=== PATIENT | female | born 1965 | race Caucasian/White ===

== ENCOUNTER 2017-06-10 04:12 | Inpatient (IN) | payer BC ==
[~2017-06-10] VITALS: Ht 144.8 cm; Wt 65.6 kg
[2017-06-10 05:40] VITALS: BP 97/52; RESP 20
[2017-06-10] MEDS ORDERED: METF500T4 PO (06:41)
[2017-06-10 08:00] VITALS: BP 81/50; RESP 19
[2017-06-10 09:00] VITALS: BP 101/52; PULSE 102
[2017-06-10] MEDS ORDERED: ACETAMINOPHEN 650 MG SUPP PR PRN (09:30)
[2017-06-10] MEDS ORDERED: DOCUSATE SODIUM 100 MG CAP PO PRN (09:30)
[2017-06-10] MEDS ORDERED: NACL 0.9% 3 ML SYG IV SCH (09:30)
[2017-06-10] MEDS ORDERED: MAGNESIUM HYDROXIDE 30ML CUP PO PRN (09:30)
[2017-06-10] MEDS ORDERED: ONDANSETRON 4 MG INJ IV PRN (09:30)
[2017-06-10] MEDS ORDERED: BISACODYL 10 MG SUPP PR PRN (09:30)
[2017-06-10] MEDS: SOD CHLORIDE 0.9% 1,000 ML IV SCH ×2 (10:05→20:34)
--- NOTE | 2017-06-10 10:15 | HP ---
Date/Time of Note Date/Time of Note DATE: 06/10/17 TIME: 10:09 Assessment/Plan VTE Prophylaxis VTE Prophylaxis Intervention: SCD's Lines/Catheters [facility] Saline Lock Assessment/Plan Chief Complaint/Hosp Course Medical/surgical history 1. Reported abdominal pain secondary to pyelonephritis. Patient noted with positive leukocyte esterase test. Follow-up on urine culture. Start on antibiotic for now. Will provide with antipyretics as needed. 2. Mild hydroureteronephrosis. Patient was seen with abdominal pelvic CT scan showing hydroureteral ureteronephrosis with a 5 x 4 mm calculus in the left ureterovesicular junction. Patient also seen with some AK I. Baseline renal function unknown. Will provide with IV hydration. Will get urologist pending clinical course. 3. Acute kidney injury on likely chronic kidney disease. Start on IV hydration for now. Will plan for renal consultation 4. Hyponatremia. Provide with IV hydration. Follow-up on electrolytes. 5. Diabetes. Follow-up on A1c. Start insulin regimen for now. Will adjust as needed. 6. History of dyslipidemia. Follow-up on fasting lipid panel. 7. Ventral hernia. Patient with no reports of pain at this time. Patient instructed for outpatient follow-up. 8. Possible liver cirrhosis per abdominal imaging. Patient with no reported alcohol abuse. Follow-up on hepatic panel. Follow-up on LFT. 9. Diverticulosis without diverticulitis. Stable at present. Will monitor. Admission process 40 minutes Discussed plan of care with Dr. Lawton Problems: HPI/ROS Admit Date/Time Admit Date/Time Jun 10, 2017 at 05:49 Hx of Present Illness This is a 51-year-old female with history of diabetes, dyslipidemia, cholelithiasis status post cholecystectomy, umbilical hernia (for 25 years reportedly), who came to [facility] due to reports of flank pain. Patient was initially transferred from outside hospital due to insurance reasons. Patient did report that reason for coming to the hospital was that she had abdominal pain on bilateral flanks side posteriorly for 3 days duration. She also reported having some fevers and subjective chills. She also had some dysuria and suspect hematuria. Subsequently she went to [facility] initially for further evaluation. Upon examination she had a CT scan of her abdomen and pelvis that initially did show her to have mild left hydroureteronephrosis traceable to a 5 x 4 mm calculus at the left ureterovesicular junction. There is also seen mild perinephric inflammatory stranding of the left kidney additionally tiny nonobstructing left lower pole renal calculus. Patient was seen also incidentally with development of nodular contour of the liver concerning for possible cirrhosis with hepatomegaly and portal hypertension. She was seen also with a stable left adrenal gland adenoma as well as splenomegaly. Enlarging fat-containing left paracentral ventral hernia seen again measuring 7.7 x 6.5 centimeters. She was seen with diverticulosis without diverticulitis. Patient denies any anterior abdominal pain and reports primary pain is on bilateral flanks. She denies any history of recurrent UTI. Blood work done at [facility] did show to have white count of 9.3 and some anemia with 12.3 and hematocrit 35.7. She was noted to be hyponatremic with sodium 131. She was seen also with some renal insufficiency with BUN of 43 and creatinine of 1.3. She did have a glucose also at 231. She was also noted with a positive leukocyte esterase test. Currently the patient remains afebrile. She states that the pain subsequently has subsided on bilateral flank only pain 2 out of intensity nonradiating. We will evaluate her for the aformentiond issues ROS 12 point review of systems obtained and entirely negative except that mentioned in history of present illness PMH/Family/Social Past Medical History Medical/surgical history diabetes, dyslipidemia, cholelithiasis status post cholecystectomy, umbilical hernia (for 25 years reportedly), Social History Smoking Status: Never smoker Exam/Review of Systems Vital Signs Vitals Vital Signs Date Time Temp Pulse Resp B/P Pulse Ox O2 Delivery O2 Flow Rate FiO2 06/10/17 08:00 98.8 106 19 81/50 95 Exam Constitutional: alert, oriented Psych: nl mood/affect Head: normocephalic Respiratory: clear to auscultation Cardiovascular: nl pulses, regular rate and rhythm Gastrointestinal: other (Noted with umbilical hernia), soft Neurological: 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 intact, nl mental status, nl speech Skin: nl turgor Medications Medications Current Medications Sodium Chloride (NS) 1,000 ml @ 100 mls/hr Q10H IV Last administered on t 10:05; Admin Dose 100 MLS/HR; Start 06/10/17 at 09:17 Ondansetron HCl (Zofran Inj) 4 mg Q6H PRN IV NAUSEA AND/OR VOMITING; Start at 09:30 Acetaminophen (Tylenol Tab) 650 mg Q6H PRN PO PAIN LEVEL 1-3 OR FEVER; Start at 09:30 Acetaminophen (Tylenol Supp) 650 mg Q6H PRN [place] PAIN LEVEL 1-3 OR FEVER; Start 06/10/17 at 09:30 Docusate Sodium (Colace) 100 mg Q12H PRN PO CONSTIPATION; Start 06/10/17 at 09: 30 Magnesium Hydroxide (Milk Of Mag) 30 ml DAILY PRN PO CONSTIPATION; Start at 09:30 Bisacodyl (Dulcolax Supp) 10 mg DAILY PRN [place] CONSTIPATION; Start 06/10/17 at 09 :30 Pantoprazole (Protonix Iv) 40 mg DAILY@06 IV ; Start 06/11/17 at 06:00 Diagnostic Test (Pha) (Accu-Chek) 1 ea 02 XX ; Start 06/11/17 at 02:00 Diagnostic Test (Pha) (Accu-Chek) 1 ea 02 XX ; Start 06/11/17 at 02:00 Tramadol HCl 50 mg 50 mg Q6H PRN PO pain; Start 06/10/17 at 10:30 Ceftriaxone Sodium (Rocephin) 50 ml @ 100 mls/hr Q24H IVPB ; Start 06/10/17 at 11:00 ALVARO PETERS Jun 10, 2017 10:15
[2017-06-10] MEDS: CEFTRIAXONE 2 GM/50 ML (PMX) 50 ML IVPB SCH (11:22)
[2017-06-10] MEDS: INSULIN ASPART [NOVOLOG] 3 ML PEN SC SCH ×3 (11:54→20:34)
[2017-06-10 12:11] LABS: ABNORMAL IP MESSAGE 1; HEMATOCRIT 29.6 % (37.0-47.0); HEMOGLOBIN 9.6 g/dl (12.0-16.0); MEAN CORPUSCULAR HEMOGLOBIN 29.9 pg (29.0-33.0); MEAN CORPUSCULAR HGB CONC 32.4 g/dl (32.0-37.0); MEAN CORPUSCULAR VOLUME 92.2 fl (82.0-101.0); MEAN PLATELET VOLUME 12.6 fl (7.4-10.4); RED BLOOD COUNT 3.21 10^6/ul (4.20-5.40); RED CELL DISTRIBUTION WIDTH 16.1 % (11.5-14.5)
[2017-06-10 12:13] LABS: POSITIVE DIFF @See below
[2017-06-10 12:32] LABS: ALBUMIN 2.7 g/dl (3.3-4.9); ALBUMIN/GLOBULIN RATIO 0.75; BILIRUBIN,DIRECT 0.4 mg/dl (0.00-0.20); BILIRUBIN,INDIRECT 1.4 mg/dl (0-1.1); BILIRUBIN,TOTAL 1.8 mg/dl (0.2-1.3); CREATININE 0.97 mg/dl (0.44-1.00); POTASSIUM 4.2 mmol/L (3.5-5.1); TOTAL PROTEIN 6.3 g/dl (6.1-8.1)
[2017-06-10 13:32] LABS: EOSINOPHILS # 0.1 10^3/ul (0.0-0.5); LYMPHOCYTES # 0.5 10^3/ul (0.8-2.9); MONOCYTE # 0.3 10^3/ul (0.3-0.9); NEUTROPHIL # 4.8 10^3/ul (1.6-7.5)
[2017-06-10 13:33] LABS: PLATELET COUNT 43 10^3/UL (140-415)
[2017-06-10 14:00] VITALS: BP 110/62; RESP 20
[2017-06-10] MEDS: ACETAMINOPHEN 325 MG TAB PO PRN (14:19)
[2017-06-10] MEDS: traMADol 50 MG TAB PO PRN (15:13)
[2017-06-10 16:05] VITALS: PULSE 102
--- NOTE | 2017-06-10 16:57 | CONS ---
Date/Time of Note Date/Time of Note DATE: 06/10/17 TIME: 16:56 Consultation Date/Type/Reason Admit Date/Time Jun 10, 2017 at 05:49 Date of Consultation: Jun 10, 2017 Type of Consultation: ID Reason for Consultation Antibiotic management Psychological: nl mood/affect Social History Smoking Status: Never smoker Exam/Review of Systems Vital Signs Vitals Vital Signs Date Time Temp Pulse Resp B/P Pulse Ox O2 Delivery O2 Flow Rate FiO2 06/10/17 16:05 99.6 102 06/10/17 14:00 20 110/62 99 Results Result Diagram: 06/10/17 1150 06/10/17 1150 Results 24 hrs Laboratory Tests Test 06/10/17 11:50 White Blood Count 6.1 Red Blood Count 3.21 L Hemoglobin 9.6 L Hematocrit 29.6 L Mean Corpuscular Volume 92.2 Mean Corpuscular Hemoglobin 29.9 Mean Corpuscular Hemoglobin Concent 32.4 Red Cell Distribution Width 16.1 H Platelet Count 43 L Mean Platelet Volume 12.6 H Neutrophils % 78.0 H Lymphocytes % 9.0 L Monocytes % 5.0 Eosinophils % 2.0 Basophils % Nucleated Red Blood Cells % 0.0 Neutrophils # 4.8 Band Neutrophils # 4.8 H Lymphocytes # 0.5 L Monocytes # 0.3 Eosinophils # 0.1 Basophils # Nucleated Red Blood Cells # Sodium Level 142 Potassium Level 4.2 Chloride Level 109 Carbon Dioxide Level 17 L Anion Gap 20 H Blood Urea Nitrogen 33 H Creatinine 0.97 Glucose Level 185 Bedside Glucose 208 Hemoglobin A1c 7.2 H Calcium Level 8.0 L Total Bilirubin 1.8 H Direct Bilirubin 0.40 H Indirect Bilirubin 1.4 H Aspartate Amino Transf (AST/SGOT) 15 Alanine Aminotransferase (ALT/SGPT) 29 Alkaline Phosphatase 72 Total Protein 6.3 Albumin 2.7 L Globulin 3.60 H Albumin/Globulin Ratio 0.75 Medications Medications Current Medications Sodium Chloride (NS) 1,000 ml @ 100 mls/hr Q10H IV Last administered on t 10:05; Admin Dose 100 MLS/HR; Start 06/10/17 at 09:17 Ondansetron HCl (Zofran Inj) 4 mg Q6H PRN IV NAUSEA AND/OR VOMITING; Start at 09:30 Acetaminophen (Tylenol Tab) 650 mg Q6H PRN PO PAIN LEVEL 1-3 OR FEVER Last administered on 06/10/17 14:19; Admin Dose 650 MG; Start 06/10/17 at 09:30 Acetaminophen (Tylenol Supp) 650 mg Q6H PRN [place] PAIN LEVEL 1-3 OR FEVER; Start 06/10/17 at 09:30 Docusate Sodium (Colace) 100 mg Q12H PRN PO CONSTIPATION; Start 06/10/17 at 09: 30 Magnesium Hydroxide (Milk Of Mag) 30 ml DAILY PRN PO CONSTIPATION; Start at 09:30 Bisacodyl (Dulcolax Supp) 10 mg DAILY PRN [place] CONSTIPATION; Start 06/10/17 at 09 :30 Pantoprazole (Protonix Iv) 40 mg DAILY@06 IV ; Start 06/11/17 at 06:00 Diagnostic Test (Pha) (Accu-Chek) 1 ea 02 XX ; Start 06/11/17 at 02:00 Diagnostic Test (Pha) (Accu-Chek) 1 ea 02 XX ; Start 06/11/17 at 02:00 Tramadol HCl 50 mg 50 mg Q6H PRN PO pain Last administered on 06/10/17 15:13; Admin Dose 50 MG; Start 06/10/17 at 10:30 Ceftriaxone Sodium (Rocephin) 50 ml @ 100 mls/hr Q24H IVPB Last administered on 06/10/17 11:22; Admin Dose 100 MLS/HR; Start 06/10/17 at 11:00 JHONNY GUERRERO MD Jun 10, 2017 16:57
[2017-06-10 20:25] VITALS: BP 113/53; RESP 16
[2017-06-11] MEDS: ACCU-CHEK XX SCH ×2 (02:00)
[2017-06-11 02:48] VITALS: BP 130/57; RESP 16
[2017-06-11 05:00] VITALS: Ht 144.8 cm; Wt 65.6 kg
[2017-06-11] MEDS: PANTOPRAZOLE 40 MG INJ IV SCH (05:43)
[2017-06-11] MEDS: ACETAMINOPHEN 325 MG TAB PO PRN ×2 (05:44→14:10)
[2017-06-11] MEDS: SOD CHLORIDE 0.9% 1,000 ML IV SCH ×3 (06:30→17:30)
[2017-06-11 06:37] LABS: ALBUMIN 2.6 g/dl (3.3-4.9); ALBUMIN/GLOBULIN RATIO 0.76; BILIRUBIN,INDIRECT 0.9 mg/dl (0-1.1); BILIRUBIN,TOTAL 0.9 mg/dl (0.2-1.3); CALCIUM 8.2 mg/dl (8.4-10.2); CHOL/HDL RATIO 6.1 RATIO; CREATININE 0.72 mg/dl (0.44-1.00); MAGNESIUM 1.9 mg/dl (1.7-2.5); PHOSPHORUS 3.2 mg/dl (2.5-4.9); POTASSIUM 3.5 mmol/L (3.5-5.1)
[2017-06-11 06:44] LABS: T3 UPTAKE 36.3 % (23.5-40.5)
[2017-06-11 06:58] LABS: THYROID STIMULATING HORMONE 1.7 MIU/L (0.465-4.680)
[2017-06-11 07:25] VITALS: BP 96/57; RESP 18
[2017-06-11] MEDS: INSULIN ASPART [NOVOLOG] 3 ML PEN SC SCH ×4 (07:59→21:00)
[2017-06-11] MEDS: CEFTRIAXONE 2 GM/50 ML (PMX) 50 ML IVPB SCH (11:24)
--- NOTE | 2017-06-11 13:46 | CONS ---
Date/Time of Note Date/Time of Note DATE: 06/11/17 TIME: 13:46 Assessment/Plan Assessment/Plan Chief Complaint/Hosp Course Alert feels better still with significant bilateral flank pain also complaining of abdominal distention and bloating no fevers, still with ongoing fevers T-max 101 yesterday T-current 98.7 pulse 93 respirations 18 blood pressure 96/ 57 saturation 92% on room air Microbiology: Blood cultures remain negative urine culture preliminary negative Antimicrobials: Ceftriaxone. Physical examination: Well-developed middle-aged woman who is alert in no distress. Head atraumatic normocephalic sclera nonicteric. Bugle mucosa pink neck is supple chest rise symmetrical. Breath sounds clear. Heart: S1- S2. Abdomen distended, soft abdominal hernia present. Bowel tones present. Bilateral CVA tenderness. Extremities without cyanosis edema. Assessment: 1. Systemic inflammatory response syndrome 2. Acute pyelonephritis 3. Obstructive uropathy with a CT scan from another facility revealed hydroureteral ureteronephrosis with a 5.4 mm calculus in the left ureterovesicular junction 4. Diabetes Plan: Clinically improving, continue antibiotics, follow final cultures, pending urology evaluation. DW patient Problems: Consultation Date/Type/Reason Admit Date/Time Jun 10, 2017 at 05:49 Initial Consult Date 06/10/17 Type of Consultation: ID Exam/Review of Systems Vital Signs Vitals Vital Signs Date Time Temp Pulse Resp B/P Pulse Ox O2 Delivery O2 Flow Rate FiO2 06/11/17 07:25 98.7 93 18 96/57 93 Intake and Output 06/10/17 06/10/17 06/11/17 15:00 23:00 07:00 Intake Total 50 ml 1750 ml 1880 ml Balance 50 ml 1750 ml 1880 ml Results Result Diagram: 06/10/17 1150 06/11/17 0451 Results 24 hrs Laboratory Tests Test 06/10/17 17:01 06/10/17 20:33 06/11/17 04:51 06/11/17 07:58 Bedside Glucose 143 132 129 Sodium Level 138 Potassium Level 3.5 Chloride Level 105 Carbon Dioxide Level 19 L Anion Gap 18 H Blood Urea Nitrogen 20 # Creatinine 0.72 Glucose Level 116 # Calcium Level 8.2 L Phosphorus Level 3.2 Magnesium Level 1.9 Total Bilirubin 0.9 Direct Bilirubin 0.00 # Indirect Bilirubin 0.9 Aspartate Amino Transf (AST/SGOT) 18 Alanine Aminotransferase (ALT/SGPT) 26 Alkaline Phosphatase 80 Total Protein 6.0 L Albumin 2.6 L Globulin 3.40 H Albumin/Globulin Ratio 0.76 Triglycerides Level 181 H Cholesterol Level 61 L LDL Cholesterol, Calculated 15 HDL Cholesterol 10 L Cholesterol/HDL Ratio 6.1 Thyroid Stimulating Hormone (TSH) 1.700 Free Thyroxine Index 2.58 Thyroxine (T4) 7.1 Triiodothyronine (T3) Uptake 36.3 Test 06/11/17 11:29 Bedside Glucose 157 Medications Medications Current Medications Sodium Chloride (NS) 1,000 ml @ 100 mls/hr Q10H IV Last administered on 06:30; Admin Dose 100 MLS/HR; Start 06/10/17 at 09:17 Ondansetron HCl (Zofran Inj) 4 mg Q6H PRN IV NAUSEA AND/OR VOMITING; Start at 09:30 Acetaminophen (Tylenol Tab) 650 mg Q6H PRN PO PAIN LEVEL 1-3 OR FEVER Last administered on 06/11/17 05:44; Admin Dose 650 MG; Start 06/10/17 at 09:30 Acetaminophen (Tylenol Supp) 650 mg Q6H PRN [place] PAIN LEVEL 1-3 OR FEVER; Start 06/10/17 at 09:30 Docusate Sodium (Colace) 100 mg Q12H PRN PO CONSTIPATION; Start 06/10/17 at 09: 30 Magnesium Hydroxide (Milk Of Mag) 30 ml DAILY PRN PO CONSTIPATION; Start at 09:30 Bisacodyl (Dulcolax Supp) 10 mg DAILY PRN [place] CONSTIPATION; Start 06/10/17 at 09 :30 Pantoprazole (Protonix Iv) 40 mg DAILY@06 IV Last administered on 06/11/17 05: 43; Admin Dose 40 MG; Start 06/11/17 at 06:00 Diagnostic Test (Pha) (Accu-Chek) 1 ea 02 XX ; Start 06/11/17 at 02:00 Diagnostic Test (Pha) (Accu-Chek) 1 ea 02 XX ; Start 06/11/17 at 02:00 Tramadol HCl 50 mg 50 mg Q6H PRN PO pain Last administered on 06/10/17 15:13; Admin Dose 50 MG; Start 06/10/17 at 10:30 Ceftriaxone Sodium (Rocephin) 50 ml @ 100 mls/hr Q24H IVPB Last administered on 06/11/17t 11:24; Admin Dose 100 MLS/HR; Start 06/10/17 at 11:00 TOSIN CORTEZ NP Jun 11, 2017 13:46
[2017-06-11 14:08] VITALS: BP 116/60; RESP 18
--- NOTE | 2017-06-11 15:09 | PN ---
Date/Time of Note Date/Time of Note DATE: 06/11/17 TIME: 15:06 Assessment/Plan VTE Prophylaxis VTE Prophylaxis Intervention: SCD's Lines/Catheters [facility] Saline Lock Assessment/Plan Chief Complaint/Hosp Course Medical/surgical history 1. Reported abdominal pain secondary to pyelonephritis. Patient noted with positive leukocyte esterase test. Follow-up on urine culture. Start on antibiotic for now. Will provide with antipyretics as needed. Patient noted with calculus in the left ureterovesicular junction. Will start on Flomax for now and continue with IV hydration. Should infection worsen and white count elevated will plan to get urologist evaluation. (Discussed with Dr. Lew) 2. Mild hydroureteronephrosis. Patient was seen with abdominal pelvic CT scan showing hydroureteral ureteronephrosis with a 5 x 4 mm calculus in the left ureterovesicular junction. Patient also seen with some AK I. Baseline renal function unknown. Will provide with IV hydration. Will start on Flomax. 3. Acute kidney injury on likely chronic kidney disease. Start on IV hydration for now. Will plan for renal consultation 4. Hyponatremia. Provide with IV hydration. Follow-up on electrolytes. 5. Diabetes. Follow-up on A1c. Start insulin regimen for now. Will adjust as needed. 6. History of dyslipidemia. Follow-up on fasting lipid panel. 7. Ventral hernia. Patient with no reports of pain at this time. Patient instructed for outpatient follow-up. 8. Possible liver cirrhosis per abdominal imaging. Patient with no reported alcohol abuse. Follow-up on hepatic panel. Follow-up on LFT. 9. Diverticulosis without diverticulitis. Stable at present. Will monitor. Disposition and plan: Continue with antibiotics. Await for clinical improvement of pyelonephritis. Will get urologist should condition worsen. Will follow up. Discussed plan of care with Dr. Oconnor Problems: Subjective 24 Hr Interval Summary Free Text/Dictation No reports of abdominal pain at this time. Comfortable at present Exam/Review of Systems Vital Signs Vitals Vital Signs Date Time Temp Pulse Resp B/P Pulse Ox O2 Delivery O2 Flow Rate FiO2 06/11/17 14:08 101.8 103 18 116/60 84 Intake and Output 06/10/17 06/10/17 06/11/17 14:59 22:59 06:59 Intake Total 50 ml 1750 ml 1880 ml Balance 50 ml 1750 ml 1880 ml Exam Constitutional: alert, oriented Psych: nl mood/affect Neck: supple Respiratory: clear to auscultation Cardiovascular: regular rate and rhythm Gastrointestinal: other (Minimally tender bilateral flanks. 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 intact, nl mental status, nl speech Results Result Diagram: 06/10/17 1150 06/11/17 0451 Results 24 hrs Laboratory Tests Test 06/10/17 17:01 06/10/17 20:33 06/11/17 04:51 06/11/17 07:58 Bedside Glucose 143 132 129 Sodium Level 138 Potassium Level 3.5 Chloride Level 105 Carbon Dioxide Level 19 L Anion Gap 18 H Blood Urea Nitrogen 20 # Creatinine 0.72 Glucose Level 116 # Calcium Level 8.2 L Phosphorus Level 3.2 Magnesium Level 1.9 Total Bilirubin 0.9 Direct Bilirubin 0.00 # Indirect Bilirubin 0.9 Aspartate Amino Transf (AST/SGOT) 18 Alanine Aminotransferase (ALT/SGPT) 26 Alkaline Phosphatase 80 Total Protein 6.0 L Albumin 2.6 L Globulin 3.40 H Albumin/Globulin Ratio 0.76 Triglycerides Level 181 H Cholesterol Level 61 L LDL Cholesterol, Calculated 15 HDL Cholesterol 10 L Cholesterol/HDL Ratio 6.1 Thyroid Stimulating Hormone (TSH) 1.700 Free Thyroxine Index 2.58 Thyroxine (T4) 7.1 Triiodothyronine (T3) Uptake 36.3 Test 06/11/17 11:29 Bedside Glucose 157 Medications Medications Current Medications Sodium Chloride (NS) 1,000 ml @ 100 mls/hr Q10H IV Last administered on 06:30; Admin Dose 100 MLS/HR; Start 06/10/17 at 09:17 Ondansetron HCl (Zofran Inj) 4 mg Q6H PRN IV NAUSEA AND/OR VOMITING; Start at 09:30 Acetaminophen (Tylenol Tab) 650 mg Q6H PRN PO PAIN LEVEL 1-3 OR FEVER Last administered on 06/11/17 14:10; Admin Dose 650 MG; Start 06/10/17 at 09:30 Acetaminophen (Tylenol Supp) 650 mg Q6H PRN [place] PAIN LEVEL 1-3 OR FEVER; Start 06/10/17 at 09:30 Docusate Sodium (Colace) 100 mg Q12H PRN PO CONSTIPATION; Start 06/10/17 at 09: 30 Magnesium Hydroxide (Milk Of Mag) 30 ml DAILY PRN PO CONSTIPATION; Start at 09:30 Bisacodyl (Dulcolax Supp) 10 mg DAILY PRN [place] CONSTIPATION; Start 06/10/17 at 09 :30 Pantoprazole (Protonix Iv) 40 mg DAILY@06 IV Last administered on 06/11/17 05: 43; Admin Dose 40 MG; Start 06/11/17 at 06:00 Diagnostic Test (Pha) (Accu-Chek) 1 ea 02 XX ; Start 06/11/17 at 02:00 Diagnostic Test (Pha) (Accu-Chek) 1 ea 02 XX ; Start 06/11/17 at 02:00 Tramadol HCl 50 mg 50 mg Q6H PRN PO pain Last administered on 06/10/17 15:13; Admin Dose 50 MG; Start 06/10/17 at 10:30 Ceftriaxone Sodium (Rocephin) 50 ml @ 100 mls/hr Q24H IVPB Last administered on 06/11/17 11:24; Admin Dose 100 MLS/HR; Start 06/10/17 at 11:00 ALVARO PETERS Jun 11, 2017 15:09
[2017-06-11 20:30] VITALS: BP 119/71; RESP 20
[2017-06-11] MEDS: TAMSULOSIN (SR) 0.4 MG CAP PO SCH (21:00)
[2017-06-12] MEDS: SOD CHLORIDE 0.9% 1,000 ML IV SCH ×2 (01:17→11:17)
[2017-06-12 02:00] VITALS: BP 103/63; RESP 20
[2017-06-12] MEDS: ACCU-CHEK XX SCH ×2 (02:00)
[2017-06-12] MEDS: ACETAMINOPHEN 325 MG TAB PO PRN ×2 (02:15→20:37)
[2017-06-12 05:52] LABS: ABNORMAL IP MESSAGE 1; HEMATOCRIT 29.6 % (37.0-47.0); HEMOGLOBIN 9.7 g/dl (12.0-16.0); MEAN CORPUSCULAR HGB CONC 32.8 g/dl (32.0-37.0); MEAN CORPUSCULAR VOLUME 91.6 fl (82.0-101.0); MEAN PLATELET VOLUME 11.8 fl (7.4-10.4); RED BLOOD COUNT 3.23 10^6/ul (4.20-5.40); RED CELL DISTRIBUTION WIDTH 15.5 % (11.5-14.5); WHITE BLOOD COUNT 3.9 10^3/ul (4.8-10.8)
[2017-06-12 05:53] LABS: PLATELET COUNT 41 10^3/UL (140-415); POSITIVE DIFF @See below
[2017-06-12 06:02] LABS: BASOPHILS % 0.3 % (0.0-2.0); MONOCYTE # 0.4 10^3/ul (0.3-0.9)
[2017-06-12] MEDS: PANTOPRAZOLE 40 MG INJ IV SCH (06:05)
[2017-06-12 06:43] LABS: CALCIUM 8.4 mg/dl (8.4-10.2); CREATININE 0.65 mg/dl (0.44-1.00); POTASSIUM 3.3 mmol/L (3.5-5.1)
[2017-06-12 08:00] VITALS: BP 116/68; RESP 20
[2017-06-12] MEDS: INSULIN ASPART [NOVOLOG] 3 ML PEN SC SCH ×4 (08:00→20:39)
[2017-06-12] MEDS: TAMSULOSIN (SR) 0.4 MG CAP PO SCH ×2 (08:48→20:37)
[2017-06-12 09:46] LABS: WHITE BLOOD COUNT 6.1 10^3/ul (4.8-10.8)
[2017-06-12] MEDS: CEFTRIAXONE 2 GM/50 ML (PMX) 50 ML IVPB SCH (11:08)
--- NOTE | 2017-06-12 13:36 | CONS ---
Date/Time of Note Date/Time of Note DATE: 06/12/17 TIME: 13:26 Assessment/Plan Assessment/Plan Chief Complaint/Hosp Course Assessment/Plan Chief Complaint/Hosp Course Alert. Patient reports improvement in Bilateral Flank pain. Fever 99.4 this morning. Microbiology: Blood cultures remain negative urine culture preliminary negative Antimicrobials: Ceftriaxone. Physical examination: Well-developed middle-aged woman who is alert in no distress. Head atraumatic normocephalic sclera nonicteric. Bugle mucosa pink neck is supple chest rise symmetrical. Breath sounds clear. Heart: S1- S2. Abdomen distended, soft abdominal hernia present. Bowel tones present. Bilateral CVA tenderness. Extremities without cyanosis edema. Assessment: 1. Systemic inflammatory response syndrome 2. Acute pyelonephritis 3. Obstructive uropathy with a CT scan from another facility revealed hydroureteral ureteronephrosis with a 5.4 mm calculus in the left ureterovesicular junction 4. Diabetes 5. Fever 6. Bilateral Flank Pain Improved Plan: Clinically stable. Improving Bilateral Flank Pain. Continue antibiotics. Follow final cultures. Pain Management. Pending urology evaluation. DW patient. Problems: Consultation Date/Type/Reason Admit Date/Time Jun 10, 2017 at 05:49 Initial Consult Date 06/10/17 Type of Consultation: ID Exam/Review of Systems Vital Signs Vitals Vital Signs Date Time Temp Pulse Resp B/P Pulse Ox O2 Delivery O2 Flow Rate FiO2 06/12/17 08:00 99.4 99 20 116/68 94 Intake and Output 06/11/17 06/11/17 06/12/17 15:00 23:00 07:00 Intake Total 1050 ml 800 ml 1450 ml Balance 1050 ml 800 ml 1450 ml Results Result Diagram: 06/12/17 0535 06/12/17 0535 Results 24 hrs Laboratory Tests Test 06/11/17 17:16 06/11/17 22:06 06/12/17 02:13 06/12/17 05:35 Bedside Glucose 142 212 112 White Blood Count 3.9 #L Red Blood Count 3.23 L Hemoglobin 9.7 L Hematocrit 29.6 L Mean Corpuscular Volume 91.6 Mean Corpuscular Hemoglobin 30.0 Mean Corpuscular Hemoglobin Concent 32.8 Red Cell Distribution Width 15.5 H Platelet Count 41 L Mean Platelet Volume 11.8 H Neutrophils % Lymphocytes % 26.0 Monocytes % 11.0 Eosinophils % Basophils % 0.3 Nucleated Red Blood Cells % 0.0 Neutrophils # Lymphocytes # 1.0 Monocytes # 0.4 Eosinophils # Basophils # 0.0 Nucleated Red Blood Cells # 0.0 Sodium Level 144 Potassium Level 3.3 L Chloride Level 108 Carbon Dioxide Level 21 Anion Gap 18 H Blood Urea Nitrogen 9 # Creatinine 0.65 Glucose Level 138 Calcium Level 8.4 Test 06/12/17 08:04 06/12/17 11:40 Bedside Glucose 131 175 Medications Medications Current Medications Sodium Chloride (NS) 1,000 ml @ 100 mls/hr Q10H IV Last administered on 17:30; Admin Dose 100 MLS/HR; Start 06/10/17 at 09:17 Ondansetron HCl (Zofran Inj) 4 mg Q6H PRN IV NAUSEA AND/OR VOMITING; Start at 09:30 Acetaminophen (Tylenol Tab) 650 mg Q6H PRN PO PAIN LEVEL 1-3 OR FEVER Last administered on 06/12/17 02:15; Admin Dose 650 MG; Start 06/10/17 at 09:30 Acetaminophen (Tylenol Supp) 650 mg Q6H PRN [place] PAIN LEVEL 1-3 OR FEVER; Start 06/10/17 at 09:30 Docusate Sodium (Colace) 100 mg Q12H PRN PO CONSTIPATION; Start 06/10/17 at 09: 30 Magnesium Hydroxide (Milk Of Mag) 30 ml DAILY PRN PO CONSTIPATION; Start at 09:30 Bisacodyl (Dulcolax Supp) 10 mg DAILY PRN [place] CONSTIPATION; Start 06/10/17 at 09 :30 Pantoprazole (Protonix Iv) 40 mg DAILY@06 IV Last administered on 06/12/17 06: 05; Admin Dose 40 MG; Start 06/11/17 at 06:00 Diagnostic Test (Pha) (Accu-Chek) 1 ea 02 XX ; Start 06/11/17 at 02:00 Diagnostic Test (Pha) (Accu-Chek) 1 ea 02 XX ; Start 06/11/17 at 02:00 Tramadol HCl 50 mg 50 mg Q6H PRN PO pain Last administered on 06/10/17 15:13; Admin Dose 50 MG; Start 06/10/17 at 10:30 Ceftriaxone Sodium (Rocephin) 50 ml @ 100 mls/hr Q24H IVPB Last administered on 06/12/17 11:08; Admin Dose 100 MLS/HR; Start 06/10/17 at 11:00 Tamsulosin HCl (Flomax) 0.4 mg BID PO Last administered on 06/12/17 08:48; Admin Dose 0.4 MG; Start 06/11/17 at 21:00 RON MONTES NP Jun 12, 2017 13:36
--- NOTE | 2017-06-12 13:40 | PN ---
Date/Time of Note Date/Time of Note DATE: 06/12/17 TIME: 13:34 Assessment/Plan VTE Prophylaxis VTE Prophylaxis Intervention: SCD's Lines/Catheters IV Catheter Type (from Nrsg): Saline Lock Assessment/Plan Assessment/Plan 1. Pyelonephritis with obstructive uropathy, change antibiotics to zosyn 2. Left distal ureteral calculus with hydro, on IVF and flomax 3. Sepsis, IVF and antibiotics 4. Diabetes mellitus, on ISS 6. History of dyslipidemia. Follow-up on fasting lipid panel. 7. Ventral hernia. Patient with no reports of pain at this time. Patient instructed for outpatient follow-up. 8. Possible liver cirrhosis per abdominal imaging. Patient with no reported alcohol abuse. Follow-up on hepatic panel. Follow-up on LFT. 9. Diverticulosis without diverticulitis. Stable at present. Will monitor. Subjective 24 Hr Interval Summary Free Text/Dictation still has left lower back/flank pain but less Exam/Review of Systems Vital Signs Vitals Vital Signs Date Time Temp Pulse Resp B/P Pulse Ox O2 Delivery O2 Flow Rate FiO2 06/12/17 08:00 99.4 99 20 116/68 94 Intake and Output 06/11/17 06/11/17 06/12/17 15:00 23:00 07:00 Intake Total 1050 ml 800 ml 1450 ml Balance 1050 ml 800 ml 1450 ml Exam Constitutional: alert, oriented, well developed Psych: nl mood/affect, no complaints Head: atraumatic, normocephalic Eyes: EOMI, PERRL, nl conjunctiva, nl lids, nl sclera ENMT: nl external ears & nose, nl lips & teeth, nl nasal mucosa & septum Neck: non-tender, supple Respiratory: clear to auscultation, normal air movement, No congested cough, No crackles/rales, No diminished breath sounds, No intercostal retraction, No labored breathing, No other, No respirations, No tactile fremitus, No wheezing Cardiovascular: nl pulses, regular rate and rhythm, No S3, No S4, No bruits, No diastolic murmur, No edema, No gallop, No irregular rhythm, No jugular venous distention (JVD), No murmurs/extra sounds, No other, No rub, No systolic murmur Gastrointestinal: nl liver, spleen, non-tender, soft, No ascites, No bowel sounds, No distended, No firm, No hepatomegaly, No mass , No other, No rebound or guarding, No splenomegaly, No surgical scars, No tender Musculoskeletal: nl extremities to inspection Extremities: normal pulses, No calf tenderness, No clubbing, No cyanosis, No edema, No other, No palpable cord, No pitting pedal edema, No tenderness Neurological: WATCH CASE POLISHER II-XII intact, nl mental status, nl speech, nl strength Skin: nl turgor Lymph: nl lymph nodes Results Result Diagram: 06/12/1735 06/12/17 0535 Results 24 hrs Laboratory Tests Test 06/11/17 17:16 06/11/17 22:06 06/12/17 02:13 06/12/17 05:35 Bedside Glucose 142 212 112 White Blood Count 3.9 #L Red Blood Count 3.23 L Hemoglobin 9.7 L Hematocrit 29.6 L Mean Corpuscular Volume 91.6 Mean Corpuscular Hemoglobin 30.0 Mean Corpuscular Hemoglobin Concent 32.8 Red Cell Distribution Width 15.5 H Platelet Count 41 L Mean Platelet Volume 11.8 H Neutrophils % Lymphocytes % 26.0 Monocytes % 11.0 Eosinophils % Basophils % 0.3 Nucleated Red Blood Cells % 0.0 Neutrophils # Lymphocytes # 1.0 Monocytes # 0.4 Eosinophils # Basophils # 0.0 Nucleated Red Blood Cells # 0.0 Sodium Level 144 Potassium Level 3.3 L Chloride Level 108 Carbon Dioxide Level 21 Anion Gap 18 H Blood Urea Nitrogen 9 # Creatinine 0.65 Glucose Level 138 Calcium Level 8.4 Test 06/12/17 08:04 06/12/17 11:40 Bedside Glucose 131 175 Medications Medications Current Medications Sodium Chloride (NS) 1,000 ml @ 100 mls/hr Q10H IV Last administered on 17:30; Admin Dose 100 MLS/HR; Start 06/10/17 at 09:17 Ondansetron HCl (Zofran Inj) 4 mg Q6H PRN IV NAUSEA AND/OR VOMITING; Start at 09:30 Acetaminophen (Tylenol Tab) 650 mg Q6H PRN PO PAIN LEVEL 1-3 OR FEVER Last administered on 06/12/17 02:15; Admin Dose 650 MG; Start 06/10/17 at 09:30 Acetaminophen (Tylenol Supp) 650 mg Q6H PRN [place] PAIN LEVEL 1-3 OR FEVER; Start 06/10/17 at 09:30 Docusate Sodium (Colace) 100 mg Q12H PRN PO CONSTIPATION; Start 06/10/17 at 09: 30 Magnesium Hydroxide (Milk Of Mag) 30 ml DAILY PRN PO CONSTIPATION; Start at 09:30 Bisacodyl (Dulcolax Supp) 10 mg DAILY PRN [place] CONSTIPATION; Start 06/10/17 at 09 :30 Pantoprazole (Protonix Iv) 40 mg DAILY@06 IV Last administered on 06/12/17 06: 05; Admin Dose 40 MG; Start 06/11/17 at 06:00 Diagnostic Test (Pha) (Accu-Chek) 1 ea 02 XX ; Start 06/11/17 at 02:00 Diagnostic Test (Pha) (Accu-Chek) 1 ea 02 XX ; Start 06/11/17 at 02:00 Tramadol HCl 50 mg 50 mg Q6H PRN PO pain Last administered on 06/10/17 15:13; Admin Dose 50 MG; Start 06/10/17 at 10:30 Ceftriaxone Sodium (Rocephin) 50 ml @ 100 mls/hr Q24H IVPB Last administered on 06/12/17 11:08; Admin Dose 100 MLS/HR; Start 06/10/17 at 11:00 Tamsulosin HCl (Flomax) 0.4 mg BID PO Last administered on 06/12/17 08:48; Admin Dose 0.4 MG; Start 06/11/17 at 21:00 KAILA MASON MD Jun 12, 2017 13:40
[2017-06-12] MEDS ORDERED: POTASSIUM CHLORIDE (SR) 20 MEQ TAB PO STA (13:46)
[2017-06-12] MEDS: PIPER-TAZO 3.375 GM IV (PMX) 100 ML IVPB SCH ×2 (14:26→22:20)
[2017-06-12] MEDS: 1/2 NS + KCL 20 MEQ 1,000 ML IV SCH ×2 (14:26→22:00)
[2017-06-12 15:11] VITALS: BP 106/74; RESP 19
[2017-06-12 20:00] VITALS: BP 119/66; RESP 17
[2017-06-13] MEDS: ACCU-CHEK XX SCH (02:00)
[2017-06-13 02:09] VITALS: BP 112/60; RESP 18
[2017-06-13 05:39] LABS: ABNORMAL IP MESSAGE 1; BASOPHILS % 0.3 % (0.0-2.0); EOSINOPHILS # 0.1 10^3/ul (0.0-0.5); EOSINOPHILS % 2.7 % (0.0-7.0); HEMATOCRIT 26.3 % (37.0-47.0); HEMOGLOBIN 8.8 g/dl (12.0-16.0); LYMPHOCYTES # 1.2 10^3/ul (0.8-2.9); LYMPHOCYTES % 36.1 % (15.0-51.0); MEAN CORPUSCULAR HEMOGLOBIN 30.6 pg (29.0-33.0); MEAN CORPUSCULAR HGB CONC 33.5 g/dl (32.0-37.0); MEAN CORPUSCULAR VOLUME 91.3 fl (82.0-101.0); MEAN PLATELET VOLUME 11.5 fl (7.4-10.4); MONOCYTE # 0.4 10^3/ul (0.3-0.9); MONOCYTES % 11.5 % (0.0-11.0); NEUTROPHIL # 1.6 10^3/ul (1.6-7.5); NEUTROPHILS % 48.5 % (39.0-77.0); RED BLOOD COUNT 2.88 10^6/ul (4.20-5.40); RED CELL DISTRIBUTION WIDTH 15.5 % (11.5-14.5); WHITE BLOOD COUNT 3.3 10^3/ul (4.8-10.8)
[2017-06-13 05:40] LABS: PLATELET COUNT 47 10^3/UL (140-415); POSITIVE DIFF @See below
[2017-06-13] MEDS: 1/2 NS + KCL 20 MEQ 1,000 ML IV SCH ×2 (06:19→17:23)
[2017-06-13] MEDS: PIPER-TAZO 3.375 GM IV (PMX) 100 ML IVPB SCH ×3 (06:19→23:03)
[2017-06-13] MEDS: PANTOPRAZOLE 40 MG INJ IV SCH (06:21)
[2017-06-13 06:25] LABS: CREATININE 0.62 mg/dl (0.44-1.00); POTASSIUM 3.5 mmol/L (3.5-5.1)
[2017-06-13] MEDS: INSULIN ASPART [NOVOLOG] 3 ML PEN SC SCH ×4 (08:00→20:31)
[2017-06-13 08:49] VITALS: BP 117/68; RESP 18
[2017-06-13] MEDS: TAMSULOSIN (SR) 0.4 MG CAP PO SCH ×2 (09:12→20:31)
--- NOTE | 2017-06-13 14:32 | PN ---
Date/Time of Note Date/Time of Note DATE: 06/13/17 TIME: 14:30 Assessment/Plan VTE Prophylaxis VTE Prophylaxis Intervention: SCD's Lines/Catheters IV Catheter Type (from Nrsg): Peripheral IV Assessment/Plan Assessment/Plan 1. Pyelonephritis with obstructive uropathy, change antibiotics to zosyn 2. Left distal ureteral calculus with hydro, on IVF and flomax, repeat US 3. Sepsis, IVF and antibiotics 4. Diabetes mellitus, on ISS 6. History of dyslipidemia. Follow-up on fasting lipid panel. 7. Ventral hernia. Patient with no reports of pain at this time. Patient instructed for outpatient follow-up. 8. Possible liver cirrhosis per abdominal imaging. Patient with no reported alcohol abuse. Follow-up on hepatic panel. Follow-up on LFT. 9. Diverticulosis without diverticulitis. Stable at present. Will monitor. Subjective 24 Hr Interval Summary Free Text/Dictation no flank pain but some suprapubic pain Exam/Review of Systems Vital Signs Vitals Vital Signs Date Time Temp Pulse Resp B/P Pulse Ox O2 Delivery O2 Flow Rate FiO2 06/13/17 08:49 98.6 87 18 117/68 98 Intake and Output 06/12/17 06/12/17 06/13/17 15:00 23:00 07:00 Intake Total 850 ml 350 ml 480 ml Balance 850 ml 350 ml 480 ml Exam Constitutional: alert, oriented Psych: nl mood/affect, no complaints Head: atraumatic, normocephalic Eyes: EOMI, PERRL, nl conjunctiva, nl lids ENMT: nl external ears & nose, nl lips & teeth, nl nasal mucosa & septum Neck: non-tender, supple Respiratory: clear to auscultation, normal air movement, No congested cough, No crackles/rales, No diminished breath sounds, No intercostal retraction, No labored breathing, No other, No respirations, No tactile fremitus, No wheezing Cardiovascular: nl pulses, regular rate and rhythm, No S3, No S4, No bruits, No diastolic murmur, No edema, No gallop, No irregular rhythm, No jugular venous distention (JVD), No murmurs/extra sounds, No other, No rub, No systolic murmur Gastrointestinal: nl liver, spleen, non-tender, soft, No ascites, No bowel sounds, No distended, No firm, No hepatomegaly, No mass , No other, No rebound or guarding, No splenomegaly, No surgical scars, No tender Musculoskeletal: nl extremities to inspection Extremities: normal pulses Neurological: CONTACT LENS EDGE BUFFER II-XII intact, nl mental status, nl speech, nl strength Skin: nl turgor Lymph: nl lymph nodes Results Result Diagram: 06/13/17 0452 06/13/17 0452 Results 24 hrs Laboratory Tests Test 06/12/17 17:30 06/12/17 20:36 06/13/17 02:23 06/13/17 04:52 Bedside Glucose 130 184 103 White Blood Count 3.3 L Red Blood Count 2.88 L Hemoglobin 8.8 L Hematocrit 26.3 L Mean Corpuscular Volume 91.3 Mean Corpuscular Hemoglobin 30.6 Mean Corpuscular Hemoglobin Concent 33.5 Red Cell Distribution Width 15.5 H Platelet Count 47 L Mean Platelet Volume 11.5 H Neutrophils % 48.5 Lymphocytes % 36.1 Monocytes % 11.5 H Eosinophils % 2.7 Basophils % 0.3 Nucleated Red Blood Cells % 0.0 Neutrophils # 1.6 Lymphocytes # 1.2 Monocytes # 0.4 Eosinophils # 0.1 Basophils # 0.0 Nucleated Red Blood Cells # 0.0 Sodium Level 143 Potassium Level 3.5 Chloride Level 109 Carbon Dioxide Level 21 Anion Gap 17 H Blood Urea Nitrogen 8 Creatinine 0.62 Glucose Level 127 Calcium Level 8.0 L Test 06/13/17 07:55 06/13/17 11:30 Bedside Glucose 128 120 Medications Medications Current Medications Ondansetron HCl (Zofran Inj) 4 mg Q6H PRN IV NAUSEA AND/OR VOMITING; Start at 09:30 Acetaminophen (Tylenol Tab) 650 mg Q6H PRN PO PAIN LEVEL 1-3 OR FEVER Last administered on 06/12/17t 20:37; Admin Dose 650 MG; Start 06/10/17 at 09:30 Acetaminophen (Tylenol Supp) 650 mg Q6H PRN [place] PAIN LEVEL 1-3 OR FEVER; Start 06/10/17 at 09:30 Docusate Sodium (Colace) 100 mg Q12H PRN PO CONSTIPATION; Start 06/10/17 at 09: 30 Magnesium Hydroxide (Milk Of Mag) 30 ml DAILY PRN PO CONSTIPATION; Start at 09:30 Bisacodyl (Dulcolax Supp) 10 mg DAILY PRN [place] CONSTIPATION; Start 06/10/17 at 09 :30 Pantoprazole (Protonix Iv) 40 mg DAILY@06 IV Last administered on 06/13/17 06: 21; Admin Dose 40 MG; Start 06/11/17 at 06:00 Diagnostic Test (Pha) (Accu-Chek) 1 ea 02 XX ; Start 06/11/17 at 02:00 Tramadol HCl (Ultram) 50 mg Q6H PRN PO pain Last administered on 06/10/17 15: 13; Admin Dose 50 MG; Start 06/10/17 at 10:30 Tamsulosin HCl 0.4 mg 0.4 mg BID PO Last administered on 06/13/17 09:12; Admin Dose 0.4 MG; Start 06/11/17 at 21:00 Piperacillin Sod/ Tazobactam Sod 100 ml @ 200 mls/hr Q8 IVPB Last administered on 06/13/17 06:19; Admin Dose 200 MLS/HR; Start 06/12/17 at 14:00 Potassium Chloride/Sodium Chloride (1/2 NS + KCl 20 Meq) 1,000 ml @ 125 mls/hr Q8H IV Last administered on 06/13/17 06:19; Admin Dose 125 MLS/HR; Start 06/12 at 14:00 Simethicone (Mylicon) 80 mg Q6H PRN PO DISTENSION/GAS/BLOATING Last administered on 06/12/17 22:20; Admin Dose 80 MG; Start 06/12/17 at 20:30 KAILA MASON MD Jun 13, 2017 14:32
[2017-06-13 15:09] VITALS: BP 115/69; RESP 22
--- NOTE | 2017-06-13 15:59 | RADRPT ---
PROCEDURE: Renal US. CLINICAL INDICATION: Renal dysfunction. TECHNIQUE: Multiple sonographic images of the kidneys and urinary bladder were obtained. The imag es were reviewed on a PACS workstation. COMPARISON: No prior studies are available for comparison. FINDINGS: The right kidney measures 12.1 cm. The left kidney measures 13.4 cm. There is no renal mass. There is moderate bilateral hydronephrosis with no obstructing lesion visualized. There is no renal calculus. Renal parenchymal thickness is normal bilaterally. Echogenicity is normal bilaterally. The perirenal regions are normal with no fluid collection or mass. The urinary bladder is unremarkable. IMPRESSION: 1. Moderate bilateral hydronephrosis. 2. Otherwise normal renal ultrasound. RPTAT: QQ .Guillermo Fuentes MD, Date Time Electronically viewed and signed by .Guillermo Fuentes MD, on 06/13/2017 15:59 .R/
--- NOTE | 2017-06-13 20:07 | CONS ---
Date/Time of Note Date/Time of Note DATE: 06/13/17 TIME: 20:02 Assessment/Plan Assessment/Plan Chief Complaint/Hosp Course ID PROGRESS NOTE 24H SUMMARY CURRENT ABX: ZOSYN * No fevers, VSS, NAD, no new issues * Microbiology: Blood cultures remain negative urine culture preliminary negative Physical examination: Well-developed middle-aged woman who is alert in no distress. Head atraumatic normocephalic sclera nonicteric. Neck supple chest rise symmetrical. Breath sounds clear. Heart: S1-S2. Abdomen distended, soft abdominal hernia present. Extremities without cyanosis edema. ID ASSESSMENT 51 yo Obese F admit with: 1. Systemic inflammatory response syndrome with fevers, leukocytosis 2. Acute pyelonephritis 3. Obstructive uropathy with a CT scan from another facility revealed hydroureteral ureteronephrosis with a 5.4 mm calculus in the left ureterovesicular junction * [facility] renal US: There is moderate bilateral hydronephrosis with no obstructing lesion visualized. 4. Diabetes 5. Bilateral Flank Pain Improved ID RECOMMENDATIONS/Plan Plan: Continue Zosyn -> will f/u tomorrow . Problems: Consultation Date/Type/Reason Admit Date/Time Jun 10, 2017 at 05:49 Initial Consult Date 06/10/17 Type of Consultation: ID Exam/Review of Systems Vital Signs Vitals Vital Signs Date Time Temp Pulse Resp B/P Pulse Ox O2 Delivery O2 Flow Rate FiO2 06/13/17 15:09 98.3 79 22 115/69 94 Intake and Output 06/12/17 06/12/17 06/13/17 15:00 23:00 07:00 Intake Total 850 ml 350 ml 480 ml Balance 850 ml 350 ml 480 ml Results Result Diagram: 06/13/17 0452 06/13/17 0452 Results 24 hrs Laboratory Tests Test 06/12/17 20:36 06/13/17 02:23 06/13/17 04:52 06/13/17 07:55 Bedside Glucose 184 103 128 White Blood Count 3.3 L Red Blood Count 2.88 L Hemoglobin 8.8 L Hematocrit 26.3 L Mean Corpuscular Volume 91.3 Mean Corpuscular Hemoglobin 30.6 Mean Corpuscular Hemoglobin Concent 33.5 Red Cell Distribution Width 15.5 H Platelet Count 47 L Mean Platelet Volume 11.5 H Neutrophils % 48.5 Lymphocytes % 36.1 Monocytes % 11.5 H Eosinophils % 2.7 Basophils % 0.3 Nucleated Red Blood Cells % 0.0 Neutrophils # 1.6 Lymphocytes # 1.2 Monocytes # 0.4 Eosinophils # 0.1 Basophils # 0.0 Nucleated Red Blood Cells # 0.0 Sodium Level 143 Potassium Level 3.5 Chloride Level 109 Carbon Dioxide Level 21 Anion Gap 17 H Blood Urea Nitrogen 8 Creatinine 0.62 Glucose Level 127 Calcium Level 8.0 L Test 06/13/17 11:30 06/13/17 17:25 Bedside Glucose 120 147 Medications Medications Current Medications Ondansetron HCl (Zofran Inj) 4 mg Q6H PRN IV NAUSEA AND/OR VOMITING; Start at 09:30 Acetaminophen (Tylenol Tab) 650 mg Q6H PRN PO PAIN LEVEL 1-3 OR FEVER Last administered on 06/12/17 20:37; Admin Dose 650 MG; Start 06/10/17 at 09:30 Acetaminophen (Tylenol Supp) [address] PAIN LEVEL 1-3 OR FEVER; Start 06/10/17 at 09:30 Docusate Sodium (Colace) 100 mg Q12H PRN PO CONSTIPATION; Start 06/10/17 at 09: 30 Magnesium Hydroxide (Milk Of Mag) 30 ml DAILY PRN PO CONSTIPATION; Start at 09:30 Bisacodyl (Dulcolax Supp) [address] CONSTIPATION; Start 06/10/17 at 09 :30 Pantoprazole (Protonix Iv) 40 mg DAILY@06 IV Last administered on 06/13/17 06: 21; Admin Dose 40 MG; Start 06/11/17 at 06:00 Diagnostic Test (Pha) (Accu-Chek) 1 ea 02 XX ; Start 06/11/17 at 02:00 Tramadol HCl (Ultram) 50 mg Q6H PRN PO pain Last administered on 06/10/17 15: 13; Admin Dose 50 MG; Start 06/10/17 at 10:30 Tamsulosin HCl 0.4 mg 0.4 mg BID PO Last administered on 06/13/17 09:12; Admin Dose 0.4 MG; Start 06/11/17 at 21:00 Piperacillin Sod/ Tazobactam Sod 100 ml @ 200 mls/hr Q8 IVPB Last administered on 06/13/17 15:11; Admin Dose 200 MLS/HR; Start 06/12/17 at 14:00 Potassium Chloride/Sodium Chloride (1/2 NS + KCl 20 Meq) 1,000 ml @ 125 mls/hr Q8H IV Last administered on 06/13/17 17:23; Admin Dose 125 MLS/HR; Start 06/12 at 14:00 Simethicone (Mylicon) 80 mg Q6H PRN PO DISTENSION/GAS/BLOATING Last administered on 06/12/17 22:20; Admin Dose 80 MG; Start 06/12/17 at 20:30 CHAPARRO ELIZALDE FINGERPRINT TECHNICIAN Jun 13, 2017 20:07
[2017-06-13 20:27] VITALS: BP 121/73; RESP 16
[2017-06-14] MEDS: ACCU-CHEK XX SCH (02:00)
[2017-06-14 02:19] VITALS: BP 109/71; RESP 16
[2017-06-14] MEDS: 1/2 NS + KCL 20 MEQ 1,000 ML IV SCH ×3 (03:24→23:21)
[2017-06-14] MEDS: PANTOPRAZOLE 40 MG INJ IV SCH (05:13)
[2017-06-14] MEDS: PIPER-TAZO 3.375 GM IV (PMX) 100 ML IVPB SCH ×3 (05:13→21:23)
[2017-06-14 05:41] LABS: ABNORMAL IP MESSAGE 1; BASOPHILS % 0.5 % (0.0-2.0); EOSINOPHILS # 0.1 10^3/ul (0.0-0.5); EOSINOPHILS % 1.9 % (0.0-7.0); HEMATOCRIT 28.8 % (37.0-47.0); HEMOGLOBIN 9.3 g/dl (12.0-16.0); LYMPHOCYTES # 1.7 10^3/ul (0.8-2.9); LYMPHOCYTES % 41.1 % (15.0-51.0); MEAN CORPUSCULAR HEMOGLOBIN 30.1 pg (29.0-33.0); MEAN CORPUSCULAR HGB CONC 32.3 g/dl (32.0-37.0); MEAN CORPUSCULAR VOLUME 93.2 fl (82.0-101.0); MEAN PLATELET VOLUME 11.6 fl (7.4-10.4); MONOCYTE # 0.3 10^3/ul (0.3-0.9); MONOCYTES % 6.9 % (0.0-11.0); NEUTROPHILS % 48.2 % (39.0-77.0); RED BLOOD COUNT 3.09 10^6/ul (4.20-5.40); RED CELL DISTRIBUTION WIDTH 15.7 % (11.5-14.5); WHITE BLOOD COUNT 4.2 10^3/ul (4.8-10.8)
[2017-06-14 05:49] LABS: PLATELET COUNT 65 10^3/UL (140-415); POSITIVE DIFF @See below
[2017-06-14 06:16] LABS: CALCIUM 8.6 mg/dl (8.4-10.2); CREATININE 0.68 mg/dl (0.44-1.00); POTASSIUM 3.7 mmol/L (3.5-5.1)
[2017-06-14] MEDS: INSULIN ASPART [NOVOLOG] 3 ML PEN SC SCH ×4 (07:54→20:15)
[2017-06-14 08:02] VITALS: BP 116/71; RESP 19
[2017-06-14] MEDS: TAMSULOSIN (SR) 0.4 MG CAP PO SCH ×2 (08:24→20:14)
[2017-06-14] MEDS ORDERED: GLUCAGON 1 MG INJ IM PRN (10:00)
[2017-06-14] MEDS ORDERED: GLUCOSE GEL 15 GRAM TUBE PO PRN ×2 (10:00)
[2017-06-14] MEDS ORDERED: GLUCOSE GEL 15 GRAM TUBE BUCCAL PRN (10:00)
[2017-06-14] MEDS ORDERED: DEXTROSE 50% 50 ML SYRINGE IV PRN ×2 (10:00)
[2017-06-14 14:00] VITALS: BP 111/73; RESP 17
--- NOTE | 2017-06-14 15:47 | CONS ---
Date/Time of Note Date/Time of Note DATE: 06/14/17 TIME: 15:38 Assessment/Plan Assessment/Plan Chief Complaint/Hosp Course ID PROGRESS NOTE 24H SUMMARY CURRENT ABX: ZOSYN * No fevers, VSS, A/A/O -> she still has right flank pain + suprabubic pain worse with movement, improves with laying on left side. * CT @ [facility] revealed obstructive stone which was not seen here [facility] on renal US ==> ?QUERY passed stone? * I have requested results from Urine Cx form 06/09-06/10 from [facility] to be faxed. * Microbiology: Blood cultures remain negative urine culture preliminary negative Physical examination: Well-developed middle-aged woman who is alert in no distress. Head atraumatic normocephalic sclera nonicteric. Neck supple chest rise symmetrical. Breath sounds clear. Heart: S1-S2. Abdomen distended, soft abdominal hernia present. Extremities without cyanosis edema. ID ASSESSMENT 51 yo Obese F admit with: 1. Systemic inflammatory response syndrome with fevers, leukocytosis 2. Acute pyelonephritis 3. Obstructive uropathy with a CT scan from another facility revealed hydroureteral ureteronephrosis with a 5.4 mm calculus in the left ureterovesicular junction * [facility] renal US: There is moderate bilateral hydronephrosis with no obstructing lesion visualized. 4. Diabetes 5. Bilateral Flank Pain Improved ID RECOMMENDATIONS/Plan Plan: Continue Zosyn * -> she still has right flank pain + suprabubic pain worse with movement, improves with laying on left side. * CT @ [facility] revealed obstructive stone which was not seen here [facility] on renal US ==> ?QUERY passed stone? * I have requested results from Urine Cx form 06/09-06/10 from [facility] to be faxed. . Problems: Consultation Date/Type/Reason Admit Date/Time Jun 10, 2017 at 05:49 Initial Consult Date 06/10/17 Type of Consultation: ID Exam/Review of Systems Vital Signs Vitals Vital Signs Date Time Temp Pulse Resp B/P Pulse Ox O2 Delivery O2 Flow Rate FiO2 06/14/17 14:00 98.7 85 17 111/73 97 Intake and Output 06/13/17 06/13/17 06/14/17 15:00 23:00 07:00 Intake Total 100 ml 3650 ml 1997.5 ml Output Total 2320 ml Balance 100 ml 1330 ml 1997.5 ml Results Result Diagram: 06/14/17 0444 06/14/17 0443 Results 24 hrs Laboratory Tests Test 06/13/17 17:25 06/13/17 20:29 06/14/17 04:43 06/14/17 04:44 Bedside Glucose 147 166 Sodium Level 145 H Potassium Level 3.7 Chloride Level 108 Carbon Dioxide Level 23 Anion Gap 18 H Blood Urea Nitrogen 7 Creatinine 0.68 Glucose Level 108 Calcium Level 8.6 White Blood Count 4.2 #L Red Blood Count 3.09 L Hemoglobin 9.3 L Hematocrit 28.8 L Mean Corpuscular Volume 93.2 Mean Corpuscular Hemoglobin 30.1 Mean Corpuscular Hemoglobin Concent 32.3 Red Cell Distribution Width 15.7 H Platelet Count 65 #L Mean Platelet Volume 11.6 H Neutrophils % 48.2 Lymphocytes % 41.1 Monocytes % 6.9 Eosinophils % 1.9 Basophils % 0.5 Nucleated Red Blood Cells % 0.0 Neutrophils # 2.0 Lymphocytes # 1.7 Monocytes # 0.3 Eosinophils # 0.1 Basophils # 0.0 Nucleated Red Blood Cells # 0.0 Test 06/14/17 07:51 06/14/17 11:53 Bedside Glucose 99 148 Medications Medications Current Medications Ondansetron HCl (Zofran Inj) 4 mg Q6H PRN IV NAUSEA AND/OR VOMITING; Start at 09:30 Acetaminophen (Tylenol Tab) 650 mg Q6H PRN PO PAIN LEVEL 1-3 OR FEVER Last administered on 06/12/17t 20:37; Admin Dose 650 MG; Start 06/10/17 at 09:30 Acetaminophen (Tylenol Supp) 650 mg Q6H PRN [place] PAIN LEVEL 1-3 OR FEVER; Start 06/10/17 at 09:30 Docusate Sodium (Colace) 100 mg Q12H PRN PO CONSTIPATION; Start 06/10/17 at 09: 30 Magnesium Hydroxide (Milk Of Mag) 30 ml DAILY PRN PO CONSTIPATION; Start at 09:30 Bisacodyl (Dulcolax Supp) 10 mg DAILY PRN [place] CONSTIPATION; Start 06/10/17 at 09 :30 Pantoprazole (Protonix Iv) 40 mg DAILY@06 IV Last administered on 06/14/17 05: 13; Admin Dose 40 MG; Start 06/11/17 at 06:00 Diagnostic Test (Pha) (Accu-Chek) 1 ea 02 XX ; Start 06/11/17 at 02:00 Tramadol HCl (Ultram) 50 mg Q6H PRN PO pain Last administered on 06/10/17 15: 13; Admin Dose 50 MG; Start 06/10/17 at 10:30 Tamsulosin HCl 0.4 mg 0.4 mg BID PO Last administered on 06/14/17 08:24; Admin Dose 0.4 MG; Start 06/11/17 at 21:00 Piperacillin Sod/ Tazobactam Sod 100 ml @ 200 mls/hr Q8 IVPB Last administered on 06/14/17 13:46; Admin Dose 200 MLS/HR; Start 06/12/17 at 14:00 Potassium Chloride/Sodium Chloride (1/2 NS + KCl 20 Meq) 1,000 ml @ 125 mls/hr Q8H IV Last administered on 06/14/17 13:46; Admin Dose 125 MLS/HR; Start 06/12 at 14:00 Simethicone (Mylicon) 80 mg Q6H PRN PO DISTENSION/GAS/BLOATING Last administered on 06/12/17 22:20; Admin Dose 80 MG; Start 06/12/17 at 20:30 Miscellaneous Information 1 ea NOTE XX ; Start 06/14/17 at 10:00 Glucose (Glutose) 15 gm Q15M PRN PO DECREASED GLUCOSE; Start 06/14/17 at 10:00 Glucose (Glutose) 22.5 gm Q15M PRN PO DECREASED GLUCOSE; Start 06/14/17 at 10: 00 Dextrose (D50w Syringe) 25 ml Q15M PRN IV DECREASED GLUCOSE; Start 06/14/17 at 10:00 Dextrose (D50w Syringe) 50 ml Q15M PRN IV DECREASED GLUCOSE; Start 06/14/17 at 10:00 Glucagon (Glucagen) 1 mg Q15M PRN IM DECREASED GLUCOSE; Start 06/14/17 at 10:00 Glucose (Glutose) 15 gm Q15M PRN BUCCAL DECREASED GLUCOSE; Start 06/14/17 at 10 :00 CHAPARRO ELIZALDE NP Jun 14, 2017 15:47
--- NOTE | 2017-06-14 16:00 | PN ---
Date/Time of Note Date/Time of Note DATE: 06/14/17 TIME: 15:59 Assessment/Plan VTE Prophylaxis VTE Prophylaxis Intervention: contraindicated Lines/Catheters IV Catheter Type (from [facility], [place]): Peripheral IV Assessment/Plan Chief Complaint/Hosp Course 1. Sepsis secondary to bilateral pyelonephritis. Cultures negative. No evidence of septic shock. Continue antimicrobials as per infectious diseases. 2. Bilateral hydronephrosis. No evidence of obstructing lesions renal ultrasound. Continue IV hydration. Continue antibiotics. Patient's CT scan from outside facility showed a 5 x 4 mm calculus in the left ureterovesical junction. Will obtain urology consult since the patient continues to have symptoms. 3. Type 2 diabetes mellitus. Hemoglobin A1c 7.2. Continue sliding scale insulin. 4. Normocytic, normochromic anemia. Will obtain iron panel. Monitor H&H closely. 5. Thrombocytopenia. Etiology unclear. Will monitor for any bleeding. 6. Radiographic appearance suggesting cirrhosis of liver. Patient denied any history of alcohol abuse. The patient denies any history of hepatitis. Obtain a serum ammonia level. Will obtain alpha-fetoprotein. 7. Fluids, electrolytes, and nutrition. Carbohydrate controlled diet. 8. DVT prophylaxis. Contraindicated. 9. Gastrointestinal prophylaxis. Proton pump inhibitors. 10. Plan. Continue antimicrobials. Obtain urology consultation. Case discussed with Dr. Adam. Problems: Subjective 24 Hr Interval Summary Free Text/Dictation Complains of lower abdominal pain and dysuria. Denies any hematuria. Exam/Review of Systems Vital Signs Vitals Vital Signs Date Time Temp Pulse Resp B/P Pulse Ox O2 Delivery O2 Flow Rate FiO2 06/14/17 14:00 98.7 85 17 111/73 97 Intake and Output 06/13/17 06/13/17 06/14/17 15:00 23:00 07:00 Intake Total 100 ml 3650 ml 1997.5 ml Output Total 2320 ml Balance 100 ml 1330 ml 1997.5 ml Exam General: Adequately build 51 year-old female lying in bed in no apparent distress. HEENT: Normocephalic, atraumatic. Eyes: Anicteric sclerae, conjunctivae clear. ENT: Nasal septum midline, oral mucosa moist. Neck supple, no JVD noticed. Respiratory: Bilaterally clear breath sounds. No use of accessory muscles of respiration. No adventitious breath sounds. Cardiovascular: S1, S2 heard. No murmurs or gallops. Abdomen: Soft and distended. Bowel sounds positive in all 4 quadrants. Suprapubic tenderness. Caput medusae. Umbilical hernia (reducible). Midline surgical scar. Genitourinary: Deferred. Extremities: No cyanosis, no clubbing. Trace B/L LE edema. Peripheral pulses palpable. Neurologic: Cranial nerves II through XII grossly intact. The patient is awake, alert, and oriented. Skin: Normal skin turgor. No skin rashes. Results Result Diagram: 06/14/17 0444 06/14/17 0443 Results 24 hrs Laboratory Tests Test 06/13/17 17:25 06/13/17 20:29 06/14/17 04:43 06/14/17 04:44 Bedside Glucose 147 166 Sodium Level 145 H Potassium Level 3.7 Chloride Level 108 Carbon Dioxide Level 23 Anion Gap 18 H Blood Urea Nitrogen 7 Creatinine 0.68 Glucose Level 108 Calcium Level 8.6 White Blood Count 4.2 #L Red Blood Count 3.09 L Hemoglobin 9.3 L Hematocrit 28.8 L Mean Corpuscular Volume 93.2 Mean Corpuscular Hemoglobin 30.1 Mean Corpuscular Hemoglobin Concent 32.3 Red Cell Distribution Width 15.7 H Platelet Count 65 #L Mean Platelet Volume 11.6 H Neutrophils % 48.2 Lymphocytes % 41.1 Monocytes % 6.9 Eosinophils % 1.9 Basophils % 0.5 Nucleated Red Blood Cells % 0.0 Neutrophils # 2.0 Lymphocytes # 1.7 Monocytes # 0.3 Eosinophils # 0.1 Basophils # 0.0 Nucleated Red Blood Cells # 0.0 Test 06/14/17 07:51 06/14/17 11:53 Bedside Glucose 99 148 Medications Medications Current Medications Ondansetron HCl (Zofran Inj) 4 mg Q6H PRN IV NAUSEA AND/OR VOMITING; Start at 09:30 Acetaminophen (Tylenol Tab) 650 mg Q6H PRN PO PAIN LEVEL 1-3 OR FEVER Last administered on 06/12/17t 20:37; Admin Dose 650 MG; Start 06/10/17 at 09:30 Acetaminophen (Tylenol Supp) 650 mg Q6H PRN [place] PAIN LEVEL 1-3 OR FEVER; Start 06/10/17 at 09:30 Docusate Sodium (Colace) 100 mg Q12H PRN PO CONSTIPATION; Start 06/10/17 at 09: 30 Magnesium Hydroxide (Milk Of Mag) 30 ml DAILY PRN PO CONSTIPATION; Start at 09:30 Bisacodyl (Dulcolax Supp) 10 mg DAILY PRN [place] CONSTIPATION; Start 06/10/17 at 09 :30 Pantoprazole (Protonix Iv) 40 mg DAILY@06 IV Last administered on 06/14/17 05: 13; Admin Dose 40 MG; Start 06/11/17 at 06:00 Diagnostic Test (Pha) (Accu-Chek) 1 ea 02 XX ; Start 06/11/17 at 02:00 Tramadol HCl (Ultram) 50 mg Q6H PRN PO pain Last administered on 06/10/17 15: 13; Admin Dose 50 MG; Start 06/10/17 at 10:30 Tamsulosin HCl 0.4 mg 0.4 mg BID PO Last administered on 06/14/17 08:24; Admin Dose 0.4 MG; Start 06/11/17 at 21:00 Piperacillin Sod/ Tazobactam Sod 100 ml @ 200 mls/hr Q8 IVPB Last administered on 06/14/17 13:46; Admin Dose 200 MLS/HR; Start 06/12/17 at 14:00 Potassium Chloride/Sodium Chloride (1/2 NS + KCl 20 Meq) 1,000 ml @ 125 mls/hr Q8H IV Last administered on 06/14/17 13:46; Admin Dose 125 MLS/HR; Start 06/12 at 14:00 Simethicone (Mylicon) 80 mg Q6H PRN PO DISTENSION/GAS/BLOATING Last administered on 06/12/17 22:20; Admin Dose 80 MG; Start 06/12/17 at 20:30 Miscellaneous Information 1 ea NOTE XX ; Start 06/14/17 at 10:00 Glucose (Glutose) 15 gm Q15M PRN PO DECREASED GLUCOSE; Start 06/14/17 at 10:00 Glucose (Glutose) 22.5 gm Q15M PRN PO DECREASED GLUCOSE; Start 06/14/17 at 10: 00 Dextrose (D50w Syringe) 25 ml Q15M PRN IV DECREASED GLUCOSE; Start 06/14/17 at 10:00 Dextrose (D50w Syringe) 50 ml Q15M PRN IV DECREASED GLUCOSE; Start 06/14/17 at 10:00 Glucagon (Glucagen) 1 mg Q15M PRN IM DECREASED GLUCOSE; Start 06/14/17 at 10:00 Glucose (Glutose) 15 gm Q15M PRN BUCCAL DECREASED GLUCOSE; Start 06/14/17 at 10 :00 LANCE KRAUS NP Jun 14, 2017 16:00
--- NOTE | 2017-06-14 19:48 | CONS ---
Date/Time of Note Date/Time of Note DATE: 06/14/17 TIME: 19:26 Assessment/Plan Assessment/Plan Chief Complaint/Hosp Course History of distal left ureteral stone at the ureterovesical junction measuring 5 x 4 mm. We do not know whether she passed a stone or not. She still has pain and that could be because of the stone itself or because of infection or because of the genital prolapse. I will order a KUB and repeat the CT scan of the abdomen and pelvis without IV contrast to see if she still have the stone and whether she passed it or not. Problems: Consultation Date/Type/Reason Admit Date/Time Jun 10, 2017 at 05:49 Date of Consultation: Jun 14, 2017 Type of Consultation: Urology Reason for Consultation Left ureterovesical junction stone measuring 5 x 4 mm and the patient continues to have bilateral flank pain. Referring Provider: LANCE KRAUS NP Hx of Present Illness 51-year-old female presented initially to the emergency room at [facility] because of abdominal pain. she underwent a CT scan of the abdomen and pelvis and that showed a stone measuring 5 x 4 mm at the left ureterovesical junction. The patient was transferred to [facility] because of her insurance. The patient has been treated however she continues to have pain and symptoms therefore a urological consultation was requested. Patient herself denies any prior history of kidney stones. The CT scan done at [place] showed 1-mild left hydroureteronephrosis and that is traceable to a 5 x 4 mm calculus at the left ureterovesical junction 2-mild perinephric inflammatory stranding of the left kidney is present with additional tiny nonobstructing left lower pole renal calculi 3-interval development of nodular contour to the liver and heterogeneous hepatic attenuation concerning for cirrhosis with hepatomegaly and portal hypertension 4-enlarging splenomegaly from a prior 15.2 cm estimation to her current 18.5 cm measurement 5-stable left adrenal gland adenoma 6-enlarging fat-containing left para central ventral hernia now estimated at 7.7 x 6.5 cm, previously 6.1 cm 7-stable fat-containing inguinal hernia is slightly greater on the left 8-diffuse colonic diverticulosis without diverticulitis 9-Jerry myomata's uterus with decreased size of bilateral ovarian adnexal cysts The patient had a renal ultrasound here and the impression was: 1. Moderate bilateral hydronephrosis. 2. Otherwise normal renal ultrasound. RPTAT: QQ .Guillermo Fuentes MD, Date Time Electronically viewed and signed by .Guillermo Fuentes MD, on 06/13/2017 15:59 d the impression was: Constitutional: no complaints Eyes: no complaints ENT: no complaints Respiratory: no complaints Cardiovascular: no complaints Gastrointestinal: No nausea, No vomiting Genitourinary: flank pain (Both flanks), other (Patient is a 4 para 4 3 normal deliveries and 1 ) Musculoskeletal: no complaints Skin: no complaints Neurologic: no complaints Endocrine: other (Patient has diabetes type 2) Psychological: nl mood/affect, no complaints Past Medical History Medical History: diabetes, high cholesterol Past Surgical History Past Surgical Hx: cholecystectomy, other () Family History Significant Family History: no pertinent family hx Social History Alcohol Use: none Smoking Status: Never smoker Exam/Review of Systems Vital Signs Vitals Vital Signs Date Time Temp Pulse Resp B/P Pulse Ox O2 Delivery O2 Flow Rate FiO2 06/14/17 14:00 98.7 85 17 111/73 97 Intake and Output 06/13/17 06/13/17 06/14/17 15:00 23:00 07:00 Intake Total 100 ml 3650 ml 1997.5 ml Output Total 2320 ml Balance 100 ml 1330 ml 1997.5 ml Exam Constitutional: alert, oriented Psych: no complaints Head: normocephalic Eyes: nl conjunctiva ENMT: nl external ears & nose Neck: non-tender, supple Respiratory: normal air movement Cardiovascular: No edema Gastrointestinal: distended, other (Umbilical and paraumbilical hernia), surgical scars Genitourinary - Female: CVA tenderness (Both sides), other (Complete genital prolapse with the cervix and the uterus outside of the vagina. I reduced them and push them back in however most likely when she stands up it will prolapse again) Musculoskeletal: nl extremities to inspection Extremities: No calf tenderness, No edema Skin: nl turgor Results Result Diagram: 06/14/17 0444 06/14/17 0443 Results 24 hrs Laboratory Tests Test 06/13/17 20:29 06/14/17 04:43 06/14/17 04:44 06/14/17 07:51 Bedside Glucose 166 99 Sodium Level 145 H Potassium Level 3.7 Chloride Level 108 Carbon Dioxide Level 23 Anion Gap 18 H Blood Urea Nitrogen 7 Creatinine 0.68 Glucose Level 108 Calcium Level 8.6 White Blood Count 4.2 #L Red Blood Count 3.09 L Hemoglobin 9.3 L Hematocrit 28.8 L Mean Corpuscular Volume 93.2 Mean Corpuscular Hemoglobin 30.1 Mean Corpuscular Hemoglobin Concent 32.3 Red Cell Distribution Width 15.7 H Platelet Count 65 #L Mean Platelet Volume 11.6 H Neutrophils % 48.2 Lymphocytes % 41.1 Monocytes % 6.9 Eosinophils % 1.9 Basophils % 0.5 Nucleated Red Blood Cells % 0.0 Neutrophils # 2.0 Lymphocytes # 1.7 Monocytes # 0.3 Eosinophils # 0.1 Basophils # 0.0 Nucleated Red Blood Cells # 0.0 Test 06/14/17 11:53 06/14/17 17:14 Bedside Glucose 148 86 Medications Medications Current Medications Ondansetron HCl (Zofran Inj) 4 mg Q6H PRN IV NAUSEA AND/OR VOMITING; Start at 09:30 Acetaminophen (Tylenol Tab) 650 mg Q6H PRN PO PAIN LEVEL 1-3 OR FEVER Last administered on 06/12/17 20:37; Admin Dose 650 MG; Start 06/10/17 at 09:30 Acetaminophen (Tylenol Supp) 650 mg Q6H PRN [place] PAIN LEVEL 1-3 OR FEVER; Start 06/10/17 at 09:30 Docusate Sodium (Colace) 100 mg Q12H PRN PO CONSTIPATION; Start 06/10/17 at 09: 30 Magnesium Hydroxide (Milk Of Mag) 30 ml DAILY PRN PO CONSTIPATION; Start at 09:30 Bisacodyl (Dulcolax Supp) 10 mg DAILY PRN [place] CONSTIPATION; Start 06/10/17 at 09 :30 Diagnostic Test (Pha) (Accu-Chek) 1 ea 02 XX ; Start 06/11/17 at 02:00 Tramadol HCl (Ultram) 50 mg Q6H PRN PO pain Last administered on 06/10/17 15: 13; Admin Dose 50 MG; Start 06/10/17 at 10:30 Tamsulosin HCl 0.4 mg 0.4 mg BID PO Last administered on 06/14/17 08:24; Admin Dose 0.4 MG; Start 06/11/17 at 21:00 Piperacillin Sod/ Tazobactam Sod 100 ml @ 200 mls/hr Q8 IVPB Last administered on 06/14/17 13:46; Admin Dose 200 MLS/HR; Start 06/12/17 at 14:00 Potassium Chloride/Sodium Chloride (1/2 NS + KCl 20 Meq) 1,000 ml @ 125 mls/hr Q8H IV Last administered on 06/14/17 13:46; Admin Dose 125 MLS/HR; Start 06/12 at 14:00 Simethicone (Mylicon) 80 mg Q6H PRN PO DISTENSION/GAS/BLOATING Last administered on 06/12/17 22:20; Admin Dose 80 MG; Start 06/12/17 at 20:30 Miscellaneous Information 1 ea NOTE XX ; Start 06/14/17 at 10:00 Glucose (Glutose) 15 gm Q15M PRN PO DECREASED GLUCOSE; Start 06/14/17 at 10:00 Glucose (Glutose) 22.5 gm Q15M PRN PO DECREASED GLUCOSE; Start 06/14/17 at 10: 00 Dextrose (D50w Syringe) 25 ml Q15M PRN IV DECREASED GLUCOSE; Start 06/14/17 at 10:00 Dextrose (D50w Syringe) 50 ml Q15M PRN IV DECREASED GLUCOSE; Start 06/14/17 at 10:00 Glucagon (Glucagen) 1 mg Q15M PRN IM DECREASED GLUCOSE; Start 06/14/17 at 10:00 Glucose (Glutose) 15 gm Q15M PRN BUCCAL DECREASED GLUCOSE; Start 06/14/17 at 10 :00 Pantoprazole (Protonix Tab) 40 mg DAILY@06 PO ; Start 06/15/17 at 06:00 PIERO BAIG MD Jun 14, 2017 19:37
[2017-06-14 20:24] VITALS: BP 128/90; RESP 18
[2017-06-15] MEDS: ACCU-CHEK XX SCH (02:00)
[2017-06-15 02:46] VITALS: BP 114/67; RESP 18
--- NOTE | 2017-06-15 03:22 | RADRPT ---
PROCEDURE: CT of the abdomen and pelvis without contrast CLINICAL INDICATION: Distal left ureteral stone, genital prolapse. . Bilateral hydronephrosis se en on ultrasound. TECHNIQUE: Spiral CT images through the abdomen and pelvis without the use of contrast. The admin istered radiation dose is CTDI 14.92 and DLP 840.24. One or more of the following dose reduction te chniques were used: automated exposure control, adjustment of the mA and/or kV according to patient size, or use of iterative reconstruction technique. COMPARISON: Ultrasound from 06/13 FINDINGS: Lack of oral and intravenous contrast somewhat limits evaluation. Slight dependent atelectasis of the lung bases is seen. No pleural effusion is seen. Calcified left lower lobe granuloma. Mild ca rdiomegaly. The liver is micronodular in contour with slight prominence of the left lobe and caudate. The appea raegan suggests cirrhosis. The spleen is enlarged, measuring 17.7 cm in length, also consistent with cirrhosis.. There is marked thinning of the anterior abdominal wall with multiple small abdominal wall defects, several with minimal fat-containing hernias. There is a moderately large focal fat-co ntaining anterior abdominal wall hernia with some calcifications of fat within. Moderate debris is seen in the stomach.. The gallbladder is contracted or surgically absent. There is left greater th an right hydronephrosis and hydroureter which appears to be caused by fairly prominent bladder prola pse. The ureterovesical junctions are located inferiorly within the area of prolapse. No right holden al stones are seen and no stones are seen in the ureters or urinary bladder. There are a few tiny n onobstructing stones in the left intrarenal collecting system. The adrenals and pancreas are unremarkable in appearance. There are bilateral inguinal hernias containing fat and fluid. The uter us may be slightly prolapsed as well. No definite adnexal masses. No definite bladder masses. The re is colonic diverticulosis without evidence of diverticulitis. There is no evidence for bowel obs truction, free air, or abscess. The appendix is normal in appearance. There is skin thickening of the anterior abdominal wall and there is mild stranding and fluid along the anterior abdominal wall. Mild edema of the subcutaneous fat of the back is also seen. Degenerative change of the spine is seen.. IMPRESSION: Prominent bladder prolapse which appears to be causing bilateral hydronephrosis and hydroureter. Fe w tiny nonobstructing left renal stones, incidental. Probable mild uterine prolapse. Probable cirrhosis with splenomegaly also seen.. Thinning of the antrum abdominal wall with multiple small defects and fat-containing hernias and lar jeanmarie fat-containing hernia also seen with some calcifications within. Bilateral inguinal hernias containing fat and fluid. RPTAT: HLBE Luz Maria Ricci, Physician Date Time Electronically viewed and signed by Luz Maria Ricci, Physician on 06/15/2017 03:22 LE/
[2017-06-15] MEDS: PANTOPRAZOLE (EC) 40 MG TAB PO SCH (05:38)
[2017-06-15] MEDS: PIPER-TAZO 3.375 GM IV (PMX) 100 ML IVPB SCH ×3 (05:38→22:00)
[2017-06-15 05:50] LABS: ABNORMAL IP MESSAGE 1; BASOPHILS % 0.4 % (0.0-2.0); EOSINOPHILS # 0.1 10^3/ul (0.0-0.5); EOSINOPHILS % 2.1 % (0.0-7.0); HEMATOCRIT 27.2 % (37.0-47.0); HEMOGLOBIN 8.7 g/dl (12.0-16.0); LYMPHOCYTES # 1.7 10^3/ul (0.8-2.9); LYMPHOCYTES % 36.3 % (15.0-51.0); MEAN CORPUSCULAR VOLUME 93.8 fl (82.0-101.0); MEAN PLATELET VOLUME 12.1 fl (7.4-10.4); MONOCYTE # 0.3 10^3/ul (0.3-0.9); MONOCYTES % 5.8 % (0.0-11.0); NEUTROPHIL # 2.6 10^3/ul (1.6-7.5); NEUTROPHILS % 54.1 % (39.0-77.0); PLATELET COUNT 79 10^3/UL (140-415); RED CELL DISTRIBUTION WIDTH 15.5 % (11.5-14.5); WHITE BLOOD COUNT 4.8 10^3/ul (4.8-10.8)
[2017-06-15] MEDS: 1/2 NS + KCL 20 MEQ 1,000 ML IV SCH ×3 (06:00→20:44)
[2017-06-15 06:12] LABS: CALCIUM 8.7 mg/dl (8.4-10.2); CREATININE 0.63 mg/dl (0.44-1.00); POTASSIUM 3.8 mmol/L (3.5-5.1)
[2017-06-15 06:20] LABS: IRON 47 ug/dl (35-150); POSITIVE DIFF @See below
[2017-06-15 06:21] LABS: MAGNESIUM 1.4 mg/dl (1.7-2.5); PHOSPHORUS 4.6 mg/dl (2.5-4.9)
[2017-06-15 07:49] LABS: ALBUMIN 3.3 g/dl (3.3-4.9); BILIRUBIN,INDIRECT 0.2 mg/dl (0-1.1); BILIRUBIN,TOTAL 0.2 mg/dl (0.2-1.3); TOTAL PROTEIN 7.3 g/dl (6.1-8.1)
[2017-06-15 08:00] VITALS: BP 110/64; RESP 20
[2017-06-15] MEDS: INSULIN ASPART [NOVOLOG] 3 ML PEN SC SCH ×4 (08:00→20:52)
[2017-06-15] MEDS: TAMSULOSIN (SR) 0.4 MG CAP PO SCH ×2 (08:12→20:47)
[2017-06-15 09:38] LABS: TOTAL IRON BINDING CAPACITY 279 ug/dl (241-421)
--- NOTE | 2017-06-15 09:57 | RADRPT ---
PROCEDURE: XR Abdomen. CLINICAL INDICATION: Distal left ureteral stone TECHNIQUE: AP abdomen x-ray. COMPARISON: The CT abdomen/pelvis 06/14/2017 FINDINGS: The bowel gas pattern is normal. There is no evidence of obstruction. There are no abnormal calcific ations overlying the urinary tracts. There are mild degenerative changes of the visualized spine. IMPRESSION: Unremarkable abdomen radiograph. RPTAT: AA Physician Joshua Date Time Electronically viewed and signed by Richa Wood Physician on 06/15/2017 09:56 BALAJI/
[2017-06-15] MEDS ORDERED: MAGNESIUM SULFATE 3 GM in SOD CHLORIDE 0.9% 100 ML IVPB ONE (12:00)
--- NOTE | 2017-06-15 12:41 | PN ---
Date/Time of Note Date/Time of Note DATE: 06/15/17 TIME: 12:38 Assessment/Plan VTE Prophylaxis VTE Prophylaxis Intervention: contraindicated Lines/Catheters IV [facility] Type (from [facility] Peripheral IV Assessment/Plan Chief Complaint/Hosp Course 1. Sepsis secondary to bilateral pyelonephritis. Cultures negative. No evidence of septic shock. Continue antimicrobials as per infectious diseases. 2. Bilateral hydronephrosis. No evidence of obstructing lesions renal ultrasound. Continue IV hydration. Continue antibiotics. Patient's CT scan from outside facility showed a 5 x 4 mm calculus in the left ureterovesical junction. Will obtain urology consult since the patient continues to have symptoms. 3. Type 2 diabetes mellitus. Hemoglobin A1c 7.2. Continue sliding scale insulin. 4. Normocytic, normochromic anemia. Will obtain iron panel. Monitor H&H closely. 5. Thrombocytopenia. Etiology unclear. Will monitor for any bleeding. 6. Radiographic appearance suggesting cirrhosis of liver. Patient denied any history of alcohol abuse. The patient denies any history of hepatitis. Serum ammonia level elevated. Obtain gastroenterology consult. 7. Fluids, electrolytes, and nutrition. Carbohydrate controlled diet. 8. DVT prophylaxis. Contraindicated. 9. Gastrointestinal prophylaxis. Proton pump inhibitors. 10. Plan. Continue antimicrobials. Obtain gastroenterology consultation. Replete magnesium. Case discussed with Dr. Adam. The plan of care was explained to the patient along with the finding of possible cirrhosis with the help of a atmospheric drier tender. Problems: Subjective 24 Hr Interval Summary Free Text/Dictation Patient remains afebrile. Exam/Review of Systems Vital Signs Vitals Vital Signs Date Time Temp Pulse Resp B/P Pulse Ox O2 Delivery O2 Flow Rate FiO2 06/15/17 08:00 98.6 86 20 110/64 96 Intake and Output 06/14/17 06/14/17 06/15/17 15:00 23:00 07:00 Intake Total 912.5 ml 1135 ml 2275 ml Balance 912.5 ml 1135 ml 2275 ml Exam General: Adequately build 51 year-old female lying in bed in no apparent distress. HEENT: Normocephalic, atraumatic. Eyes: Anicteric sclerae, conjunctivae clear. ENT: Nasal septum midline, oral mucosa moist. Neck supple, no JVD noticed. Respiratory: Bilaterally clear breath sounds. No use of accessory muscles of respiration. No adventitious breath sounds. Cardiovascular: S1, S2 heard. No murmurs or gallops. Abdomen: Soft and distended. Bowel sounds positive in all 4 quadrants. Suprapubic tenderness. Caput medusae. Umbilical hernia (reducible). Midline surgical scar. Genitourinary: Deferred. Extremities: No cyanosis, no clubbing. Trace B/L LE edema. Peripheral pulses palpable. Neurologic: Cranial nerves II through XII grossly intact. The patient is awake, alert, and oriented. Skin: Normal skin turgor. No skin rashes. Results Result Diagram: 06/15/17 0510 06/15/17 0510 Results 24 hrs Laboratory Tests Test 06/14/17 17:14 06/14/17 20:12 06/15/17 01:46 06/15/17 05:10 Bedside Glucose 86 206 132 White Blood Count 4.8 Red Blood Count 2.90 L Hemoglobin 8.7 L Hematocrit 27.2 L Mean Corpuscular Volume 93.8 Mean Corpuscular Hemoglobin 30.0 Mean Corpuscular Hemoglobin Concent 32.0 Red Cell Distribution Width 15.5 H Platelet Count 79 #L Mean Platelet Volume 12.1 H Neutrophils % 54.1 Lymphocytes % 36.3 Monocytes % 5.8 Eosinophils % 2.1 Basophils % 0.4 Nucleated Red Blood Cells % 0.0 Neutrophils # 2.6 Lymphocytes # 1.7 Monocytes # 0.3 Eosinophils # 0.1 Basophils # 0.0 Nucleated Red Blood Cells # 0.0 Sodium Level 145 H Potassium Level 3.8 Chloride Level 108 Carbon Dioxide Level 23 Anion Gap 18 H Blood Urea Nitrogen 9 Creatinine 0.63 Glucose Level 130 Calcium Level 8.7 Phosphorus Level 4.6 Magnesium Level 1.4 L Iron Level 47 Total Iron Binding Capacity 279 Percent Iron Saturation 17 L Ferritin Pending Total Bilirubin 0.2 Direct Bilirubin 0.00 Indirect Bilirubin 0.2 Aspartate Amino Transf (AST/SGOT) 36 Alanine Aminotransferase (ALT/SGPT) 25 Alkaline Phosphatase 101 Ammonia 40 H Total Protein 7.3 Albumin 3.3 Test 06/15/17 08:02 06/15/17 12:01 Bedside Glucose 107 105 Medications Medications Current Medications Ondansetron HCl (Zofran Inj) 4 mg Q6H PRN IV NAUSEA AND/OR VOMITING; Start at 09:30 Acetaminophen (Tylenol Tab) 650 mg Q6H PRN PO PAIN LEVEL 1-3 OR FEVER Last administered on 06/12/17 20:37; Admin Dose 650 MG; Start 06/10/17 at 09:30 Acetaminophen (Tylenol Supp) 650 mg Q6H PRN [place] PAIN LEVEL 1-3 OR FEVER; Start 06/10/17 at 09:30 Docusate Sodium (Colace) 100 mg Q12H PRN PO CONSTIPATION; Start 06/10/17 at 09: 30 Magnesium Hydroxide (Milk Of Mag) 30 ml DAILY PRN PO CONSTIPATION; Start at 09:30 Bisacodyl (Dulcolax Supp) 10 mg DAILY PRN [place] CONSTIPATION; Start 06/10/17 at 09 :30 Diagnostic Test (Pha) (Accu-Chek) 1 ea 02 XX ; Start 06/11/17 at 02:00 Tramadol HCl (Ultram) 50 mg Q6H PRN PO pain Last administered on 06/10/17 15: 13; Admin Dose 50 MG; Start 06/10/17 at 10:30 Tamsulosin HCl 0.4 mg 0.4 mg BID PO Last administered on 06/15/17 08:12; Admin Dose 0.4 MG; Start 06/11/17 at 21:00 Piperacillin Sod/ Tazobactam Sod 100 ml @ 200 mls/hr Q8 IVPB Last administered on 06/15/17 05:38; Admin Dose 200 MLS/HR; Start 06/12/17 at 14:00 Potassium Chloride/Sodium Chloride (1/2 NS + KCl 20 Meq) 1,000 ml @ 125 mls/hr Q8H IV Last administered on 06/15/17 08:12; Admin Dose 125 MLS/HR; Start 06/12 at 14:00 Simethicone (Mylicon) 80 mg Q6H PRN PO DISTENSION/GAS/BLOATING Last administered on 06/12/17 22:20; Admin Dose 80 MG; Start 06/12/17 at 20:30 Miscellaneous Information 1 ea NOTE XX ; Start 06/14/17 at 10:00 Glucose (Glutose) 15 gm Q15M PRN PO DECREASED GLUCOSE; Start 06/14/17 at 10:00 Glucose (Glutose) 22.5 gm Q15M PRN PO DECREASED GLUCOSE; Start 06/14/17 at 10: 00 Dextrose (D50w Syringe) 25 ml Q15M PRN IV DECREASED GLUCOSE; Start 06/14/17 at 10:00 Dextrose (D50w Syringe) 50 ml Q15M PRN IV DECREASED GLUCOSE; Start 06/14/17 at 10:00 Glucagon (Glucagen) 1 mg Q15M PRN IM DECREASED GLUCOSE; Start 06/14/17 at 10:00 Glucose (Glutose) 15 gm Q15M PRN BUCCAL DECREASED GLUCOSE; Start 06/14/17 at 10 :00 Pantoprazole 40 mg 40 mg DAILY@06 PO Last administered on 06/15/17t 05:38; Admin Dose 40 MG; Start 06/15/17 at 06:00 Magnesium Sulfate/ Sodium Chloride (Magnesium Sulfate/NS) 106 ml @ 35.333 mls/ hr ONCE ONCE IVPB ; Start 06/15/17 at 12:00; Stop 06/15/17 at 14:59 LANCE KRAUS NP Jun 15, 2017 12:41
[2017-06-15 14:00] VITALS: BP 124/86; RESP 20
--- NOTE | 2017-06-15 14:43 | CONS ---
Date/Time of Note Date/Time of Note DATE: 06/15/17 TIME: 14:32 Assessment/Plan Assessment/Plan Additional Assessment/Plan Assessment * Flank pain bilateral Hydronephrosis Renal stone * sepsis acute pyelonephritis * Diabetes mellitus * Cirrhosis liver by CT scan Plan * Hepatitis serology * Ultrasound of abdomen * wok up for autoimmune problems * Further orders will depend on clinical course Consultation Date/Type/Reason Admit Date/Time Jun 10, 2017 at 05:49 Date of Consultation: Jun 15, 2017 Type of Consultation: Gastroenterology Reason for Consultation Cirrhosis by ct scan Referring Provider: LANCE KRAUS NP Hx of Present Illness 51 year old female past medical history of diabetes mellitus,s/p cholecystectomy ,hyperlipidemia presented at our emergency room complaining of bilateral flank pain ,with associated fever,and nausea but no vomiting .He denies hematemesis, history of travel to foreign country,hematochezia,nor changes of bowel habits.Emergency room course revealed WBC 6.1,Hemoglobin 9.6.platelet 43 total bilirubin 0.2,AST 36,ALT 25,alkaline phosphatase 101 Renal ultrasound Moderate bilateral hydronephrosis.. Otherwise normal renal ultrasound. CT scan of abdomen and Pelvis Prominent bladder prolapse which appears to be causing bilateral hydronephrosis and hydroureter. Few tiny nonobstructing left renal stones, incidental. Probable mild uterine prolapse.Probable cirrhosis with splenomegaly also seen.. Thinning of the antrum abdominal wall with multiple small defects and fat-containing hernias and larger fat-containing hernia also seen with some calcifications within.Bilateral inguinal hernias containing fat and fluid. Patient was started on antibiotics and urology saw the patient.Patient is asymptomatic but will work up patient Constitutional: no complaints Eyes: no complaints ENT: no complaints Respiratory: no complaints Cardiovascular: no complaints Gastrointestinal: No nausea, No vomiting Genitourinary: flank pain (Both flanks), other (Patient is a 4 para 4 3 normal deliveries and 1 ) Musculoskeletal: no complaints Skin: no complaints Neurologic: no complaints Endocrine: other (Patient has diabetes type 2) Lymphatic: no complaints Psychological: no complaints Immunologic: no complaints Past Medical History Medical History: diabetes, high cholesterol Past Surgical History Past Surgical Hx: cholecystectomy, other () Social History Alcohol Use: none Smoking Status: Never smoker Exam/Review of Systems Vital Signs Vitals Vital Signs Date Time Temp Pulse Resp B/P Pulse Ox O2 Delivery O2 Flow Rate FiO2 06/15/17 08:00 98.6 86 20 110/64 96 Intake and Output 06/14/17 06/14/17 06/15/17 15:00 23:00 07:00 Intake Total 912.5 ml 1135 ml 2275 ml Balance 912.5 ml 1135 ml 2275 ml Exam Constitutional: alert, oriented, well developed Psych: nl mood/affect, no complaints Head: atraumatic, normocephalic Eyes: EOMI, PERRL, nl conjunctiva, nl lids, nl sclera ENMT: nl external ears & nose, nl lips & teeth, nl nasal mucosa & septum Neck: non-tender, supple Respiratory: clear to auscultation, normal air movement Cardiovascular: nl pulses, regular rate and rhythm Gastrointestinal: nl liver, spleen, non-tender, soft Musculoskeletal: nl extremities to inspection, nl gait and stance Extremities: normal pulses Neurological: ENGAGEMENT ENGINEER II-XII intact, nl mental status, nl speech, nl strength Skin: nl turgor, No rash or lesions Lymph: nl lymph nodes Results Result Diagram: 06/15/17 0510 06/15/17 0510 Results 24 hrs Laboratory Tests Test 06/14/17 17:14 06/14/17 20:12 06/15/17 01:46 06/15/17 05:10 Bedside Glucose 86 206 132 White Blood Count 4.8 Red Blood Count 2.90 L Hemoglobin 8.7 L Hematocrit 27.2 L Mean Corpuscular Volume 93.8 Mean Corpuscular Hemoglobin 30.0 Mean Corpuscular Hemoglobin Concent 32.0 Red Cell Distribution Width 15.5 H Platelet Count 79 #L Mean Platelet Volume 12.1 H Neutrophils % 54.1 Lymphocytes % 36.3 Monocytes % 5.8 Eosinophils % 2.1 Basophils % 0.4 Nucleated Red Blood Cells % 0.0 Neutrophils # 2.6 Lymphocytes # 1.7 Monocytes # 0.3 Eosinophils # 0.1 Basophils # 0.0 Nucleated Red Blood Cells # 0.0 Sodium Level 145 H Potassium Level 3.8 Chloride Level 108 Carbon Dioxide Level 23 Anion Gap 18 H Blood Urea Nitrogen 9 Creatinine 0.63 Glucose Level 130 Calcium Level 8.7 Phosphorus Level 4.6 Magnesium Level 1.4 L Iron Level 47 Total Iron Binding Capacity 279 Percent Iron Saturation 17 L Ferritin Pending Total Bilirubin 0.2 Direct Bilirubin 0.00 Indirect Bilirubin 0.2 Aspartate Amino Transf (AST/SGOT) 36 Alanine Aminotransferase (ALT/SGPT) 25 Alkaline Phosphatase 101 Ammonia 40 H Total Protein 7.3 Albumin 3.3 Alpha Fetoprotein 3.43 Test 06/15/17 08:02 06/15/17 12:01 Bedside Glucose 107 105 Medications Medications Current Medications Ondansetron HCl (Zofran Inj) 4 mg Q6H PRN IV NAUSEA AND/OR VOMITING; Start at 09:30 Acetaminophen (Tylenol Tab) 650 mg Q6H PRN PO PAIN LEVEL 1-3 OR FEVER Last administered on 06/12/17 20:37; Admin Dose 650 MG; Start 06/10/17 at 09:30 Acetaminophen (Tylenol Supp) 650 mg Q6H PRN [place] PAIN LEVEL 1-3 OR FEVER; Start 06/10/17 at 09:30 Docusate Sodium (Colace) 100 mg Q12H PRN PO CONSTIPATION; Start 06/10/17 at 09: 30 Magnesium Hydroxide (Milk Of Mag) 30 ml DAILY PRN PO CONSTIPATION; Start at 09:30 Bisacodyl (Dulcolax Supp) 10 mg DAILY PRN [place] CONSTIPATION; Start 06/10/17 at 09 :30 Diagnostic Test (Pha) (Accu-Chek) 1 ea 02 XX ; Start 06/11/17 at 02:00 Tramadol HCl (Ultram) 50 mg Q6H PRN PO pain Last administered on 06/10/17 15: 13; Admin Dose 50 MG; Start 06/10/17 at 10:30 Tamsulosin HCl 0.4 mg 0.4 mg BID PO Last administered on 06/15/17 08:12; Admin Dose 0.4 MG; Start 06/11/17 at 21:00 Piperacillin Sod/ Tazobactam Sod 100 ml @ 200 mls/hr Q8 IVPB Last administered on 06/15/17 05:38; Admin Dose 200 MLS/HR; Start 06/12/17 at 14:00 Potassium Chloride/Sodium Chloride (1/2 NS + KCl 20 Meq) 1,000 ml @ 125 mls/hr Q8H IV Last administered on 06/15/17 08:12; Admin Dose 125 MLS/HR; Start 06/12 at 14:00 Simethicone (Mylicon) 80 mg Q6H PRN PO DISTENSION/GAS/BLOATING Last administered on 06/12/17 22:20; Admin Dose 80 MG; Start 06/12/17 at 20:30 Miscellaneous Information 1 ea NOTE XX ; Start 06/14/17 at 10:00 Glucose (Glutose) 15 gm Q15M PRN PO DECREASED GLUCOSE; Start 06/14/17 at 10:00 Glucose (Glutose) 22.5 gm Q15M PRN PO DECREASED GLUCOSE; Start 06/14/17 at 10: 00 Dextrose (D50w Syringe) 25 ml Q15M PRN IV DECREASED GLUCOSE; Start 06/14/17 at 10:00 Dextrose (D50w Syringe) 50 ml Q15M PRN IV DECREASED GLUCOSE; Start 06/14/17 at 10:00 Glucagon (Glucagen) 1 mg Q15M PRN IM DECREASED GLUCOSE; Start 06/14/17 at 10:00 Glucose (Glutose) 15 gm Q15M PRN BUCCAL DECREASED GLUCOSE; Start 06/14/17 at 10 :00 Pantoprazole 40 mg 40 mg DAILY@06 PO Last administered on 06/15/17 05:38; Admin Dose 40 MG; Start 06/15/17 at 06:00 Magnesium Sulfate/ Sodium Chloride (Magnesium Sulfate/NS) 106 ml @ 35.333 mls/ hr ONCE ONCE IVPB Last administered on 06/15/17 12:55; Admin Dose 35.333 MLS/ HR; Start 06/15/17 at 12:00; Stop 06/15/17 at 14:59 ELIANA DONIS MD Jun 15, 2017 14:43
[2017-06-15] MEDS: ACETAMINOPHEN 325 MG TAB PO PRN (18:02)
--- NOTE | 2017-06-15 19:35 | CONS ---
Date/Time of Note Date/Time of Note DATE: 06/15/17 TIME: 19:32 Assessment/Plan Assessment/Plan Chief Complaint/Hosp Course ID PROGRESS NOTE 24H SUMMARY CURRENT ABX: ZOSYN * Clinically the same -- still has pain * Seen by and GI ABD X-ray 06/15: Unremarkable abdomen radiograph. * No fevers, VSS, A/A/O -> she still has right flank pain + suprabubic pain worse with movement, improves with laying on left side. * CT @ [facility] revealed obstructive stone which was not seen here [facility] on renal US ==> ?QUERY passed stone? * I have requested results from Urine Cx form 06/09-06/10 from [facility] to be faxed. * Microbiology: Blood cultures remain negative urine culture preliminary negative Physical examination: Well-developed middle-aged woman who is alert in no distress. Head atraumatic normocephalic sclera nonicteric. Neck supple chest rise symmetrical. Breath sounds clear. Heart: S1-S2. Abdomen distended, soft abdominal hernia present. Extremities without cyanosis edema. ID ASSESSMENT 51 yo Obese F admit with: 1. Systemic inflammatory response syndrome with fevers, leukocytosis 2. Acute pyelonephritis 3. Obstructive uropathy with a CT scan from another facility revealed hydroureteral ureteronephrosis with a 5.4 mm calculus in the left ureterovesicular junction * [facility] renal US: There is moderate bilateral hydronephrosis with no obstructing lesion visualized. 4. Diabetes 5. Bilateral Flank Pain Improved ID RECOMMENDATIONS/Plan Plan: Continue Zosyn * -> she still has right flank pain + suprabubic pain worse with movement, improves with laying on left side. * CT @ [facility] revealed obstructive stone which was not seen here [facility] on renal US ==> ?QUERY passed stone? * I have requested results from Urine Cx form 06/09-06/10 from [facility] to be faxed. . Problems: Consultation Date/Type/Reason Admit Date/Time Jun 10, 2017 at 05:49 Initial Consult Date 06/10/17 Type of Consultation: ID Referring Provider: LANCE KRAUS PROFESSOR OF MUSICOLOGY Exam/Review of Systems Vital Signs Vitals Vital Signs Date Time Temp Pulse Resp B/P Pulse Ox O2 Delivery O2 Flow Rate FiO2 06/15/17 14:00 98.6 76 20 124/86 96 Intake and Output 06/14/17 06/14/17 06/15/17 15:00 23:00 07:00 Intake Total 912.5 ml 1135 ml 2275 ml Balance 912.5 ml 1135 ml 2275 ml Results Result Diagram: 06/15/17 0510 06/15/17 0510 Results 24 hrs Laboratory Tests Test 06/14/17 20:12 06/15/17 01:46 06/15/17 05:10 06/15/17 08:02 Bedside Glucose 206 132 107 White Blood Count 4.8 Red Blood Count 2.90 L Hemoglobin 8.7 L Hematocrit 27.2 L Mean Corpuscular Volume 93.8 Mean Corpuscular Hemoglobin 30.0 Mean Corpuscular Hemoglobin Concent 32.0 Red Cell Distribution Width 15.5 H Platelet Count 79 #L Mean Platelet Volume 12.1 H Neutrophils % 54.1 Lymphocytes % 36.3 Monocytes % 5.8 Eosinophils % 2.1 Basophils % 0.4 Nucleated Red Blood Cells % 0.0 Neutrophils # 2.6 Lymphocytes # 1.7 Monocytes # 0.3 Eosinophils # 0.1 Basophils # 0.0 Nucleated Red Blood Cells # 0.0 Sodium Level 145 H Potassium Level 3.8 Chloride Level 108 Carbon Dioxide Level 23 Anion Gap 18 H Blood Urea Nitrogen 9 Creatinine 0.63 Glucose Level 130 Calcium Level 8.7 Phosphorus Level 4.6 Magnesium Level 1.4 L Iron Level 47 Total Iron Binding Capacity 279 Percent Iron Saturation 17 L Ferritin Pending Total Bilirubin 0.2 Direct Bilirubin 0.00 Indirect Bilirubin 0.2 Aspartate Amino Transf (AST/SGOT) 36 Alanine Aminotransferase (ALT/SGPT) 25 Alkaline Phosphatase 101 Ammonia 40 H Total Protein 7.3 Albumin 3.3 Alpha Fetoprotein 3.43 Test 06/15/17 12:01 06/15/17 17:39 Bedside Glucose 105 93 Medications Medications Current Medications Ondansetron HCl (Zofran Inj) 4 mg Q6H PRN IV NAUSEA AND/OR VOMITING; Start at 09:30 Acetaminophen (Tylenol Tab) 650 mg Q6H PRN PO PAIN LEVEL 1-3 OR FEVER Last administered on 06/15/17t 18:02; Admin Dose 650 MG; Start 06/10/17 at 09:30 Acetaminophen (Tylenol Supp) 650 mg Q6H PRN [place] PAIN LEVEL 1-3 OR FEVER; Start 06/10/17 at 09:30 Docusate Sodium (Colace) 100 mg Q12H PRN PO CONSTIPATION; Start 06/10/17 at 09: 30 Magnesium Hydroxide (Milk Of Mag) 30 ml DAILY PRN PO CONSTIPATION; Start at 09:30 Bisacodyl (Dulcolax Supp) 10 mg DAILY PRN [place] CONSTIPATION; Start 06/10/17 at 09 :30 Diagnostic Test (Pha) (Accu-Chek) 1 ea 02 XX ; Start 06/11/17 at 02:00 Tramadol HCl (Ultram) 50 mg Q6H PRN PO pain Last administered on 06/10/17 15: 13; Admin Dose 50 MG; Start 06/10/17 at 10:30 Tamsulosin HCl 0.4 mg 0.4 mg BID PO Last administered on 06/15/17 08:12; Admin Dose 0.4 MG; Start 06/11/17 at 21:00 Piperacillin Sod/ Tazobactam Sod 100 ml @ 200 mls/hr Q8 IVPB Last administered on 06/15/17 18:02; Admin Dose 200 MLS/HR; Start 06/12/17 at 14:00 Potassium Chloride/Sodium Chloride (1/2 NS + KCl 20 Meq) 1,000 ml @ 125 mls/hr Q8H IV Last administered on 06/15/17 08:12; Admin Dose 125 MLS/HR; Start 06/12 at 14:00 Simethicone (Mylicon) 80 mg Q6H PRN PO DISTENSION/GAS/BLOATING Last administered on 06/12/17 22:20; Admin Dose 80 MG; Start 06/12/17 at 20:30 Miscellaneous Information 1 ea NOTE XX ; Start 06/14/17 at 10:00 Glucose (Glutose) 15 gm Q15M PRN PO DECREASED GLUCOSE; Start 06/14/17 at 10:00 Glucose (Glutose) 22.5 gm Q15M PRN PO DECREASED GLUCOSE; Start 06/14/17 at 10: 00 Dextrose (D50w Syringe) 25 ml Q15M PRN IV DECREASED GLUCOSE; Start 06/14/17 at 10:00 Dextrose (D50w Syringe) 50 ml Q15M PRN IV DECREASED GLUCOSE; Start 06/14/17 at 10:00 Glucagon (Glucagen) 1 mg Q15M PRN IM DECREASED GLUCOSE; Start 06/14/17 at 10:00 Glucose (Glutose) 15 gm Q15M PRN BUCCAL DECREASED GLUCOSE; Start 06/14/17 at 10 :00 Pantoprazole (Protonix Tab) 40 mg DAILY@06 PO Last administered on 06/15/17t 05 :38; Admin Dose 40 MG; Start 06/15/17 at 06:00 CHAPARRO ELIZALDE NP Jun 15, 2017 19:35
--- NOTE | 2017-06-15 19:41 | PN ---
Date/Time of Note Date/Time of Note DATE: 06/15/17 TIME: 19:31 Assessment/Plan VTE Prophylaxis VTE Prophylaxis Intervention: ambulation Lines/Catheters IV Catheter Type (from [facility]): Peripheral IV Assessment/Plan Chief Complaint/Hosp Course History of distal left ureteral stone at the ureterovesical junction measuring 5 x 4 mm. she must have passed the stone as it is not seen any longer on the CT scan that she had last night. She has the genital prolapse and she will need a hysterectomy I would recommend to request a LIFE SCIENTIST consultation Problems: Assessment/Plan Genital prolapse patient will benefit from a LIFE SCIENTIST consultation, the distal left ureteral stone at the ureterovesical junction must have passed as it not seen anymore on the present CT scan Subjective 24 Hr Interval Summary Constitutional: no complaints Eyes: no complaints ENT: no complaints Respiratory: no complaints Cardiovascular: no complaints Gastrointestinal: no complaints Genitourinary: other (Genital prolapse) Musculoskeletal: no complaints Skin: no complaints Neurologic: no complaints Endocrine: no complaints Lymphatic: no complaints Psychological: no complaints Immunologic: no complaints Exam/Review of Systems Vital Signs Vitals Vital Signs Date Time Temp Pulse Resp B/P Pulse Ox O2 Delivery O2 Flow Rate FiO2 06/15/17 14:00 98.6 76 20 124/86 96 Intake and Output 06/14/17 06/14/17 06/15/17 15:00 23:00 07:00 Intake Total 912.5 ml 1135 ml 2275 ml Balance 912.5 ml 1135 ml 2275 ml Exam Constitutional: alert, oriented Psych: no complaints Head: normocephalic Eyes: nl conjunctiva ENMT: nl external ears & nose Neck: non-tender, supple Respiratory: normal air movement Cardiovascular: No edema Gastrointestinal: non-tender, other (Genital prolapse), soft Genitourinary - Female: other (Genital prolapse) Musculoskeletal: nl extremities to inspection Extremities: No calf tenderness, No cyanosis Skin: nl turgor Results Result Diagram: 06/15/17 0510 06/15/17 0510 Results 24 hrs Laboratory Tests Test 06/14/17 20:12 06/15/17 01:46 06/15/17 05:10 06/15/17 08:02 Bedside Glucose 206 132 107 White Blood Count 4.8 Red Blood Count 2.90 L Hemoglobin 8.7 L Hematocrit 27.2 L Mean Corpuscular Volume 93.8 Mean Corpuscular Hemoglobin 30.0 Mean Corpuscular Hemoglobin Concent 32.0 Red Cell Distribution Width 15.5 H Platelet Count 79 #L Mean Platelet Volume 12.1 H Neutrophils % 54.1 Lymphocytes % 36.3 Monocytes % 5.8 Eosinophils % 2.1 Basophils % 0.4 Nucleated Red Blood Cells % 0.0 Neutrophils # 2.6 Lymphocytes # 1.7 Monocytes # 0.3 Eosinophils # 0.1 Basophils # 0.0 Nucleated Red Blood Cells # 0.0 Sodium Level 145 H Potassium Level 3.8 Chloride Level 108 Carbon Dioxide Level 23 Anion Gap 18 H Blood Urea Nitrogen 9 Creatinine 0.63 Glucose Level 130 Calcium Level 8.7 Phosphorus Level 4.6 Magnesium Level 1.4 L Iron Level 47 Total Iron Binding Capacity 279 Percent Iron Saturation 17 L Ferritin Pending Total Bilirubin 0.2 Direct Bilirubin 0.00 Indirect Bilirubin 0.2 Aspartate Amino Transf (AST/SGOT) 36 Alanine Aminotransferase (ALT/SGPT) 25 Alkaline Phosphatase 101 Ammonia 40 H Total Protein 7.3 Albumin 3.3 Alpha Fetoprotein 3.43 Test 06/15/17 12:01 06/15/17 17:39 Bedside Glucose 105 93 Medications Medications Current Medications Ondansetron HCl (Zofran Inj) 4 mg Q6H PRN IV NAUSEA AND/OR VOMITING; Start at 09:30 Acetaminophen (Tylenol Tab) 650 mg Q6H PRN PO PAIN LEVEL 1-3 OR FEVER Last administered on 06/15/17 18:02; Admin Dose 650 MG; Start 06/10/17 at 09:30 Acetaminophen (Tylenol Supp) 650 mg Q6H PRN [place] PAIN LEVEL 1-3 OR FEVER; Start 06/10/17 at 09:30 Docusate Sodium (Colace) 100 mg Q12H PRN PO CONSTIPATION; Start 06/10/17 at 09: 30 Magnesium Hydroxide (Milk Of Mag) 30 ml DAILY PRN PO CONSTIPATION; Start at 09:30 Bisacodyl (Dulcolax Supp) 10 mg DAILY PRN [place] CONSTIPATION; Start 06/10/17 at 09 :30 Diagnostic Test (Pha) (Accu-Chek) 1 ea 02 XX ; Start 06/11/17 at 02:00 Tramadol HCl (Ultram) 50 mg Q6H PRN PO pain Last administered on 06/10/17 15: 13; Admin Dose 50 MG; Start 06/10/17 at 10:30 Tamsulosin HCl 0.4 mg 0.4 mg BID PO Last administered on 06/15/17 08:12; Admin Dose 0.4 MG; Start 06/11/17 at 21:00 Piperacillin Sod/ Tazobactam Sod 100 ml @ 200 mls/hr Q8 IVPB Last administered on 06/15/17 18:02; Admin Dose 200 MLS/HR; Start 06/12/17 at 14:00 Potassium Chloride/Sodium Chloride (1/2 NS + KCl 20 Meq) 1,000 ml @ 125 mls/hr Q8H IV Last administered on 06/15/17 08:12; Admin Dose 125 MLS/HR; Start 06/12 at 14:00 Simethicone (Mylicon) 80 mg Q6H PRN PO DISTENSION/GAS/BLOATING Last administered on 06/12/17 22:20; Admin Dose 80 MG; Start 06/12/17 at 20:30 Miscellaneous Information 1 ea NOTE XX ; Start 06/14/17 at 10:00 Glucose (Glutose) 15 gm Q15M PRN PO DECREASED GLUCOSE; Start 06/14/17 at 10:00 Glucose (Glutose) 22.5 gm Q15M PRN PO DECREASED GLUCOSE; Start 06/14/17 at 10: 00 Dextrose (D50w Syringe) 25 ml Q15M PRN IV DECREASED GLUCOSE; Start 06/14/17 at 10:00 Dextrose (D50w Syringe) 50 ml Q15M PRN IV DECREASED GLUCOSE; Start 06/14/17 at 10:00 Glucagon (Glucagen) 1 mg Q15M PRN IM DECREASED GLUCOSE; Start 06/14/17 at 10:00 Glucose (Glutose) 15 gm Q15M PRN BUCCAL DECREASED GLUCOSE; Start 06/14/17 at 10 :00 Pantoprazole (Protonix Tab) 40 mg DAILY@06 PO Last administered on 06/15/17 05 :38; Admin Dose 40 MG; Start 06/15/17 at 06:[address] scan of the abdomen and pelvis: Prominent bladder prolapse which appears to be causing bilateral hydronephrosis and hydroureter. Few tiny nonobstructing left renal stones, incidental. Probable mild uterine prolapse. Probable cirrhosis with splenomegaly also seen.. Thinning of the antrum abdominal wall with multiple small defects and fat- containing hernias and larger fat-containing hernia also seen with some calcifications within. Bilateral inguinal hernias containing fat and fluid. PIERO BAIG MD Jun 15, 2017 19:41
[2017-06-15 21:16] VITALS: BP 119/79; RESP 18
[2017-06-16] MEDS: ACCU-CHEK XX SCH (02:00)
[2017-06-16 02:14] VITALS: BP 102/68; RESP 22
[2017-06-16] MEDS: PANTOPRAZOLE (EC) 40 MG TAB PO SCH (05:32)
[2017-06-16] MEDS: PIPER-TAZO 3.375 GM IV (PMX) 100 ML IVPB SCH ×3 (05:32→21:18)
[2017-06-16] MEDS: 1/2 NS + KCL 20 MEQ 1,000 ML IV SCH ×3 (06:20→21:18)
[2017-06-16 06:33] LABS: ABNORMAL IP MESSAGE 1; BASOPHILS % 0.5 % (0.0-2.0); EOSINOPHILS # 0.1 10^3/ul (0.0-0.5); EOSINOPHILS % 2.5 % (0.0-7.0); HEMATOCRIT 28.6 % (37.0-47.0); HEMOGLOBIN 9.2 g/dl (12.0-16.0); LYMPHOCYTES # 1.4 10^3/ul (0.8-2.9); LYMPHOCYTES % 35.8 % (15.0-51.0); MEAN CORPUSCULAR HEMOGLOBIN 30.5 pg (29.0-33.0); MEAN CORPUSCULAR HGB CONC 32.2 g/dl (32.0-37.0); MEAN CORPUSCULAR VOLUME 94.7 fl (82.0-101.0); MEAN PLATELET VOLUME 11.5 fl (7.4-10.4); MONOCYTE # 0.2 10^3/ul (0.3-0.9); MONOCYTES % 4.2 % (0.0-11.0); NEUTROPHIL # 2.3 10^3/ul (1.6-7.5); PLATELET COUNT 96 10^3/UL (140-415); RED BLOOD COUNT 3.02 10^6/ul (4.20-5.40); RED CELL DISTRIBUTION WIDTH 15.5 % (11.5-14.5)
[2017-06-16 06:54] LABS: CALCIUM 8.7 mg/dl (8.4-10.2); CREATININE 0.61 mg/dl (0.44-1.00); POTASSIUM 3.9 mmol/L (3.5-5.1)
[2017-06-16 07:02] LABS: POSITIVE DIFF @See below
[2017-06-16 07:03] LABS: ALBUMIN 2.9 g/dl (3.3-4.9); BILIRUBIN,INDIRECT 0.2 mg/dl (0-1.1); BILIRUBIN,TOTAL 0.2 mg/dl (0.2-1.3); MAGNESIUM 1.2 mg/dl (1.7-2.5); PHOSPHORUS 4.8 mg/dl (2.5-4.9); TOTAL PROTEIN 6.7 g/dl (6.1-8.1)
[2017-06-16 07:04] LABS: INR 1.32; PROTIME 16.5 Sec (12.2-14.2); PT RATIO 1.3
[2017-06-16 07:05] LABS: PARTIAL THROMBOPLASTIN TIME 35.5 Sec (25.0-35.0)
--- NOTE | 2017-06-16 07:54 | RADRPT ---
PROCEDURE: US Abdomen. CLINICAL INDICATION: Right upper quadrant Abdominal pain. TECHNIQUE: Multiple real-time images were acquired of the patient's abdomen and retroperitoneum ut ilizing a high resolution transducer. COMPARISON: CT abdomen and pelvis June 14, 2017, bilateral renal ultrasound June 13, 2017 FINDINGS: The liver demonstrates a nodular contour, and is enlarged measuring 18 cm in longest dimension. Fin dings are compatible with cirrhosis. The common bile duct is 9.4 mm. No retained common bile duct stones are seen. There is stable, bilateral, mild to moderate collecting system dilatation. The right kidney is 12.3 cm. The left kidney is 14.8 cm. The spleen is again noted enlarged measuring 19.5 cm. The pancreas is unremarkable. IMPRESSION: 1. Findings compatible with hepatomegaly, splenomegaly, and cirrhosis of the liver. 2. Stable mild to moderate, bilateral hydronephrosis. Overall, no interval change. RPTAT: PP .Nancy Power MD, MD Date Time Electronically viewed and signed by .Nancy Power MD, on 06/16/2017 07:54 .F/
[2017-06-16] MEDS: INSULIN ASPART [NOVOLOG] 3 ML PEN SC SCH ×4 (08:00→20:07)
[2017-06-16] MEDS: TAMSULOSIN (SR) 0.4 MG CAP PO SCH ×2 (08:44→20:08)
[2017-06-16 08:53] VITALS: BP 113/74; RESP 22
[2017-06-16] MEDS ORDERED: MAGNESIUM SULFATE 4 GM/100 ML 100 ML IVPB ONE (11:30)
--- NOTE | 2017-06-16 11:40 | PN ---
Date/Time of Note Date/Time of Note DATE: 06/16/17 TIME: 11:34 Assessment/Plan VTE Prophylaxis VTE Prophylaxis Intervention: contraindicated Lines/Catheters IV Catheter Type (from [facility] Peripheral IV Assessment/Plan Chief Complaint/Hosp Course 1. S/P epsis secondary to bilateral pyelonephritis. Cultures from [facility] negative. Urine culture from [facility] showing E. coli. No evidence of septic shock. Continue antimicrobials as per infectious diseases. 2. Bilateral hydronephrosis. No evidence of obstructing lesions renal ultrasound. Continue IV hydration. Continue antibiotics. Patient's CT scan from outside facility showed a 5 x 4 mm calculus in the left ureterovesical junction. Status post evaluation by urology. Repeat imaging shows no evidence of any nephrolithiasis. 3. Type 2 diabetes mellitus. Hemoglobin A1c 7.2. Continue sliding scale insulin. 4. Normocytic, normochromic anemia. Will obtain iron panel. Monitor H&H closely. 5. Thrombocytopenia. Etiology unclear. Will monitor for any bleeding. 6. Uterine prolapse. Patient verbalized that she has had this for the past 5 years. However, she has not had any [employer] evaluation. Will call the hospital laborist for recommendations and evaluation 7. Radiographic appearance suggesting cirrhosis of liver. Patient denied any history of alcohol abuse. The patient denies any history of hepatitis. Gastroenterology following. 8. Fluids, electrolytes, and nutrition. Carbohydrate controlled diet. 9. DVT prophylaxis. Contraindicated. 10. Gastrointestinal prophylaxis. Proton pump inhibitors. 11. Plan. Continue antimicrobials. Obtain [employer] consultation. Replete magnesium. Case discussed with Dr. Adam. Problems: Exam/Review of Systems Vital Signs Vitals Vital Signs Date Time Temp Pulse Resp B/P Pulse Ox O2 Delivery O2 Flow Rate FiO2 06/16/17 08:53 98.2 75 22 113/74 95 Intake and Output 06/15/17 06/15/17 06/16/17 15:00 23:00 07:00 Intake Total 250 ml 1200 ml 1900 ml Balance 250 ml 1200 ml 1900 ml Exam General: Adequately build 51 year-old female lying in bed in no apparent distress. HEENT: Normocephalic, atraumatic. Eyes: Anicteric sclerae, conjunctivae clear. ENT: Nasal septum midline, oral mucosa moist. Neck supple, no JVD noticed. Respiratory: Bilaterally clear breath sounds. No use of accessory muscles of respiration. No adventitious breath sounds. Cardiovascular: S1, S2 heard. No murmurs or gallops. Abdomen: Soft and distended. Bowel sounds positive in all 4 quadrants. Suprapubic tenderness. Caput medusae. Umbilical hernia (reducible). Midline surgical scar. Genitourinary: Deferred. Extremities: No cyanosis, no clubbing. Trace B/L LE edema. Peripheral pulses palpable. Neurologic: Cranial nerves II through XII grossly intact. The patient is awake, alert, and oriented. Skin: Normal skin turgor. No skin rashes. Results Result Diagram: 06/16/17 0531 06/16/17 0531 Results 24 hrs Laboratory Tests Test 06/15/17 12:01 06/15/17 17:39 06/15/17 20:51 06/16/17 05:31 Bedside Glucose 105 93 171 White Blood Count 4.0 L Red Blood Count 3.02 L Hemoglobin 9.2 L Hematocrit 28.6 L Mean Corpuscular Volume 94.7 Mean Corpuscular Hemoglobin 30.5 Mean Corpuscular Hemoglobin Concent 32.2 Red Cell Distribution Width 15.5 H Platelet Count 96 #L Mean Platelet Volume 11.5 H Neutrophils % 56.0 Lymphocytes % 35.8 Monocytes % 4.2 Eosinophils % 2.5 Basophils % 0.5 Nucleated Red Blood Cells % 0.0 Neutrophils # 2.3 Lymphocytes # 1.4 Monocytes # 0.2 L Eosinophils # 0.1 Basophils # 0.0 Nucleated Red Blood Cells # 0.0 Prothrombin Time 16.5 H Prothrombin Time Ratio 1.3 INR International Normalized Ratio 1.32 Activated Partial Thromboplast Time 35.5 H Sodium Level 146 H Potassium Level 3.9 Chloride Level 107 Carbon Dioxide Level 27 Anion Gap 16 Blood Urea Nitrogen 6 L Creatinine 0.61 Glucose Level 146 Calcium Level 8.7 Phosphorus Level 4.8 Magnesium Level 1.2 L Total Bilirubin 0.2 Direct Bilirubin 0.00 Indirect Bilirubin 0.2 Aspartate Amino Transf (AST/SGOT) 39 Alanine Aminotransferase (ALT/SGPT) 30 Alkaline Phosphatase 83 Ammonia 27 Total Protein 6.7 Albumin 2.9 L Test 06/16/17 08:14 Bedside Glucose 102 Medications Medications Current Medications Ondansetron HCl (Zofran Inj) 4 mg Q6H PRN IV NAUSEA AND/OR VOMITING; Start at 09:30 Acetaminophen (Tylenol Tab) 650 mg Q6H PRN PO PAIN LEVEL 1-3 OR FEVER Last administered on 06/15/17 18:02; Admin Dose 650 MG; Start 06/10/17 at 09:30 Acetaminophen (Tylenol Supp) 650 mg Q6H PRN [place] PAIN LEVEL 1-3 OR FEVER; Start 06/10/17 at 09:30 Docusate Sodium (Colace) 100 mg Q12H PRN PO CONSTIPATION; Start 06/10/17 at 09: 30 Magnesium Hydroxide (Milk Of Mag) 30 ml DAILY PRN PO CONSTIPATION; Start at 09:30 Bisacodyl (Dulcolax Supp) 10 mg DAILY PRN [place] CONSTIPATION; Start 06/10/17 at 09 :30 Diagnostic Test (Pha) (Accu-Chek) 1 ea 02 XX ; Start 06/11/17 at 02:00 Tramadol HCl (Ultram) 50 mg Q6H PRN PO pain Last administered on 06/10/17 15: 13; Admin Dose 50 MG; Start 06/10/17 at 10:30 Tamsulosin HCl 0.4 mg 0.4 mg BID PO Last administered on 06/16/17 08:44; Admin Dose 0.4 MG; Start 06/11/17 at 21:00 Piperacillin Sod/ Tazobactam Sod 100 ml @ 200 mls/hr Q8 IVPB Last administered on 06/16/17 05:32; Admin Dose 200 MLS/HR; Start 06/12/17 at 14:00 Potassium Chloride/Sodium Chloride (1/2 NS + KCl 20 Meq) 1,000 ml @ 125 mls/hr Q8H IV Last administered on 06/16/17 06:20; Admin Dose 125 MLS/HR; Start 06/12 at 14:00 Simethicone (Mylicon) 80 mg Q6H PRN PO DISTENSION/GAS/BLOATING Last administered on 06/12/17 22:20; Admin Dose 80 MG; Start 06/12/17 at 20:30 Miscellaneous Information 1 ea NOTE XX ; Start 06/14/17 at 10:00 Glucose (Glutose) 15 gm Q15M PRN PO DECREASED GLUCOSE; Start 06/14/17 at 10:00 Glucose (Glutose) 22.5 gm Q15M PRN PO DECREASED GLUCOSE; Start 06/14/17 at 10: 00 Dextrose (D50w Syringe) 25 ml Q15M PRN IV DECREASED GLUCOSE; Start 06/14/17 at 10:00 Dextrose (D50w Syringe) 50 ml Q15M PRN IV DECREASED GLUCOSE; Start 06/14/17 at 10:00 Glucagon (Glucagen) 1 mg Q15M PRN IM DECREASED GLUCOSE; Start 06/14/17 at 10:00 Glucose (Glutose) 15 gm Q15M PRN BUCCAL DECREASED GLUCOSE; Start 06/14/17 at 10 :00 Pantoprazole 40 mg 40 mg DAILY@06 PO Last administered on 06/16/17t 05:32; Admin Dose 40 MG; Start 06/15/17 at 06:00 Magnesium Sulfate (Magnesium Sulfate 4 Gm/100 ml) 100 ml @ 25 mls/hr ONCE ONCE IVPB ; Start 06/16/17 at 11:30; Stop 06/16/17 at 15:29 LANCE KRAUS NP Jun 16, 2017 11:40
--- NOTE | 2017-06-16 11:56 | CONS ---
Date/Time of Note Date/Time of Note DATE: 06/16/17 TIME: 11:50 Assessment/Plan Assessment/Plan Chief Complaint/Hosp Course Genital prolapse Problems: Additional Assessment/Plan 1. Uterine prolapse and cystocele Recommend pelvic ultrasound to be done today Patient should follow-up as an outpatient with a international banker 2. Urinary stress incontinence Recommend follow-up as an outpatient with urologist/uro-international banker Consultation Date/Type/Reason Admit Date/Time Jun 10, 2017 at 05:49 Type of Consultation: Gynecology consultation Reason for Consultation Uterine prolapse/cystocele Urinary stress incontinence Hx of Present Illness Patient is a 51-year-old 4 para 4 postmenopausal for the last 5 years Past obstetrical history significant for 3 and 1 Patient with history of uterine prolapse/cystocele for the last 4-5 years Patient is complaining of symptoms consistent with urinary stress incontinence She has no complaints of abnormal vaginal bleeding Constitutional: no complaints Eyes: no complaints ENT: no complaints Respiratory: no complaints Cardiovascular: no complaints Gastrointestinal: no complaints Genitourinary: other (Uterine prolapse and cystocele) Musculoskeletal: no complaints Skin: no complaints Neurologic: no complaints Endocrine: no complaints Lymphatic: no complaints Psychological: no complaints Immunologic: no complaints Past Medical History Medical History: diabetes, high cholesterol Past Surgical History Past Surgical Hx: cholecystectomy, other () Social History Alcohol Use: none Smoking Status: Never smoker Exam/Review of Systems Vital Signs Vitals Vital Signs Date Time Temp Pulse Resp B/P Pulse Ox O2 Delivery O2 Flow Rate FiO2 06/16/17 08:53 98.2 75 22 113/74 95 Intake and Output 06/15/17 06/15/17 06/16/17 15:00 23:00 07:00 Intake Total 250 ml 1200 ml 1900 ml Balance 250 ml 1200 ml 1900 ml Results Result Diagram: 06/16/17 0531 06/16/17 0531 Results 24 hrs Laboratory Tests Test 06/15/17 12:01 06/15/17 17:39 06/15/17 20:51 06/16/17 05:31 Bedside Glucose 105 93 171 White Blood Count 4.0 L Red Blood Count 3.02 L Hemoglobin 9.2 L Hematocrit 28.6 L Mean Corpuscular Volume 94.7 Mean Corpuscular Hemoglobin 30.5 Mean Corpuscular Hemoglobin Concent 32.2 Red Cell Distribution Width 15.5 H Platelet Count 96 #L Mean Platelet Volume 11.5 H Neutrophils % 56.0 Lymphocytes % 35.8 Monocytes % 4.2 Eosinophils % 2.5 Basophils % 0.5 Nucleated Red Blood Cells % 0.0 Neutrophils # 2.3 Lymphocytes # 1.4 Monocytes # 0.2 L Eosinophils # 0.1 Basophils # 0.0 Nucleated Red Blood Cells # 0.0 Prothrombin Time 16.5 H Prothrombin Time Ratio 1.3 INR International Normalized Ratio 1.32 Activated Partial Thromboplast Time 35.5 H Sodium Level 146 H Potassium Level 3.9 Chloride Level 107 Carbon Dioxide Level 27 Anion Gap 16 Blood Urea Nitrogen 6 L Creatinine 0.61 Glucose Level 146 Calcium Level 8.7 Phosphorus Level 4.8 Magnesium Level 1.2 L Total Bilirubin 0.2 Direct Bilirubin 0.00 Indirect Bilirubin 0.2 Aspartate Amino Transf (AST/SGOT) 39 Alanine Aminotransferase (ALT/SGPT) 30 Alkaline Phosphatase 83 Ammonia 27 Total Protein 6.7 Albumin 2.9 L Test 06/16/17 08:14 Bedside Glucose 102 Medications Medications Current Medications Ondansetron HCl (Zofran Inj) 4 mg Q6H PRN IV NAUSEA AND/OR VOMITING; Start at 09:30 Acetaminophen (Tylenol Tab) 650 mg Q6H PRN PO PAIN LEVEL 1-3 OR FEVER Last administered on 06/15/17 18:02; Admin Dose 650 MG; Start 06/10/17 at 09:30 Acetaminophen (Tylenol Supp) 650 mg Q6H PRN IN PAIN LEVEL 1-3 OR FEVER; Start 06/10/17 at 09:30 Docusate Sodium (Colace) 100 mg Q12H PRN PO CONSTIPATION; Start 06/10/17 at 09: 30 Magnesium Hydroxide (Milk Of Mag) 30 ml DAILY PRN PO CONSTIPATION; Start at 09:30 Bisacodyl (Dulcolax Supp) 10 mg DAILY PRN IN CONSTIPATION; Start 06/10/17 at 09 :30 Diagnostic Test (Pha) (Accu-Chek) 1 ea 02 XX ; Start 06/11/17 at 02:00 Tramadol HCl (Ultram) 50 mg Q6H PRN PO pain Last administered on 06/10/17 15: 13; Admin Dose 50 MG; Start 06/10/17 at 10:30 Tamsulosin HCl 0.4 mg 0.4 mg BID PO Last administered on 06/16/17 08:44; Admin Dose 0.4 MG; Start 06/11/17 at 21:00 Piperacillin Sod/ Tazobactam Sod 100 ml @ 200 mls/hr Q8 IVPB Last administered on 06/16/17 05:32; Admin Dose 200 MLS/HR; Start 06/12/17 at 14:00 Potassium Chloride/Sodium Chloride (1/2 NS + KCl 20 Meq) 1,000 ml @ 125 mls/hr Q8H IV Last administered on 06/16/17 06:20; Admin Dose 125 MLS/HR; Start 06/12 at 14:00 Simethicone (Mylicon) 80 mg Q6H PRN PO DISTENSION/GAS/BLOATING Last administered on 06/12/17 22:20; Admin Dose 80 MG; Start 06/12/17 at 20:30 Miscellaneous Information 1 ea NOTE XX ; Start 06/14/17 at 10:00 Glucose (Glutose) 15 gm Q15M PRN PO DECREASED GLUCOSE; Start 06/14/17 at 10:00 Glucose (Glutose) 22.5 gm Q15M PRN PO DECREASED GLUCOSE; Start 06/14/17 at 10: 00 Dextrose (D50w Syringe) 25 ml Q15M PRN IV DECREASED GLUCOSE; Start 06/14/17 at 10:00 Dextrose (D50w Syringe) 50 ml Q15M PRN IV DECREASED GLUCOSE; Start 06/14/17 at 10:00 Glucagon (Glucagen) 1 mg Q15M PRN IM DECREASED GLUCOSE; Start 06/14/17 at 10:00 Glucose (Glutose) 15 gm Q15M PRN BUCCAL DECREASED GLUCOSE; Start 06/14/17 at 10 :00 Pantoprazole 40 mg 40 mg DAILY@06 PO Last administered on 06/16/17 05:32; Admin Dose 40 MG; Start 06/15/17 at 06:00 Magnesium Sulfate (Magnesium Sulfate 4 Gm/100 ml) 100 ml @ 25 mls/hr ONCE ONCE IVPB ; Start 06/16/17 at 11:30; Stop 06/16/17 at 15:29 KRISHNA LANDRY MD Jun 16, 2017 11:56
--- NOTE | 2017-06-16 14:56 | RADRPT ---
PROCEDURE: US Pelvis. CLINICAL INDICATION: pelvic pain , uterine prolapse TECHNIQUE: Multiple sonographic images of the pelvis were obtained utilizing a transabdominal and endovaginal technique. The images were reviewed on a PACS workstation. COMPARISON: 06/14/17 FINDINGS: The uterus is partially visualized. The uterus measures 7.0 x 2.8 x 3.1 cm. There is normal echogen icity. There is no focal mass. The endometrial stripe and ovaries were not visualized. No free fluid is present within the pelvis. RPTAT: AA IMPRESSION: Limited study. The uterus is partially visualized. Endometrium and ovaries not seen. .Walter Villafana MD, MD Date Time Electronically viewed and signed by .Walter Villafana MD, on 06/16/2017 14:55 .S/
[2017-06-16 17:05] VITALS: BP 129/88; RESP 18
--- NOTE | 2017-06-16 17:23 | CONS ---
Date/Time of Note Date/Time of Note DATE: 06/16/17 TIME: 17:22 Assessment/Plan Assessment/Plan Chief Complaint/Hosp Course ID PROGRESS NOTE TOTAL ABX DAY # 7 => ZOSYN 24H SUMMARY * WAREHOUSE PRICING AND INVENTORY CLERK consult appreciated=> Uterine prolapse and cystocele with stress incontinence * 06/09/17 [facility] Urine Cx (+)E.Coli >100,000 * (+)E.Coli => RESISTANT to Quinolones/Ampicillin/Bactrim * (+)E.Coli =>SENSITIVE to Ancef/Aminoglycosides/Macrobid/Zosyn/Merrem * No fevers, VSS, A/A/O -> she still has right flank pain + suprabubic pain worse with movement, improves with laying on left side. Physical examination: Well-developed middle-aged woman who is alert in no distress. Head atraumatic normocephalic sclera nonicteric. Neck supple chest rise symmetrical. Breath sounds clear. Heart: S1-S2. Abdomen distended, soft abdominal hernia present. Extremities without cyanosis edema. ID ASSESSMENT 51 yo Obese F admit with: 1. Systemic inflammatory response syndrome with fevers, leukocytosis * 06/10/17 BCX: BLOOD CULTURE Final NO GROWTH AFTER 5 DAYS 2. Acute pyelonephritis => Bilateral Flank Pain Improved * 06/09/17 [facility] Urine Cx (+)E.Coli >100,000 * (+)E.Coli => RESISTANT to Quinolones/Ampicillin/Bactrim * (+)E.Coli =>SENSITIVE to Ancef/Augmentin/Aminoglycosides/Macrobid/Zosyn/ Merrem 3. Obstructive uropathy with a CT scan from another facility revealed hydroureteral ureteronephrosis with a 5.4 mm calculus in the left ureterovesicular junction * [facility] renal US: There is moderate bilateral hydronephrosis with no obstructing lesion visualized. * CT ABD/Pelvis: Prominent bladder prolapse which appears to be causing bilateral hydronephrosis and hydroureter. Few tiny nonobstructing left renal stones, incidental. Probable mild uterine prolapse. 4. Diabetes 5. Probable cirrhosis with splenomegaly also seen on CT 6. Bilateral inguinal and antral fat containing hernias on CT 7. Uterine prolapse and cystocele with stress incontinence -> per WAREHOUSE PRICING AND INVENTORY CLERK cyber security consultant TOTAL ABX DAY # 7 => ZOSYN ID RECOMMENDATIONS/Plan 1. Re Dye Hand recommendations completed: * Per stone likely has passed since not seen on repeat CT -> She needs hysterectomy and cystocele repair bladder prolapse causing urinary obstruction * Per WAREHOUSE PRICING AND INVENTORY CLERK-> Patient recommended to f/u OP with M[employer]ED [employer] OFFICER and/or urologist/uro- technology engineer as outpatient 2. Patient is stable from ID perspective to DC home with PO ABX & pain medications when cleared by primary. * Patient may DC home SUN on Augmentin 875mg po Q12H x 7 days to complete 14 days due to bilateral pyelonephritis w/obstructive uropathy. * Per [facility] the E.Coli is sensitive to Augmentin; unfortunately, [facility] did not fax over the final blood cultures; hence treat her for a total of 14 days. * Thank you . . Problems: Consultation Date/Type/Reason Admit Date/Time Jun 10, 2017 at 05:49 Initial Consult Date 06/10/17 Type of Consultation: ID Referring Provider: LANCE KRAUS FLEET ASSISTANT Exam/Review of Systems Vital Signs Vitals Vital Signs Date Time Temp Pulse Resp B/P Pulse Ox O2 Delivery O2 Flow Rate FiO2 06/16/17 17:05 98.3 80 18 129/88 97 Intake and Output 06/15/17 06/15/17 06/16/17 15:00 23:00 07:00 Intake Total 250 ml 1200 ml 1900 ml Balance 250 ml 1200 ml 1900 ml Results Result Diagram: 06/16/17 0531 06/16/17 0531 Results 24 hrs Laboratory Tests Test 06/15/17 17:39 06/15/17 20:51 06/16/17 05:31 06/16/17 08:14 Bedside Glucose 93 171 102 White Blood Count 4.0 L Red Blood Count 3.02 L Hemoglobin 9.2 L Hematocrit 28.6 L Mean Corpuscular Volume 94.7 Mean Corpuscular Hemoglobin 30.5 Mean Corpuscular Hemoglobin Concent 32.2 Red Cell Distribution Width 15.5 H Platelet Count 96 #L Mean Platelet Volume 11.5 H Neutrophils % 56.0 Lymphocytes % 35.8 Monocytes % 4.2 Eosinophils % 2.5 Basophils % 0.5 Nucleated Red Blood Cells % 0.0 Neutrophils # 2.3 Lymphocytes # 1.4 Monocytes # 0.2 L Eosinophils # 0.1 Basophils # 0.0 Nucleated Red Blood Cells # 0.0 Prothrombin Time 16.5 H Prothrombin Time Ratio 1.3 INR International Normalized Ratio 1.32 Activated Partial Thromboplast Time 35.5 H Sodium Level 146 H Potassium Level 3.9 Chloride Level 107 Carbon Dioxide Level 27 Anion Gap 16 Blood Urea Nitrogen 6 L Creatinine 0.61 Glucose Level 146 Calcium Level 8.7 Phosphorus Level 4.8 Magnesium Level 1.2 L Total Bilirubin 0.2 Direct Bilirubin 0.00 Indirect Bilirubin 0.2 Aspartate Amino Transf (AST/SGOT) 39 Alanine Aminotransferase (ALT/SGPT) 30 Alkaline Phosphatase 83 Ammonia 27 Total Protein 6.7 Albumin 2.9 L Test 06/16/17 11:50 Bedside Glucose 104 Medications Medications Current Medications Ondansetron HCl (Zofran Inj) 4 mg Q6H PRN IV NAUSEA AND/OR VOMITING; Start at 09:30 Acetaminophen (Tylenol Tab) 650 mg Q6H PRN PO PAIN LEVEL 1-3 OR FEVER Last administered on 06/15/17 18:02; Admin Dose 650 MG; Start 06/10/17 at 09:30 Acetaminophen (Tylenol Supp) 650 mg Q6H PRN [place] PAIN LEVEL 1-3 OR FEVER; Start 06/10/17 at 09:30 Docusate Sodium (Colace) 100 mg Q12H PRN PO CONSTIPATION; Start 06/10/17 at 09: 30 Magnesium Hydroxide (Milk Of Mag) 30 ml DAILY PRN PO CONSTIPATION; Start at 09:30 Bisacodyl (Dulcolax Supp) 10 mg DAILY PRN [place] CONSTIPATION; Start 06/10/17 at 09 :30 Diagnostic Test (Pha) (Accu-Chek) 1 ea 02 XX ; Start 06/11/17 at 02:00 Tramadol HCl (Ultram) 50 mg Q6H PRN PO pain Last administered on 06/10/17 15: 13; Admin Dose 50 MG; Start 06/10/17 at 10:30 Tamsulosin HCl 0.4 mg 0.4 mg BID PO Last administered on 06/16/17 08:44; Admin Dose 0.4 MG; Start 06/11/17 at 21:00 Piperacillin Sod/ Tazobactam Sod 100 ml @ 200 mls/hr Q8 IVPB Last administered on 06/16/17 15:24; Admin Dose 200 MLS/HR; Start 06/12/17 at 14:00 Potassium Chloride/Sodium Chloride (1/2 NS + KCl 20 Meq) 1,000 ml @ 125 mls/hr Q8H IV Last administered on 06/16/17 06:20; Admin Dose 125 MLS/HR; Start 06/12 at 14:00 Simethicone (Mylicon) 80 mg Q6H PRN PO DISTENSION/GAS/BLOATING Last administered on 06/12/17 22:20; Admin Dose 80 MG; Start 06/12/17 at 20:30 Miscellaneous Information 1 ea NOTE XX ; Start 06/14/17 at 10:00 Glucose (Glutose) 15 gm Q15M PRN PO DECREASED GLUCOSE; Start 06/14/17 at 10:00 Glucose (Glutose) 22.5 gm Q15M PRN PO DECREASED GLUCOSE; Start 06/14/17 at 10: 00 Dextrose (D50w Syringe) 25 ml Q15M PRN IV DECREASED GLUCOSE; Start 06/14/17 at 10:00 Dextrose (D50w Syringe) 50 ml Q15M PRN IV DECREASED GLUCOSE; Start 06/14/17 at 10:00 Glucagon (Glucagen) 1 mg Q15M PRN IM DECREASED GLUCOSE; Start 06/14/17 at 10:00 Glucose (Glutose) 15 gm Q15M PRN BUCCAL DECREASED GLUCOSE; Start 06/14/17 at 10 :00 Pantoprazole (Protonix Tab) 40 mg DAILY@06 PO Last administered on 06/16/17 05 :32; Admin Dose 40 MG; Start 06/15/17 at 06:00 CHAPARRO ELIZALDE NP Jun 16, 2017 17:23
[2017-06-16] MEDS: traMADol 50 MG TAB PO PRN (17:25)
[2017-06-16 20:00] VITALS: BP 121/76; RESP 20
[2017-06-16] MEDS ORDERED: IBUPROFEN 600 MG TAB PO ONE (21:30)
[2017-06-16 21:59] LABS: HEPATITIS B CORE ANTIBODY NEGATIVE (NEGATIVE)
[2017-06-17] MEDS: ACCU-CHEK XX SCH (01:50)
[2017-06-17 02:00] VITALS: BP 106/64; RESP 20
[2017-06-17] MEDS: PANTOPRAZOLE (EC) 40 MG TAB PO SCH (05:21)
[2017-06-17] MEDS: PIPER-TAZO 3.375 GM IV (PMX) 100 ML IVPB SCH ×2 (05:21→13:36)
[2017-06-17] MEDS: 1/2 NS + KCL 20 MEQ 1,000 ML IV SCH ×2 (05:22→13:40)
[2017-06-17 06:05] LABS: BASOPHILS % 0.2 % (0.0-2.0); EOSINOPHILS # 0.1 10^3/ul (0.0-0.5); HEMATOCRIT 28.3 % (37.0-47.0); LYMPHOCYTES # 1.6 10^3/ul (0.8-2.9); LYMPHOCYTES % 32.4 % (15.0-51.0); MEAN CORPUSCULAR HEMOGLOBIN 30.2 pg (29.0-33.0); MEAN CORPUSCULAR HGB CONC 31.8 g/dl (32.0-37.0); MONOCYTE # 0.3 10^3/ul (0.3-0.9); MONOCYTES % 5.2 % (0.0-11.0); NEUTROPHILS % 59.6 % (39.0-77.0); PLATELET COUNT 103 10^3/UL (140-415); RED BLOOD COUNT 2.98 10^6/ul (4.20-5.40); RED CELL DISTRIBUTION WIDTH 15.8 % (11.5-14.5)
[2017-06-17 06:24] LABS: ALBUMIN/GLOBULIN RATIO 0.68; BILIRUBIN,INDIRECT 0.2 mg/dl (0-1.1); BILIRUBIN,TOTAL 0.2 mg/dl (0.2-1.3); CALCIUM 8.5 mg/dl (8.4-10.2); CREATININE 0.54 mg/dl (0.44-1.00); TOTAL PROTEIN 7.4 g/dl (6.1-8.1)
[2017-06-17 07:14] LABS: MAGNESIUM 1.9 mg/dl (1.7-2.5)
[2017-06-17 08:00] VITALS: BP 101/60; RESP 18
[2017-06-17] MEDS: TAMSULOSIN (SR) 0.4 MG CAP PO SCH (08:39)
[2017-06-17] MEDS: INSULIN ASPART [NOVOLOG] 3 ML PEN SC SCH ×2 (08:41→12:00)
[2017-06-17] MEDS ORDERED: AMOX1TAB10 PO (11:01)
[2017-06-17] MEDS ORDERED: TRAM50TA2 PO (11:01)
--- NOTE | 2017-06-17 11:05 | PDOCDIS ---
Discharge Instructions DIAGNOSIS Discharge Diagnosis 1. S/P epsis secondary to bilateral pyelonephritis. 2. Bilateral hydronephrosis. 3. Type 2 diabetes mellitus. Hemoglobin A1c 7.2. 4. Normocytic, normochromic anemia. 5. Thrombocytopenia. 6. Uterine prolapse. 7. Radiographic appearance suggesting cirrhosis of liver. HOME CARE INSTRUCTIONS: Special Diet: diabetic carb controlled FOLLOW UP/APPOINTMENTS Follow-up Plan 1. Follow-up with your primary care provider within a week 2. Here elevated primary care provider for BOAT BUILDER AND REPAIRER referral 3. Follow up with Dr. Johanny Andrews in one week ALVARO PETERS Jun 17, 2017 11:05
--- NOTE | 2017-06-17 13:54 | CONS ---
Date/Time of Note Date/Time of Note DATE: 06/17/17 TIME: 13:51 Assessment/Plan Assessment/Plan Chief Complaint/Hosp Course Assessment/Plan Chief Complaint/Hosp Course ID PROGRESS NOTE TOTAL ABX DAY # 7 => ZOSYN 24H SUMMARY * GROUP SEGMENT CONSULTANT consult appreciated=> Uterine prolapse and cystocele with stress incontinence * 06/09/17 [facility] Urine Cx (+)E.Coli >100,000 * (+)E.Coli => RESISTANT to Quinolones/Ampicillin/Bactrim * (+)E.Coli =>SENSITIVE to Ancef/Aminoglycosides/Macrobid/Zosyn/Merrem * No fevers. Denies Flank Pain. No Acute Distress. Physical examination: Well-developed middle-aged woman who is alert in no distress. Head atraumatic normocephalic sclera nonicteric. Neck supple chest rise symmetrical. Breath sounds clear. Heart: S1-S2. Abdomen distended, soft abdominal hernia present. Extremities without cyanosis edema. ID ASSESSMENT 51 yo Obese F admit with: 1. Systemic inflammatory response syndrome with fevers, leukocytosis * 06/10/17 [facility]: BLOOD CULTURE Final NO GROWTH AFTER 5 DAYS 2. Acute pyelonephritis => Bilateral Flank Pain Improved * 06/09/17 [facility] Urine Cx (+)E.Coli >100,000 * (+)E.Coli => RESISTANT to Quinolones/Ampicillin/Bactrim * (+)E.Coli =>SENSITIVE to Ancef/Augmentin/Aminoglycosides/Macrobid/Zosyn/ Merrem 3. Obstructive uropathy with a CT scan from another facility revealed hydroureteral ureteronephrosis with a 5.4 mm calculus in the left ureterovesicular junction * [facility] renal US: There is moderate bilateral hydronephrosis with no obstructing lesion visualized. * CT ABD/Pelvis: Prominent bladder prolapse which appears to be causing bilateral hydronephrosis and hydroureter. Few tiny nonobstructing left renal stones, incidental. Probable mild uterine prolapse. 4. Diabetes 5. Probable cirrhosis with splenomegaly also seen on CT 6. Bilateral inguinal and antral fat containing hernias on CT 7. Uterine prolapse and cystocele with stress incontinence -> per GROUP SEGMENT CONSULTANT new vehicle sales consultant TOTAL ABX DAY # 7 => ZOSYN ID RECOMMENDATIONS/Plan 1. Machine Or Machinery Mechanic recommendations completed: * Per stone likely has passed since not seen on repeat CT -> She needs hysterectomy and cystocele repair bladder prolapse causing urinary obstruction * Per GROUP SEGMENT CONSULTANT-> Patient recommended to f/u OP with LIVESTOCK SALES REPRESENTATIVE and/or urologist/uro- nursing home manager as outpatient 2. Patient is stable from ID perspective to DC home with PO ABX & pain medications when cleared by primary. * Patient may DC home SUN on Augmentin 875mg po Q12H x 7 days to complete 14 days due to bilateral pyelonephritis w/obstructive uropathy. * Per [facility] the E.Coli is sensitive to Augmentin; unfortunately, [facility] did not fax over the final blood cultures; hence treat her for a total of 14 days. * Thank you Problems: Consultation Date/Type/Reason Admit Date/Time Jun 10, 2017 at 05:49 Initial Consult Date 06/10/17 Type of Consultation: ID Referring Provider: LANCE KRAUS BULK SUGAR HANDLER Exam/Review of Systems Vital Signs Vitals Vital Signs Date Time Temp Pulse Resp B/P Pulse Ox O2 Delivery O2 Flow Rate FiO2 06/17/17 08:00 97.6 74 18 101/60 95 Intake and Output 06/16/17 06/16/17 06/17/17 15:00 23:00 07:00 Intake Total 2350 ml 1150 ml Balance 2350 ml 1150 ml Results Result Diagram: 06/17/17 0437 06/17/17 0437 Results 24 hrs Laboratory Tests Test 06/16/17 17:18 06/16/17 20:06 06/17/17 04:37 06/17/17 07:59 Bedside Glucose 150 128 178 White Blood Count 5.0 # Red Blood Count 2.98 L Hemoglobin 9.0 L Hematocrit 28.3 L Mean Corpuscular Volume 95.0 Mean Corpuscular Hemoglobin 30.2 Mean Corpuscular Hemoglobin Concent 31.8 L Red Cell Distribution Width 15.8 H Platelet Count 103 L Mean Platelet Volume 11.0 H Neutrophils % 59.6 Lymphocytes % 32.4 Monocytes % 5.2 Eosinophils % 2.0 Basophils % 0.2 Nucleated Red Blood Cells % 0.0 Neutrophils # 3.0 Lymphocytes # 1.6 Monocytes # 0.3 Eosinophils # 0.1 Basophils # 0.0 Nucleated Red Blood Cells # 0.0 Sodium Level 143 Potassium Level 4.0 Chloride Level 104 Carbon Dioxide Level 26 Anion Gap 17 H Blood Urea Nitrogen 7 Creatinine 0.54 Glucose Level 205 Calcium Level 8.5 Phosphorus Level 4.0 Magnesium Level 1.9 Total Bilirubin 0.2 Direct Bilirubin 0.00 Indirect Bilirubin 0.2 Aspartate Amino Transf (AST/SGOT) 40 Alanine Aminotransferase (ALT/SGPT) 32 Alkaline Phosphatase 103 Ammonia 33 H Total Protein 7.4 Albumin 3.0 L Globulin 4.40 H Albumin/Globulin Ratio 0.68 Test 06/17/17 12:03 Bedside Glucose 113 Medications Medications Current Medications Ondansetron HCl (Zofran Inj) 4 mg Q6H PRN IV NAUSEA AND/OR VOMITING; Start at 09:30 Acetaminophen (Tylenol Tab) 650 mg Q6H PRN PO PAIN LEVEL 1-3 OR FEVER Last administered on 06/15/17 18:02; Admin Dose 650 MG; Start 06/10/17 at 09:30 Acetaminophen (Tylenol Supp) 650 mg Q6H PRN IL PAIN LEVEL 1-3 OR FEVER; Start 06/10/17 at 09:30 Docusate Sodium (Colace) 100 mg Q12H PRN PO CONSTIPATION; Start 06/10/17 at 09: 30 Magnesium Hydroxide (Milk Of Mag) 30 ml DAILY PRN PO CONSTIPATION; Start at 09:30 Bisacodyl (Dulcolax Supp) 10 mg DAILY PRN [place] CONSTIPATION; Start 06/10/17 at 09 :30 Diagnostic Test (Pha) (Accu-Chek) 1 ea 02 XX ; Start 06/11/17 at 02:00 Tramadol HCl (Ultram) 50 mg Q6H PRN PO pain Last administered on 06/16/17 17: 25; Admin Dose 50 MG; Start 06/10/17 at 10:30 Tamsulosin HCl 0.4 mg 0.4 mg BID PO Last administered on 06/17/17 08:39; Admin Dose 0.4 MG; Start 06/11/17 at 21:00 Piperacillin Sod/ Tazobactam Sod 100 ml @ 200 mls/hr Q8 IVPB Last administered on 06/17/17 13:36; Admin Dose 200 MLS/HR; Start 06/12/17 at 14:00 Potassium Chloride/Sodium Chloride (1/2 NS + KCl 20 Meq) 1,000 ml @ 125 mls/hr Q8H IV Last administered on 06/17/17 13:40; Admin Dose 125 MLS/HR; Start 06/12 at 14:00 Simethicone (Mylicon) 80 mg Q6H PRN PO DISTENSION/GAS/BLOATING Last administered on 06/12/17 22:20; Admin Dose 80 MG; Start 06/12/17 at 20:30 Miscellaneous Information 1 ea NOTE XX ; Start 06/14/17 at 10:00 Glucose (Glutose) 15 gm Q15M PRN PO DECREASED GLUCOSE; Start 06/14/17 at 10:00 Glucose (Glutose) 22.5 gm Q15M PRN PO DECREASED GLUCOSE; Start 06/14/17 at 10: 00 Dextrose (D50w Syringe) 25 ml Q15M PRN IV DECREASED GLUCOSE; Start 06/14/17 at 10:00 Dextrose (D50w Syringe) 50 ml Q15M PRN IV DECREASED GLUCOSE; Start 06/14/17 at 10:00 Glucagon (Glucagen) 1 mg Q15M PRN IM DECREASED GLUCOSE; Start 06/14/17 at 10:00 Glucose (Glutose) 15 gm Q15M PRN BUCCAL DECREASED GLUCOSE; Start 06/14/17 at 10 :00 Pantoprazole (Protonix Tab) 40 mg DAILY@06 PO Last administered on 06/17/17 05 :21; Admin Dose 40 MG; Start 06/15/17 at 06:00 RON MONTES NP Jun 17, 2017 13:54
[2017-06-17 14:00] VITALS: BP 104/61; RESP 19
--- NOTE | 2017-06-17 16:23 | DS ---
Date/Time of Note Date/Time of Note DATE: 06/17/17 TIME: 16:17 Discharge Summary Admission/Discharge Info Admit Date/Time Jun 10, 2017 at 05:49 Discharge Date/Time Discharge Diagnosis 1. S/P epsis secondary to bilateral pyelonephritis. 2. Bilateral hydronephrosis. 3. Type 2 diabetes mellitus. Hemoglobin A1c 7.2. 4. Normocytic, normochromic anemia. 5. Thrombocytopenia. 6. Uterine prolapse. 7. Radiographic appearance suggesting cirrhosis of liver. Patient Condition: Stable Consults 1. Dr. Chris Rodrigues 2. Dr. Verona Gregorio 3. Dr. Campbell Winter 4. Lupe Calero NP Hx of Present Illness This is a 51-year-old female with history of diabetes, dyslipidemia, cholelithiasis status post cholecystectomy, umbilical hernia (for 25 years reportedly), who came to [facility] due to reports of flank pain. Patient was initially transferred from outside hospital due to insurance reasons. Patient did report that reason for coming to the hospital was that she had abdominal pain on bilateral flanks side posteriorly for 3 days duration. She also reported having some fevers and subjective chills. She also had some dysuria and suspect hematuria. Subsequently she went to [facility] initially for further evaluation. Upon examination she had a CT scan of her abdomen and pelvis that initially did show her to have mild left hydroureteronephrosis traceable to a 5 x 4 mm calculus at the left ureterovesicular junction. There is also seen mild perinephric inflammatory stranding of the left kidney additionally tiny nonobstructing left lower pole renal calculus. Patient was seen also incidentally with development of nodular contour of the liver concerning for possible cirrhosis with hepatomegaly and portal hypertension. She was seen also with a stable left adrenal gland adenoma as well as splenomegaly. Enlarging fat-containing left paracentral ventral hernia seen again measuring 7.7 x 6.5 centimeters. She was seen with diverticulosis without diverticulitis. Patient denies any anterior abdominal pain and reports primary pain is on bilateral flanks. She denies any history of recurrent UTI. Blood work done at [facility] did show to have white count of 9.3 and some anemia with 12.3 and hematocrit 35.7. She was noted to be hyponatremic with sodium 131. She was seen also with some renal insufficiency with BUN of 43 and creatinine of 1.3. She did have a glucose also at 231. She was also noted with a positive leukocyte esterase test. Currently the patient remains afebrile. She states that the pain subsequently has subsided on bilateral flank only pain 2 out of intensity nonradiating. We will evaluate her for the aformentiond issues Hospital Course This is a 51-year-old female with history of diabetes, this edema, cholelithiasis status post cholecystectomy, umbilical hernia, who came to [facility] due to reports of flank pain. Initially patient was transferred outside hospital due to insurance issues. It was reported that prior to her coming to the hospital she was having pain on bilateral flanks for 3 days duration. She also had some subjective fevers and chills. She also reported some dysuria and suspect hematuria. She initially went to [facility] and did have examination there with CT scan that did show her to have mild left hydroureteronephrosis traceable and a 5 x 4 mm calculus at the left ureterovesicular junction. Patient was with clinical picture of pyelonephritis and patient IV antibiotics. She was seen with E. coli. She did have good response from antimicrobials. For her bilateral hydronephrosis she was placed on IV hydration. She was also seen by urology. After review by urologist and reviewing new CT scan is noted that ureterovesicular junction stone may have passed. Was advised patient for TASSEL MAKER consultation. Of note patient was with uterine prolapse. After review by TASSEL MAKER is recommended for patient for outpatient follow-up for this issue. Patient denies any further pain or any other specific complaints concerning this. Patient was otherwise optimized medically. She was resumed on insulin for her diabetes. Incidentally we did abdominal imaging she was also found with liver cirrhosis. No active issues were noted and she was advised for outpatient follow-up with diesel electrician for which we did casement management involved to help her with follow-up. During the course of stay she did improve. The plan of care was discussed with the patient and patient did verbalize her understanding. On the day of discharge patient was in stable condition Discussed plan of care with Dr. Ellison Kensington Meds Active Scripts Amoxicillin/Potassium Clav (Amox-Clav 875-125 mg Tablet) 875-125 mg Tab, 1 TAB PO BID, #14 TAB Prov:ALVARO PETERS 06/17/17 Reported Medications Metformin* (Glucophage*) 500 Mg Tab, 250 MG PO WITH BREAKFAST DINNE, #30 TAB 06/10/17 Follow-up Plan HOME CARE INSTRUCTIONS: Special Diet: diabetic carb controlled FOLLOW UP/APPOINTMENTS Follow-up Plan 1. Follow-up with your primary care provider within a week 2. Here elevated primary care provider for CIVIL PROCESS SERVER referral 3. Follow up with Dr. Johanny Andrews in one week Primary Care Provider Care Physician No Primary Time spent on discharge: > 30 minutes Pending Labs Laboratory Tests Test 06/16/17 17:18 06/16/17 20:06 06/17/17 04:37 06/17/17 07:59 Bedside Glucose 150mg/dL (70-220) 128mg/dL (70-220) 178mg/dL (70-220) White Blood Count 5.010^3/ul (4.8-10.8) Red Blood Count 2.9810^6/ul (4.20-5.40) Hemoglobin 9.0g/dl (12.0-16.0) Hematocrit 28.3% (37.0-47.0) Mean Corpuscular Volume 95.0fl (82.0-101.0) Mean Corpuscular Hemoglobin 30.2pg (29.0-33.0) Mean Corpuscular Hemoglobin Concent 31.8g/dl (32.0-37.0) Red Cell Distribution Width 15.8% (11.5-14.5) Platelet Count 36471^3/UL (140-415) Mean Platelet Volume 11.0fl (7.4-10.4) Neutrophils % 59.6% (39.0-77.0) Lymphocytes % 32.4% (15.0-51.0) Monocytes % 5.2% (0.0-11.0) Eosinophils % 2.0% (0.0-7.0) Basophils % 0.2% (0.0-2.0) Nucleated Red Blood Cells % 0.0/100WBC (0.0-0.0) Neutrophils # 3.010^3/ul (1.6-7.5) Lymphocytes # 1.610^3/ul (0.8-2.9) Monocytes # 0.310^3/ul (0.3-0.9) Eosinophils # 0.110^3/ul (0.0-0.5) Basophils # 0.010^3/ul (0.0-0.1) Nucleated Red Blood Cells # 0.010^3/ul (0.0-0.0) Sodium Level 143mmol/L (135-144) Potassium Level 4.0mmol/L (3.5-5.1) Chloride Level 104mmol/L (97-110) Carbon Dioxide Level 26mmol/L (21-31) Anion Gap 17 (8-16) Blood Urea Nitrogen 7mg/dl (7-20) Creatinine 0.54mg/dl (0.44-1.00) Glucose Level 205mg/dl (70-220) Calcium Level 8.5mg/dl (8.4-10.2) Phosphorus Level 4.0mg/dl (2.5-4.9) Magnesium Level 1.9mg/dl (1.7-2.5) Total Bilirubin 0.2mg/dl (0.2-1.3) Direct Bilirubin 0.00mg/dl (0.00-0.20) Indirect Bilirubin 0.2mg/dl (0-1.1) Aspartate Amino Transf (AST/SGOT) 40IU/L (15-46) Alanine Aminotransferase (ALT/SGPT) 32IU/L (13-69) Alkaline Phosphatase 103IU/L (42-121) Ammonia 33umol/l (9-30) Total Protein 7.4g/dl (6.1-8.1) Albumin 3.0g/dl (3.3-4.9) Globulin 4.40g/dl (1.3-3.2) Albumin/Globulin Ratio 0.68 Test 06/17/17 12:03 Bedside Glucose 113mg/dL (70-220) ALVARO PETERS Jun 17, 2017 16:23
--- NOTE | 2017-06-18 09:44 | CONS ---
DATE OF ADMISSION: 06/10/2017 DATE OF CONSULTATION: 06/10/2017 REASON FOR CONSULTATION: Antibiotic management. HISTORY OF PRESENT ILLNESS: The patient is a 51-year-old female who is admitted with abdominal pain, which appears to be secondary to pyelonephritis. Her past problems include: 1. Adult-onset diabetes mellitus. 2. Dyslipidemia. 3. Cholelithiasis status post cholecystectomy. 4. Umbilical hernia. Patient came to the emergency room at [facility] with flank pain on the left side. She has had abdominal pain and bilateral flank pain for three days' duration with fever and subjective chills. She also had some dysuria and possibly hematuria. She went to [facility]. She had a CT scan of her abdomen and pelvis that showed mild left hydroureteronephrosis, traceable to 5 x 4-mm calculus at the left ureterovesicular junction. There is also mild perinephric inflammatory stranding of the left kidney. Additionally, tiny non-obstructing left lower pole renal calculus. She was seen also to have incidentally developed a nodular contour of the liver, consistent with possible cirrhosis, with hepatomegaly and portal hypertension. She had a stable left adrenal gland adenoma, as well as splenomegaly. She has an enlarging fat- containing left paracentral ventral hernia, measuring 7.7 x 6.5 cm. She has diverticulosis without diverticulitis. She complains of bilateral flank pain. She denies a history of recurrent UTIs. At [facility], she had a white count of 9.3, was anemic, with H and H of 12.3 and 35.7. She was hyponatremic with a sodium of 131. Her BUN and creatinine were 43 and 1.3, and her glucose was 231. She also had a positive leukocyte esterase test. On admission, white count 6.1, H and H 9.6 and 29.6, platelet count of 43,000. BUN and creatinine 33 and 0.97. Patient was started on ceftriaxone. PAST MEDICAL HISTORY: Operations none. Past medical history is as outlined. FAMILY HISTORY: Not contributory. SOCIAL HISTORY: She does not smoke, drink, or abuse drugs. ALLERGIES: NONE TO PENICILLIN, SULFA, OR FOODS. MEDICATION: Per chart. REVIEW OF SYSTEMS: Is as per HPI. PHYSICAL EXAMINATION: GENERAL: The patient is a well-developed, well-nourished female, alert, responsive, in no acute distress. VITAL SIGNS: Stable. She is afebrile. SKIN: Without generalized rash. HEENT: Within normal limits. NECK: Supple. Lymph nodes nonpalpable. CHEST: Decreased breath sounds at the bases. HEART: Without murmur or gallop. ABDOMEN: Soft. Nontender. She has an umbilical hernia noted. No organ or splenomegaly or masses. EXTREMITIES: Without cyanosis, clubbing, or edema. RECTAL: Deferred. GENITOURINARY: Deferred. NEUROLOGICAL: No focal neurological abnormalities. As noted, she has bilateral flank pain, left greater than right, which has subsequently subsided to a large extent. IMPRESSION AND PLAN: Patient presents with evidence of pyelonephritis and positive leukocyte esterase. She is an outpatient. She has a stone in the left ureterovesicular junction. We will continue her on ceftriaxone for the time being. She should be seen by Urology. I will dictate my findings to the hospitalist. Dictated By: Campbell Winter MD JD/jayesh/elio /Document#: [id number]
[2017-06-18 16:24] LABS: ANA SCREEN POSITIVE (NEGATIVE)
== END 2017-06-17 17:50 | disposition home or self-care (01) | DRG 872 ==
LOC: PP2 05:49 → OBSVTOIN 05:49 → INTOOBSV 05:49
PROVIDERS: ADMIT Internal Medicine; ATTEND Internal Medicine
DX: A41.9 Sepsis, unspecified organism (principal); N17.9 Acute kidney failure, unspecified; D69.6 Thrombocytopenia, unspecified; N11.1 Chronic obstructive pyelonephritis; E87.1 Hypo-osmolality and hyponatremia; R16.1 Splenomegaly, not elsewhere classified; N13.6 Pyonephrosis; K74.60 Unspecified cirrhosis of liver; E11.9 Type 2 diabetes mellitus without complications; N18.9 Chronic kidney disease, unspecified; E78.5 Hyperlipidemia, unspecified; K43.9 Ventral hernia without obstruction or gangrene; K57.90 Diverticulosis of intestine, part unspecified, without perforation or abscess without bleeding; N81.4 Uterovaginal prolapse, unspecified; B96.20 Unspecified Escherichia coli [E. coli] as the cause of diseases classified elsewhere
CPT/HCPCS: 74000; 74176; 76700; 76775; 76830; 76856; 80048; 80053; 80061; 80076; 82105; 82140; 82728; 82962; 83036; 83540; 83735; 84100; 84436; 84443; 84479; 85025; 85610; 85730; 86038; 86255; 86664; 86704; 86709; 86803; 87040; 87086; C9113; J1815; J2543; J3475; J3480; J7030

== ENCOUNTER 2018-07-23 22:19 | Emergency (ER) | END 2018-07-24 02:03 | disposition home or self-care (01) ==

== ENCOUNTER 2019-03-03 15:21 | Inpatient (IN) | payer BC ==
[~2019-03-03] VITALS: Ht 165.1 cm; Wt 63.2 kg
[~2019-03-03 15:21] MED LIST: AMOX1TAB10 PO; CIPR500T4 PO; METF-849 PO; TRAM50TA2 PO
[2019-03-03] MEDS ORDERED: SODIUM CHLORIDE 0.9% 1L BAG IV* STA (15:38)
[2019-03-03] MEDS ORDERED: KETOROLAC 30 MG INJ IV STA (15:55)
[2019-03-03] MEDS ORDERED: PIPER-TAZO 3.375 GM IV (PMX) 100 ML IVPB ONE (16:00)
[2019-03-03] MEDS ORDERED: IBUPROFEN 600 MG TAB PO ONE (16:00)
[2019-03-03] MEDS ORDERED: METF500T24 PO (16:47)
[2019-03-03] MEDS ORDERED: POTASSIUM CHLORIDE (SR) 20 MEQ TAB PO STA (17:41)
--- NOTE | 2019-03-03 18:59 | HP ---
Date/Time of Note Date/Time of Note DATE: 03/03/19 TIME: 18:51 Assessment/Plan VTE Prophylaxis Pharmacological prophylaxis: heparin Lines/Catheters IV Catheter Type (from Nrs): Saline Lock Assessment/Plan Hospital Course 52 yo female with h/o DMII, kidney stones, uterine prolapse who presents with sepsis from UTI Severe sepsis, lactic acidosis from pyelonephritis: - IVF given, trend lactate - Merrem coverage - Follow up cultures - CT A/P to assess for anatomic cause of infection given h/o kidney stones DMII: - Basal/bolus insulin Indirect hyperbilirubinemia: - Trend, may be result of infection, Gilbert's? Discharge when stable Result Diagram: 03/03/19 1544 03/03/19 1544 Results 24hrs Laboratory Tests Test 03/03/19 15:44 03/03/19 15:50 03/03/19 17:30 03/03/19 17:35 White Blood Count 5.1 # Red Blood Count 3.83 L Hemoglobin 11.8 L Hematocrit 35.7 L Mean Corpuscular 93.2 Volume Mean Corpuscular 30.8 Hemoglobin Mean Corpuscular 33.1 Hemoglobin Concen t Red Cell 16.4 H Distribution Width Platelet Count 41 #L Mean Platelet 10.7 H Volume Immature 0.200 Granulocytes % Neutrophils % 80.4 H Lymphocytes % 14.5 L Monocytes % 4.5 Eosinophils % 0.2 Basophils % 0.2 Nucleated Red 0.0 Blood Cells % Immature 0.010 Granulocytes # Neutrophils # 4.1 Lymphocytes # 0.7 L Monocytes # 0.2 L Eosinophils # 0.0 Basophils # 0.0 Nucleated Red 0.0 Blood Cells # Prothrombin Time 15.8 H Prothrombin Time 1.2 Ratio INR International 1.25 Normalized Ratio Activated 38.8 H Partial Thrombopl ast Time Sodium Level 140 Potassium Level 3.3 L Chloride Level 105 Carbon Dioxide 19 L Level Anion Gap 16 H Blood Urea 12 Nitrogen Creatinine 0.52 Est Glomerular > 60 Filtrat Rate mL/min Glucose Level 251 H Calcium Level 9.4 Total Bilirubin 3.0 H Direct Bilirubin 0.00 Indirect 3.0 H Bilirubin Aspartate Amino 44 Transf (AST/SGOT) Alanine 27 Aminotransferase (ALT/SGPT) Alkaline 101 Phosphatase Troponin I < 0.012 Total Protein 8.5 H Albumin 4.0 Globulin 4.50 H Albumin/Globulin 0.88 Ratio POC Venous 3.6 *H Lactate Urine Color YELLOW Urine Clarity SLIGHTLY CLOUDY A Urine pH 6.0 Urine Specific 1.008 [place] Urine Ketones NEGATIVE Urine Nitrite POSITIVE A Urine Bilirubin NEGATIVE Urine 1+ H Urobilinogen Urine Leukocyte 3+ H Esterase Urine Microscopic 8 H RBC Urine Microscopic 114 H WBC Urine Squamous FEW Epithelial Cells Urine Bacteria MODERATE Urine Mucus FEW A Urine Hemoglobin 2+ H Urine Glucose 3+ H Urine Total NEGATIVE Protein Bedside Urine pH 6.5 (LAB) Bedside Urine Trace H Protein (LAB) Bedside Urine 0.25% H Glucose (UA) Bedside Urine Negative Ketones (LAB) Bedside Urine 1+ H Blood Bedside Urine Positive H Nitrite (LAB) Bedside Urine 3+ H Leukocyte Esteras e (L Test 03/03/19 18:31 POC Venous 2.1 *H Lactate HPI/ROS Admit Date/Time Admit Date/Time Hx of Present Illness 53 yo female with h/o DMII, uterine prolapse, kidney stones presents with fever and malaise Patient in usual state of health until yesterday. Began to develop fever and malaise. Has progressed to back pain with lower pelvic pain. Mild dysuria. Severe lethargy. Came to ED where found to have marked fever. She has been given zosyn and NSAID, feels better. ROS Constitutional: no complaints, improved Eyes: no complaints ENT: no complaints Respiratory: no complaints Cardiovascular: no complaints Gastrointestinal: no complaints Genitourinary: no complaints Musculoskeletal: no complaints Skin: no complaints Neurologic: no complaints Endocrine: no complaints Lymphatic: no complaints Psychological: no complaints, nl mood/affect Immunologic: no complaints PMH/Family/Social Past Medical History Medical History: diabetes Medications Current Medications IV Flush (NS 3 ml) 3 ml PER PROTOCOL IV ; Start 03/03/19 at 19:00; Status UNV Hydromorphone HCl (Dilaudid) 0.5 mg Q4H PRN IV .SEVERE PAIN 7-10; Start 03/03/19 at 19:00; Status UNV Heparin Sodium (Porcine) (Heparin (5000 Units/1ml)) 5,000 unit Q12 SC ; Start 03/03/19 at 21:00; Status UNV Miscellaneous Information (* Miscellaneous Pharmacy Order) Discontinue current oral sulfonylur... ONCE ONCE XX ; Start 03/03/19 at 19:00; Stop 03/03/19 at 19:01; Status UNV Insulin Glargine (Lantus) 16 units DAILY@2000 SC ; Start 03/03/19 at 20:00; Status UNV Insulin Aspart (Novolog Insulin Pen) 4 unit WITH MEALS SC ; Start 03/04/19 at 08:00; Status UNV Miscellaneous Information (* Miscellaneous Pharmacy Order) HYPOGLYCEMIA PROTOCOL w... ONCE ONCE XX ; Start 03/03/19 at 19:00; Stop 03/03/19 at 19:01; Status UNV Insulin Aspart (Novolog Insulin Pen) NOVOLOG *MILD* ALGORITHM WITH MEALS BEDTIME SC ; Start 03/03/19 at 21:00; Status UNV Iohexol ((Gastrografin therapeutic equivalent)) Adult Formulation (Ple... GIVE PRIOR TO CT ONCE PO ; Start 03/03/19 at 19:00; Stop 03/03/19 at 19:01; Status UNV Piperacillin Sod/ Tazobactam Sod 100 ml @ 200 mls/hr Q8 IVPB ; Start 03/03/19 at 22:00; Status UNV Coded Allergies: acetaminophen (Verified Adverse Reaction, Severe, 03/03/19) nausea, vomiting, dizziness hydrocodone (Verified Adverse Reaction, Severe, 03/03/19) nausea, vomiting, dizziness morphine (Verified Adverse Reaction, Intermediate, 03/03/19) Past Surgical History Past Surgical Hx: no surgical history, cholecystectomy, other Family History Significant Family History: no pertinent family hx Social History Alcohol Use: none Smoking Status: Never smoker Drug Use: none Exam/Review of Systems Vital Signs Vitals Vital Signs Date Temp Pulse Resp B/P (MAP) Pulse Ox O2 O2 Flow FiO2 Time Delivery Rate 03/03/19 102.2 104 20 106/69 97 Nasal 17:46 (81) Cannula 03/03/19 2 16:01 Exam Constitutional: alert, oriented, well developed Psych: no complaints, nl mood/affect Head: normocephalic, atraumatic Eyes: nl conjunctiva, EOMI, nl lids, nl sclera, PERRL ENMT: nl external ears & nose, nl lips & teeth, nl nasal mucosa & septum Neck: supple, non-tender Respiratory: clear to auscultation, normal air movement Cardiovascular: regular rate and rhythm, nl pulses Gastrointestinal: soft, nl liver, spleen, non-tender Musculoskeletal: nl extremities to inspection Extremities: normal pulses Neurological: HAT BINDER II-XII intact, nl mental status, nl speech, nl strength Skin: nl turgor; No rash or lesions Lymph: nl lymph nodes SUZY PARK MD Mar 03, 2019 18:59
[2019-03-03] MEDS ORDERED: HYDROmorphONE 0.5 MG/0.5 ML SYG IV PRN (19:00)
[2019-03-03] MEDS ORDERED: IOHEXOL 14.3 MG(I)/ML (ADULT) BTL PO ONE (19:00)
[2019-03-03] MEDS ORDERED: NACL 0.9% 3 ML SYG IV SCH (19:00)
[2019-03-03 19:30] VITALS: PULSE 100
[2019-03-03] MEDS ORDERED: GLUCAGON 1 MG INJ IM PRN (19:30)
[2019-03-03] MEDS ORDERED: DEXTROSE 50% 50 ML SYRINGE IV PRN ×2 (19:30)
[2019-03-03] MEDS ORDERED: GLUCOSE GEL 15 GRAM TUBE PO PRN ×2 (19:30)
[2019-03-03] MEDS ORDERED: GLUCOSE GEL 15 GRAM TUBE BUCCAL PRN (19:30)
[2019-03-03] MEDS ORDERED: IOHEXOL 300MG/ML 150 ML BTL ONE (19:56)
[2019-03-03] MEDS ORDERED: SOD CHLORIDE 0.9% 100 ML ONE (19:56)
[2019-03-03 20:00] VITALS: PULSE 96; Ht 165.1 cm; Wt 63.2 kg
[2019-03-03] MEDS: INSULIN GLARGINE [LANTus] (100 UNITS/ML) SYG SC SCH (20:00)
[2019-03-03 20:30] VITALS: BP 97/53; PULSE 95; RESP 18
--- NOTE | 2019-03-03 20:48 | ERD ---
ER Documentation Chief Complaint Chief Complaint MAGALI FLANK PAIN WITH SUPRAPUBIC PAIN AND DYSURIA SINCE YESTERDAY HPI The patient is a 53-year-old female, presenting with fever, chills, lower back pain, painful urination for 1 day, had similar symptoms previously, no chest pain, dyspnea, diarrhea. She does not smoke nor drink Past medical history: Diabetes mellitus, anemia, uterine prolapse, cirrhosis Past surgical history: Right inguinal herniorrhaphy, cholecystectomy ROS All systems reviewed and are negative except as per history of present illness. Medications Home Meds Reported Medications Metformin Hcl* (Metformin Hcl*) 500 Mg Tablet, 500 MG PO WITH BREAKFAST DINNE, #60 TAB 03/03/19 Discontinued Reported Medications Metformin* (Glucophage*) 500 Mg Tab, 250 MG PO WITH BREAKFAST DINNE, #30 TAB 06/10/17 Discontinued Scripts Ciprofloxacin Hcl* (Ciprofloxacin Hcl*) 500 Mg Tablet, 500 MG PO BID for 7 Days, TAB Prov:CLEVELAND MENDOZA PA-C 07/24/18 Tramadol HCl (Tramadol HCl) 50 Mg Tablet, 50 MG PO Q6H PRN for PAIN, #20 TAB Prov:ALVARO PETERS 06/17/17 Amoxicillin/Potassium Clav (Amox-Clav 875-125 mg Tablet) 875-125 mg Tab, 1 TAB PO BID, #14 TAB Prov:ALVARO PETERS 06/17/17 Allergies Allergies: Coded Allergies: acetaminophen (Verified Adverse Reaction, Severe, 03/03/19) nausea, vomiting, dizziness hydrocodone (Verified Adverse Reaction, Severe, 03/03/19) nausea, vomiting, dizziness morphine (Verified Adverse Reaction, Intermediate, 03/03/19) PMhx/Soc History of Surgery: Yes (cholecystectomy, hernia repair) Anesthesia Reaction: No Hx Neurological Disorder: No Hx Respiratory Disorders: No Hx Cardiac Disorders: No Hx Psychiatric Problems: No Hx Miscellaneous Medical Probl: Yes (DM, ) Hx Alcohol Use: No Hx Substance Use: No Hx Tobacco Use: No Smoking Status: Never smoker Physical Exam Vitals Vital Signs Date Temp Pulse Resp B/P (MAP) Pulse Ox O2 O2 Flow FiO2 Time Delivery Rate 03/03/19 102.2 104 20 106/69 97 Nasal 17:46 (81) Cannula 03/03/19 113 28 127/77 94 Nasal 16:20 (94) Cannula 03/03/19 103.2 16:11 03/03/19 Nasal 2 16:01 Cannula 03/03/19 103.2 122 24 164/74 98 15:33 (104) Physical Exam Const: No acute distress. Head: Atraumatic. Eyes: Normal Conjunctiva. ENT: Normal External Ears, Nose and Mouth. Neck: Full range of motion. No meningismus. Resp: Clear to auscultation bilaterally. Cardio: Regular tachycardic. Abd: Soft, non distended, normal bowel sounds, non tender. Bilateral CVA tenderness Skin: No petechiae or rashes. Back: No midline or flank tenderness. Ext: No cyanosis, or edema. Neur: Awake and alert. No focal deficit Psych: Normal Mood and Affect. Result Diagram: 03/03/19 1544 03/03/19 1544 Results 24 hrs Laboratory Tests Test 03/03/19 15:44 03/03/19 15:50 03/03/19 17:30 03/03/19 17:35 White Blood Count 5.1 10^3/ul Red Blood Count 3.83 10^6/ul Hemoglobin 11.8 g/dl Hematocrit 35.7 % Mean Corpuscular 93.2 fl Volume Mean Corpuscular 30.8 pg Hemoglobin Mean Corpuscular 33.1 g/dl Hemoglobin Concen t Red Cell 16.4 % Distribution Width Platelet Count 41 10^3/UL Mean Platelet 10.7 fl Volume Immature 0.200 % Granulocytes % Neutrophils % 80.4 % Lymphocytes % 14.5 % Monocytes % 4.5 % Eosinophils % 0.2 % Basophils % 0.2 % Nucleated Red 0.0 /100WBC Blood Cells % Immature 0.010 10^3/ul Granulocytes # Neutrophils # 4.1 10^3/ul Lymphocytes # 0.7 10^3/ul Monocytes # 0.2 10^3/ul Eosinophils # 0.0 10^3/ul Basophils # 0.0 10^3/ul Nucleated Red 0.0 10^3/ul Blood Cells # Prothrombin Time 15.8 Sec Prothrombin Time 1.2 Ratio INR International 1.25 Normalized Ratio Activated 38.8 Sec Partial Thrombopl ast Time Sodium Level 140 mmol/L Potassium Level 3.3 mmol/L Chloride Level 105 mmol/L Carbon Dioxide 19 mmol/L Level Anion Gap 16 Blood Urea 12 mg/dl Nitrogen Creatinine 0.52 mg/dl Est Glomerular > 60 mL/min Filtrat Rate mL/min Glucose Level 251 mg/dl Calcium Level 9.4 mg/dl Total Bilirubin 3.0 mg/dl Direct Bilirubin 0.00 mg/dl Indirect 3.0 mg/dl Bilirubin Aspartate Amino 44 IU/L Transf (AST/SGOT) Alanine 27 IU/L Aminotransferase (ALT/SGPT) Alkaline 101 IU/L Phosphatase Troponin I < 0.012 ng/ml Total Protein 8.5 g/dl Albumin 4.0 g/dl Globulin 4.50 g/dl Albumin/Globulin 0.88 Ratio POC Venous 3.6 mmol/L Lactate Urine Color YELLOW Urine Clarity SLIGHTLY CLOUDY Urine pH 6.0 Urine Specific 1.008 [place] Urine Ketones NEGATIVE mg/dL Urine Nitrite POSITIVE mg/dL Urine Bilirubin NEGATIVE mg/dL Urine 1+ mg/dL Urobilinogen Urine Leukocyte 3+ Osiris/ul Esterase Urine Microscopic 8 /HPF RBC Urine Microscopic 114 /HPF WBC Urine Squamous FEW /HPF Epithelial Cells Urine Bacteria MODERATE /HPF Urine Mucus FEW /HPF Urine Hemoglobin 2+ mg/dL Urine Glucose 3+ mg/dL Urine Total NEGATIVE mg/dl Protein Bedside Urine pH 6.5 (LAB) Bedside Urine Trace Protein (LAB) Bedside Urine 0.25% Glucose (UA) Bedside Urine Negative Ketones (LAB) Bedside Urine 1+ Blood Bedside Urine Positive Nitrite (LAB) Bedside Urine 3+ Leukocyte Esteras e (L Current Medications Medications Dose Sig/Stef Start Time Status Last (Trade) Ordered Route PRN Stop Time Admin Dose Reason Admin Sodium 1,900 ml BOLUS OVER 2 03/03/19 DC 03/03/19 Chloride HOURS STAT 15:38 15:58 (NS) IV* 03/03/19 15:39 Ibuprofen 600 mg ONCE ONCE 03/03/19 DC 03/03/19 (Motrin) PO 16:00 16:11 03/03/19 16:01 Ketorolac 30 mg ONCE STAT 03/03/19 DC 03/03/19 Tromethamine IV 15:55 16:11 (Toradol) 03/03/19 15:58 Piperacillin 100 ml @ ONCE ONCE 03/03/19 DC 03/03/19 Sod/ 200 mls/hr IVPB 16:00 16:10 Tazobactam 03/03/19 16:29 Sod Potassium 40 meq ONCE STAT 03/03/19 DC 03/03/19 Chloride PO 17:41 18:43 (Klor-Con 20) 03/03/19 17:42 Procedures/MDM [place] [address] Radiology Main Line: [phone] DIAGNOSTIC IMAGING REPORT Patient: GUNJAN PIERCE : 1965 Age: 53 Sex: F MR #: [id number] DOS: 03/03/19 1538 Ordering MD: NICK MATHUR MD Location: E/R Room/Bed: PROCEDURE: XR Chest. CLINICAL INDICATION: Sepsis .. Dyspnea TECHNIQUE: Single frontal chest x-ray. COMPARISON: None. FINDINGS: The lungs are clear of acute infiltrates, edema, effusions, or masses.. The cardiomediastinal silhouette is unremarkable. The osseous structures are intact. IMPRESSION: No acute cardiopulmonary disease. RPTAT: GG .Stefano Hanson MD, MD Date Time Electronically viewed and signed by .Stefano Hanson MD, MD on 03/03/2019 16:33 .L/ CC: NICK MATHUR MD [id number] EKG: Read by emergency physician Rate/Rhythm: Sinus tachycardia 124 beats/min QRS, ST, T-waves: No ST elevation, no T inversion, RWA, artifacts Impression: Abnormal EKG MEDICAL MAKING DECISION: The patient is a 53-year-old female, presenting with acute severe sepsis, acute pyelonephritis, acute thrombocytopenia, acute hypokalemia. She was treated with normal saline 30 mm/kg IV, Zosyn IV for acute severe sepsis due to acute bilateral pyelonephritis, Motrin for fever and Toradol 30 mg IV for pain and potassium chloride 40 mEq p.o. for acute hypokalemia with good response. The differential diagnoses considered include but are not limited to choledocholithiasis, cholangitis, pancreatitis, hepatitis, gastritis, peptic ulcer disease, gastric ulcer, appendicitis, cystitis, diverticulitis, partial small bowel obstruction. MDM: Patient's infectious symptoms have not stabilized and the patient is at risk of rapid decompensation. The patient will be admitted for careful hydration, antibiotic therapy, and infectious source control. SEVERE SEPSIS CRITERIA: Infectious source: pyelopnephritis End organ damage indicated by: [Lactate > 2.0 mmol/L SEPSIS MANAGEMENT Time of recognition of severe sepsis: 4p 3 HOUR BUNDLE Blood cultures x 2 before broad-spectrum antibiotics: [Yes] 30 ml/kg NS bolus [Completed] Initial lactate []3.6 Repeat lactate Pending SEPTIC SHOCK ASSESSMENT: [No] lactic acid > 4.0 [No] Persistent hypotension (SBP < 90 or 40 mmHg drop, MAP < 65) despite 30 mL/kg IV fluid bolus CRITICAL CARE Critical care time [35] minutes Emergent fluid management while maintaining close respiratory support. Provision of immediate and broad-spectrum antibiotic therapy. Simultaneous assessment for possible sources in order to direct targeted therapy. Consideration for invasive and chemical support to prevent cardiopulmonary collapse. Critical care time is independent of procedures performed. Departure Diagnosis: Primary Impression: Severe sepsis Additional Impressions: Pyelonephritis Anemia Thrombocytopenia Hypokalemia Condition: Stable Comments I discussed the findings with the patient. I discussed the patient with Dr Adam at 5:45p , who was made aware of the lab, the treatment, the patient condition. The patient is admitted to Tel Disclaimer: Inadvertent spelling and grammatical errors are likely due to EHR/dictation software use and do not reflect on the overall quality of patient care. Also, please note that the electronic time recorded on this note does not necessarily reflect the actual time of the patient encounter. NICK MATHUR MD Mar 03, 2019 20:48
[2019-03-03] MEDS: INSULIN ASPART [NOVOLOG] 3 ML PEN SC SCH (21:00)
[2019-03-03] MEDS: MEROPENEM 1 GM/50ML(PMX) 50 ML IVPB SCH (21:37)
[2019-03-03] MEDS: HEPARIN 5,000 UNIT/1 ML VIAL SC SCH (21:45)
[2019-03-03] MEDS ORDERED: PIPER-TAZO 3.375 GM IV (PMX) 100 ML IVPB SCH (22:00)
[2019-03-04] VITALS (12 sets, daily range): BP systolic 98–131; BP diastolic 49–77; PULSE 82–109; RESP 16–20
[2019-03-04] MEDS: MEROPENEM 1 GM/50ML(PMX) 50 ML IVPB SCH ×3 (05:29→21:26)
[2019-03-04] MEDS: INSULIN ASPART [NOVOLOG] 3 ML PEN SC SCH ×7 (07:46→20:31)
[2019-03-04] MEDS ORDERED: KETOROLAC 15 MG INJ IV ONE (08:00)
[2019-03-04] MEDS: HEPARIN 5,000 UNIT/1 ML VIAL SC SCH ×2 (08:14→20:26)
--- NOTE | 2019-03-04 08:37 | CONS ---
Assessment/Plan Assessment/Plan Hospital Course (Demo Recall) 53-year-old female presented to the emergency room with bilateral flank pain, back pain, fever and malaise. She underwent a CT scan of the abdomen and pelvis and that showed bilateral hydronephrosis. A urological consultation was therefore requested. Patient does have a history of kidney stones in the past but on the CT scan there is no stones at the present. The patient is known to me from before and she does have complete genital prolapse with her uterus outside of her vagina and one could see even the cervix. And that causes angulation of the ureters and the hydronephrosis. The patient will need a [employer] consultation for hysterectomy. She has had appointments to see a air director but she said they canceled her appointment 2 times. Patient does have positive blood cultures with gram-negative rods. Most likely this is coming from her urine. Recommend to continue the intravenous antibiotic and obtain a [employer] consultation. Consultation Date/Type/Reason Admit Date/Time March 03, 2019 Date of Consultation: Mar 04, 2019 Type of Consult Urology Reason for Consultation Bilateral hydronephrosis Requesting Provider: SUZY PARK MD Date/Time of Note DATE: 03/04/19 TIME: 08:26 Hx of Present Illness 53-year-old female presented to the emergency room with bilateral flank pain, back pain, fever and malaise. She underwent a CT scan of the abdomen and pelvis and that showed bilateral hydronephrosis. A urological consultation was therefore requested. Patient does have a history of kidney stones in the past but on the CT scan there is no stones at the present. The patient is known to me from before and she does have complete genital prolapse with her uterus outside of her vagina and one could see even the cervix. And that causes angulation of the ureters and the hydronephrosis. Constitutional: febrile (Temperature 102.5) Eyes: no complaints ENT: no complaints Respiratory: no complaints Cardiovascular: no complaints Gastrointestinal: no complaints Genitourinary: dysuria, other (Complete genital prolapse) Musculoskeletal: no complaints Skin: no complaints Neurologic: no complaints Endocrine: other (History of diabetes) Lymphatic: no complaints Psychological: no complaints Past Medical History Medical History: diabetes Home Meds Reported Medications Metformin Hcl* (Metformin Hcl*) 500 Mg Tablet, 500 MG PO WITH BREAKFAST DINNE, #60 TAB 4/15/19 Discontinued Reported Medications Metformin* (Glucophage*) 500 Mg Tab, 250 MG PO WITH BREAKFAST DINNE, #30 TAB 06/10/17 Discontinued Scripts Ciprofloxacin Hcl* (Ciprofloxacin Hcl*) 500 Mg Tablet, 500 MG PO BID for 7 Days, TAB Prov:CLEVELAND MENDOZA PA-C 07/24/18 Tramadol HCl (Tramadol HCl) 50 Mg Tablet, 50 MG PO Q6H PRN for PAIN, #20 TAB Prov:ALVARO PETERS 06/17/17 Amoxicillin/Potassium Clav (Amox-Clav 875-125 mg Tablet) 875-125 mg Tab, 1 TAB PO BID, #14 TAB Prov:REGMIRIAMRALVARO 06/17/17 Medications Current Medications IV Flush (NS 3 ml) 3 ml PER PROTOCOL IV ; Start 03/03/19 at 19:00 Hydromorphone HCl (Dilaudid) 0.5 mg Q4H PRN IV .SEVERE PAIN 7-10; Start 03/03/19 at 19:00 Heparin Sodium (Porcine) (Heparin (5000 Units/1ml)) 5,000 unit Q12 SC Last administered on 03/04/19at 08:14; Admin Dose 5,000 UNIT; Start 03/03/19 at 21:00 Insulin Glargine (Lantus) 16 units DAILY@2000 SC Last administered on 03/03/19at 20:00; Admin Dose 16 UNITS; Start 03/03/19 at 20:00 Insulin Aspart (Novolog Insulin Pen) 4 unit WITH MEALS SC Last administered on 03/04/19at 07:48; Admin Dose 4 UNIT; Start 03/04/19 at 07:55 Insulin Aspart (Novolog Insulin Pen) NOVOLOG *MILD* ALGORITHM WITH MEALS BEDTIME SC ; Start 03/03/19 at 21:00 Meropenem/Sodium Chloride 50 ml @ 100 mls/hr Q8 IVPB Last administered on 03/04/19at 05:29; Admin Dose 100 MLS/HR; Start 03/03/19 at 22:00 Miscellaneous Information 1 ea NOTE XX ; Start 03/03/19 at 19:30 Glucose (Glutose) 15 gm Q15M PRN PO DECREASED GLUCOSE; Start 03/03/19 at 19:30 Glucose (Glutose) 22.5 gm Q15M PRN PO DECREASED GLUCOSE; Start 03/03/19 at 19:30 Dextrose (D50w Syringe) 25 ml Q15M PRN IV DECREASED GLUCOSE; Start 03/03/19 at 19:30 Dextrose (D50w Syringe) 50 ml Q15M PRN IV DECREASED GLUCOSE; Start 03/03/19 at 19:30 Glucagon (Glucagen) 1 mg Q15M PRN IM DECREASED GLUCOSE; Start 03/03/19 at 19:30 Glucose (Glutose) 15 gm Q15M PRN BUCCAL DECREASED GLUCOSE; Start 03/03/19 at 19:30 Allergies: Coded Allergies: acetaminophen (Verified Adverse Reaction, Severe, 03/03/19) nausea, vomiting, dizziness hydrocodone (Verified Adverse Reaction, Severe, 03/03/19) nausea, vomiting, dizziness morphine (Verified Adverse Reaction, Intermediate, 03/03/19) Past Surgical History Past Surgical Hx: cholecystectomy, other (Incisional hernia repair, ) Social History Alcohol Use: none Smoking Status: Never smoker Drug Use: none Exam/Review of Systems Exam Vitals Vital Signs Date Temp Pulse Resp B/P (MAP) Pulse Ox O2 O2 Flow FiO2 Time Delivery Rate 03/04/19 100.0 90 18 110/67 97 07:42 (81) 03/03/19 Nasal 17:46 Cannula 03/03/19 2 16:01 Intake and Output 03/03/19 03/03/19 03/04/19 1414:59 22:59 06:59 IntakeIntake Total 1400 ml OutputOutput Total 904 ml BalanceBalance 496 ml Constitutional: alert, oriented Psych: no complaints Head: normocephalic Eyes: nl conjunctiva ENMT: nl external ears & nose Neck: supple Respiratory: normal air movement; No wheezing Cardiovascular: regular rate and rhythm; No jugular venous distention (JVD) Gastrointestinal: soft, surgical scars Genitourinary - Female: other (Pelvic exam: Complete uterine prolapse with uterus and cervix outside of her vagina.) Extremities: No calf tenderness, No edema Neurological: nl mental status Results Result Diagram: 03/03/19 1544 03/03/19 1544 Results 24hrs Laboratory Tests Test 03/03/19 15:44 03/03/19 15:50 03/03/19 17:30 03/03/19 17:35 White Blood Count 5.1 # Red Blood Count 3.83 L Hemoglobin 11.8 L Hematocrit 35.7 L Mean Corpuscular 93.2 Volume Mean Corpuscular 30.8 Hemoglobin Mean Corpuscular 33.1 Hemoglobin Concen t Red Cell 16.4 H Distribution Width Platelet Count 41 #L Mean Platelet 10.7 H Volume Immature 0.200 Granulocytes % Neutrophils % 80.4 H Lymphocytes % 14.5 L Monocytes % 4.5 Eosinophils % 0.2 Basophils % 0.2 Nucleated Red 0.0 Blood Cells % Immature 0.010 Granulocytes # Neutrophils # 4.1 Lymphocytes # 0.7 L Monocytes # 0.2 L Eosinophils # 0.0 Basophils # 0.0 Nucleated Red 0.0 Blood Cells # Prothrombin Time 15.8 H Prothrombin Time 1.2 Ratio INR International 1.25 Normalized Ratio Activated 38.8 H Partial Thrombopl ast Time Sodium Level 140 Potassium Level 3.3 L Chloride Level 105 Carbon Dioxide 19 L Level Anion Gap 16 H Blood Urea 12 Nitrogen Creatinine 0.52 Est Glomerular > 60 Filtrat Rate mL/min Glucose Level 251 H Calcium Level 9.4 Total Bilirubin 3.0 H Direct Bilirubin 0.00 Indirect 3.0 H Bilirubin Aspartate Amino 44 Transf (AST/SGOT) Alanine 27 Aminotransferase (ALT/SGPT) Alkaline 101 Phosphatase Troponin I < 0.012 Total Protein 8.5 H Albumin 4.0 Globulin 4.50 H Albumin/Globulin 0.88 Ratio POC Venous 3.6 *H Lactate Urine Color YELLOW Urine Clarity SLIGHTLY CLOUDY A Urine pH 6.0 Urine Specific 1.008 [place] Urine Ketones NEGATIVE Urine Nitrite POSITIVE A Urine Bilirubin NEGATIVE Urine 1+ H Urobilinogen Urine Leukocyte 3+ H Esterase Urine Microscopic 8 H RBC Urine Microscopic 114 H WBC Urine Squamous FEW Epithelial Cells Urine Bacteria MODERATE Urine Mucus FEW A Urine Hemoglobin 2+ H Urine Glucose 3+ H Urine Total NEGATIVE Protein Bedside Urine pH 6.5 (LAB) Bedside Urine Trace H Protein (LAB) Bedside Urine 0.25% H Glucose (UA) Bedside Urine Negative Ketones (LAB) Bedside Urine 1+ H Blood Bedside Urine Positive H Nitrite (LAB) Bedside Urine 3+ H Leukocyte Esteras e (L Test 03/03/19 18:31 03/03/19 20:04 03/03/19 21:36 03/04/19 07:45 POC Venous 2.1 *H Lactate Lactic Acid Level 1.5 Bedside Glucose [address] scan of the abdomen and pelvis: 1. Cirrhotic liver with portal hypertension and splenomegaly. Small gastroesophageal varices are identified. 2. 1.6 cm left adrenal nodule, unchanged. Probable adenoma. 3. Bilateral hydronephrosis and hydroureter to the level of the ureterovesicle junction. Findings unchanged from 07/27/2018. 4. At least 3 anterior abdominal wall hernias containing fat. Surgical related changes anterior abdominal wall mid pelvis level, stable. 5. Small cyst at the level of the splenic hilum, slightly larger than on the 2018 exam. 6. 1.4 cm Bartholin cyst, decreased in size from 2018 (1.9 cm). 7. Small bilateral fat filled inguinal hernias. Medications Medication Current Medications IV Flush (NS 3 ml) 3 ml PER PROTOCOL IV ; Start 03/03/19 at 19:00 Hydromorphone HCl (Dilaudid) 0.5 mg Q4H PRN IV .SEVERE PAIN 7-10; Start 03/03/19 at 19:00 Heparin Sodium (Porcine) (Heparin (5000 Units/1ml)) 5,000 unit Q12 SC Last administered on 03/04/19at 08:14; Admin Dose 5,000 UNIT; Start 03/03/19 at 21:00 Insulin Glargine (Lantus) 16 units DAILY@2000 SC Last administered on 03/03/19at 20:00; Admin Dose 16 UNITS; Start 03/03/19 at 20:00 Insulin Aspart (Novolog Insulin Pen) 4 unit WITH MEALS SC Last administered on 03/04/19at 07:48; Admin Dose 4 UNIT; Start 03/04/19 at 07:55 Insulin Aspart (Novolog Insulin Pen) NOVOLOG *MILD* ALGORITHM WITH MEALS BEDTIME SC ; Start 03/03/19 at 21:00 Meropenem/Sodium Chloride 50 ml @ 100 mls/hr Q8 IVPB Last administered on 03/04/19at 05:29; Admin Dose 100 MLS/HR; Start 03/03/19 at 22:00 Miscellaneous Information 1 ea NOTE XX ; Start 03/03/19 at 19:30 Glucose (Glutose) 15 gm Q15M PRN PO DECREASED GLUCOSE; Start 03/03/19 at 19:30 Glucose (Glutose) 22.5 gm Q15M PRN PO DECREASED GLUCOSE; Start 03/03/19 at 19:30 Dextrose (D50w Syringe) 25 ml Q15M PRN IV DECREASED GLUCOSE; Start 03/03/19 at 19:30 Dextrose (D50w Syringe) 50 ml Q15M PRN IV DECREASED GLUCOSE; Start 03/03/19 at 19:30 Glucagon (Glucagen) 1 mg Q15M PRN IM DECREASED GLUCOSE; Start 03/03/19 at 19:30 Glucose (Glutose) 15 gm Q15M PRN BUCCAL DECREASED GLUCOSE; Start 03/03/19 at 19:30 PIERO BAIG MD Mar 04, 2019 08:37
--- NOTE | 2019-03-04 13:21 | PN ---
Date/Time of Note Date/Time of Note DATE: 03/04/19 TIME: 13:19 Assessment/Plan VTE Prophylaxis Risk score (from Ns)>0 risk: 2 SCD applied (from Ns): Yes Pharmacological prophylaxis: heparin Lines/Catheters IV Catheter Type (from Nrs): Saline Lock Urinary Cath still in place: No Assessment/Plan Hospital Course EXAM Well appearing no distress Nontoxic AoX3 RRR CTAB Soft nt nd Uterine prolapse No edema 52 yo female with h/o cirrhosis, DMII, kidney stones, uterine prolapse who pres ents with sepsis from UTI Severe sepsis, lactic acidosis from pyelonephritis, bacteremia - Continue Merrem coverage - Follow up cultures Hydronephrosis: - From uterine prolapse. Appreciate consult by Dr Rodrigues. Patient needs hysterectomy. 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 Will get viral serologies. Currently compensated. Needs endoscopic surveillance at some point DMII: - Basal/bolus insulin Discharge when stable Result Diagram: 03/04/19 0713 03/04/19 0713 Results 24hrs Laboratory Tests Test 03/03/19 15:44 03/03/19 15:50 03/03/19 17:30 03/03/19 17:35 White Blood Count 5.1 # Red Blood Count 3.83 L Hemoglobin 11.8 L Hematocrit 35.7 L Mean Corpuscular 93.2 Volume Mean Corpuscular 30.8 Hemoglobin Mean Corpuscular 33.1 Hemoglobin Concen t Red Cell 16.4 H Distribution Width Platelet Count 41 #L Mean Platelet 10.7 H Volume Immature 0.200 Granulocytes % Neutrophils % 80.4 H Lymphocytes % 14.5 L Monocytes % 4.5 Eosinophils % 0.2 Basophils % 0.2 Nucleated Red 0.0 Blood Cells % Immature 0.010 Granulocytes # Neutrophils # 4.1 Lymphocytes # 0.7 L Monocytes # 0.2 L Eosinophils # 0.0 Basophils # 0.0 Nucleated Red 0.0 Blood Cells # Prothrombin Time 15.8 H Prothrombin Time 1.2 Ratio INR International 1.25 Normalized Ratio Activated 38.8 H Partial Thrombopl ast Time Sodium Level 140 Potassium Level 3.3 L Chloride Level 105 Carbon Dioxide 19 L Level Anion Gap 16 H Blood Urea 12 Nitrogen Creatinine 0.52 Est Glomerular > 60 Filtrat Rate mL/min Glucose Level 251 H Calcium Level 9.4 Total Bilirubin 3.0 H Direct Bilirubin 0.00 Indirect 3.0 H Bilirubin Aspartate Amino 44 Transf (AST/SGOT) Alanine 27 Aminotransferase (ALT/SGPT) Alkaline 101 Phosphatase Troponin I < 0.012 Total Protein 8.5 H Albumin 4.0 Globulin 4.50 H Albumin/Globulin 0.88 Ratio POC Venous 3.6 *H Lactate Urine Color YELLOW Urine Clarity SLIGHTLY CLOUDY A Urine pH 6.0 Urine Specific 1.008 [place] Urine Ketones NEGATIVE Urine Nitrite POSITIVE A Urine Bilirubin NEGATIVE Urine 1+ H Urobilinogen Urine Leukocyte 3+ H Esterase Urine Microscopic 8 H RBC Urine Microscopic 114 H WBC Urine Squamous FEW Epithelial Cells Urine Bacteria MODERATE Urine Mucus FEW A Urine Hemoglobin 2+ H Urine Glucose 3+ H Urine Total NEGATIVE Protein Bedside Urine pH 6.5 (LAB) Bedside Urine Trace H Protein (LAB) Bedside Urine 0.25% H Glucose (UA) Bedside Urine Negative Ketones (LAB) Bedside Urine 1+ H Blood Bedside Urine Positive H Nitrite (LAB) Bedside Urine 3+ H Leukocyte Esteras e (L Test 03/03/19 18:31 03/03/19 20:04 03/03/19 21:36 03/04/19 07:13 POC Venous 2.1 *H Lactate Lactic Acid Level 1.5 Bedside Glucose 127 White Blood Count 6.0 Red Blood Count 3.17 L Hemoglobin 9.6 L Hematocrit 29.9 L Mean Corpuscular 94.3 Volume Mean Corpuscular 30.3 Hemoglobin Mean Corpuscular 32.1 Hemoglobin Concen t Red Cell 16.5 H Distribution Width Platelet Count 34 L Mean Platelet 12.3 H Volume Immature 0.300 Granulocytes % Neutrophils % 70.2 Lymphocytes % 21.4 Monocytes % 7.3 Eosinophils % 0.5 Basophils % 0.3 Nucleated Red 0.0 Blood Cells % Immature 0.020 Granulocytes # Neutrophils # 4.2 Lymphocytes # 1.3 Monocytes # 0.4 Eosinophils # 0.0 Basophils # 0.0 Nucleated Red 0.0 Blood Cells # Sodium Level 140 Potassium Level 3.1 L Chloride Level 111 H Carbon Dioxide 18 L Level Anion Gap 11 Blood Urea 11 Nitrogen Creatinine 0.47 Est Glomerular > 60 Filtrat Rate mL/min Glucose Level 127 # Hemoglobin A1c 5.7 Calcium Level 8.1 L Total Bilirubin 3.5 H Direct Bilirubin 0.00 Indirect 3.5 H Bilirubin Aspartate Amino 30 Transf (AST/SGOT) Alanine 27 Aminotransferase (ALT/SGPT) Alkaline 68 Phosphatase Total Protein 6.9 # Albumin 3.0 #L Globulin 3.90 H Albumin/Globulin 0.76 Ratio Test 03/04/19 07:45 03/04/19 11:26 Bedside Glucose 124 150 Subjective 24 Hr Interval Summary Free Text/Dictation Symptoms improving BC are positive Exam/Review of Systems Exam Vitals Vital Signs Date Temp Pulse Resp B/P (MAP) Pulse Ox O2 O2 Flow FiO2 Time Delivery Rate 03/04/19 86 12:16 03/04/19 99.0 18 99/49 (66) 98 11:27 03/03/19 Nasal 17:46 Cannula 03/03/19 2 16:01 Intake and Output 03/03/19 03/03/19 03/04/19 1515:00 23:00 07:00 IntakeIntake Total 1400 ml OutputOutput Total 904 ml BalanceBalance 496 ml Results Results 24hrs Laboratory Tests Test 03/03/19 15:44 03/03/19 15:50 03/03/19 17:30 03/03/19 17:35 White Blood Count 5.1 # Red Blood Count 3.83 L Hemoglobin 11.8 L Hematocrit 35.7 L Mean Corpuscular 93.2 Volume Mean Corpuscular 30.8 Hemoglobin Mean Corpuscular 33.1 Hemoglobin Concen t Red Cell 16.4 H Distribution Width Platelet Count 41 #L Mean Platelet 10.7 H Volume Immature 0.200 Granulocytes % Neutrophils % 80.4 H Lymphocytes % 14.5 L Monocytes % 4.5 Eosinophils % 0.2 Basophils % 0.2 Nucleated Red 0.0 Blood Cells % Immature 0.010 Granulocytes # Neutrophils # 4.1 Lymphocytes # 0.7 L Monocytes # 0.2 L Eosinophils # 0.0 Basophils # 0.0 Nucleated Red 0.0 Blood Cells # Prothrombin Time 15.8 H Prothrombin Time 1.2 Ratio INR International 1.25 Normalized Ratio Activated 38.8 H Partial Thrombopl ast Time Sodium Level 140 Potassium Level 3.3 L Chloride Level 105 Carbon Dioxide 19 L Level Anion Gap 16 H Blood Urea 12 Nitrogen Creatinine 0.52 Est Glomerular > 60 Filtrat Rate mL/min Glucose Level 251 H Calcium Level 9.4 Total Bilirubin 3.0 H Direct Bilirubin 0.00 Indirect 3.0 H Bilirubin Aspartate Amino 44 Transf (AST/SGOT) Alanine 27 Aminotransferase (ALT/SGPT) Alkaline 101 Phosphatase Troponin I < 0.012 Total Protein 8.5 H Albumin 4.0 Globulin 4.50 H Albumin/Globulin 0.88 Ratio POC Venous 3.6 *H Lactate Urine Color YELLOW Urine Clarity SLIGHTLY CLOUDY A Urine pH 6.0 Urine Specific 1.008 [place] Urine Ketones NEGATIVE Urine Nitrite POSITIVE A Urine Bilirubin NEGATIVE Urine 1+ H Urobilinogen Urine Leukocyte 3+ H Esterase Urine Microscopic 8 H RBC Urine Microscopic 114 H WBC Urine Squamous FEW Epithelial Cells Urine Bacteria MODERATE Urine Mucus FEW A Urine Hemoglobin 2+ H Urine Glucose 3+ H Urine Total NEGATIVE Protein Bedside Urine pH 6.5 (LAB) Bedside Urine Trace H Protein (LAB) Bedside Urine 0.25% H Glucose (UA) Bedside Urine Negative Ketones (LAB) Bedside Urine 1+ H Blood Bedside Urine Positive H Nitrite (LAB) Bedside Urine 3+ H Leukocyte Esteras e (L Test 03/03/19 18:31 03/03/19 20:04 03/03/19 21:36 03/04/19 07:13 POC Venous 2.1 *H Lactate Lactic Acid Level 1.5 Bedside Glucose 127 White Blood Count 6.0 Red Blood Count 3.17 L Hemoglobin 9.6 L Hematocrit 29.9 L Mean Corpuscular 94.3 Volume Mean Corpuscular 30.3 Hemoglobin Mean Corpuscular 32.1 Hemoglobin Concen t Red Cell 16.5 H Distribution Width Platelet Count 34 L Mean Platelet 12.3 H Volume Immature 0.300 Granulocytes % Neutrophils % 70.2 Lymphocytes % 21.4 Monocytes % 7.3 Eosinophils % 0.5 Basophils % 0.3 Nucleated Red 0.0 Blood Cells % Immature 0.020 Granulocytes # Neutrophils # 4.2 Lymphocytes # 1.3 Monocytes # 0.4 Eosinophils # 0.0 Basophils # 0.0 Nucleated Red 0.0 Blood Cells # Sodium Level 140 Potassium Level 3.1 L Chloride Level 111 H Carbon Dioxide 18 L Level Anion Gap 11 Blood Urea 11 Nitrogen Creatinine 0.47 Est Glomerular > 60 Filtrat Rate mL/min Glucose Level 127 # Hemoglobin A1c 5.7 Calcium Level 8.1 L Total Bilirubin 3.5 H Direct Bilirubin 0.00 Indirect 3.5 H Bilirubin Aspartate Amino 30 Transf (AST/SGOT) Alanine 27 Aminotransferase (ALT/SGPT) Alkaline 68 Phosphatase Total Protein 6.9 # Albumin 3.0 #L Globulin 3.90 H Albumin/Globulin 0.76 Ratio Test 03/04/19 07:45 03/04/19 11:26 Bedside Glucose 124 150 Medications Medication Current Medications IV Flush (NS 3 ml) 3 ml PER PROTOCOL IV ; Start 03/03/19 at 19:00 Hydromorphone HCl (Dilaudid) 0.5 mg Q4H PRN IV .SEVERE PAIN 7-10; Start 03/03/19 at 19:00 Heparin Sodium (Porcine) (Heparin (5000 Units/1ml)) 5,000 unit Q12 SC Last administered on 03/04/19at 08:14; Admin Dose 5,000 UNIT; Start 03/03/19 at 21:00 Insulin Glargine (Lantus) 16 units DAILY@2000 SC Last administered on 03/03/19at 20:00; Admin Dose 16 UNITS; Start 03/03/19 at 20:00 Insulin Aspart (Novolog Insulin Pen) 4 unit WITH MEALS SC Last administered on 03/04/19 11:29; Admin Dose 4 UNIT; Start 03/04/19 at 07:55 Insulin Aspart (Novolog Insulin Pen) NOVOLOG *MILD* ALGORITHM WITH MEALS BEDTIME SC Last administered on 03/04/19at 11:29; Admin Dose 1 UNIT; Start 03/03/19 at 21:00 Meropenem/Sodium Chloride 50 ml @ 100 mls/hr Q8 IVPB Last administered on 03/04/19 05:29; Admin Dose 100 MLS/HR; Start 03/03/19 at 22:00 Miscellaneous Information 1 ea NOTE XX ; Start 03/03/19 at 19:30 Glucose (Glutose) 15 gm Q15M PRN PO DECREASED GLUCOSE; Start 03/03/19 at 19:30 Glucose (Glutose) 22.5 gm Q15M PRN PO DECREASED GLUCOSE; Start 03/03/19 at 19:30 Dextrose (D50w Syringe) 25 ml Q15M PRN IV DECREASED GLUCOSE; Start 03/03/19 at 19:30 Dextrose (D50w Syringe) 50 ml Q15M PRN IV DECREASED GLUCOSE; Start 03/03/19 at 19:30 Glucagon (Glucagen) 1 mg Q15M PRN IM DECREASED GLUCOSE; Start 03/03/19 at 19:30 Glucose (Glutose) 15 gm Q15M PRN BUCCAL DECREASED GLUCOSE; Start 03/03/19 at 19:30 SUZY PARK MD Mar 04, 2019 13:21
[2019-03-04] MEDS: INSULIN GLARGINE [LANTus] (100 UNITS/ML) SYG SC SCH (20:22)
[2019-03-04] MEDS ORDERED: IBUPROFEN 200 MG TAB PO ONE (23:30)
[2019-03-05] VITALS (10 sets, daily range): BP systolic 95–111; BP diastolic 53–63; PULSE 64–96; RESP 19–20
[2019-03-05] MEDS: MEROPENEM 1 GM/50ML(PMX) 50 ML IVPB SCH ×3 (05:24→20:38)
[2019-03-05] MEDS: INSULIN ASPART [NOVOLOG] 3 ML PEN SC SCH ×7 (07:55→21:00)
[2019-03-05] MEDS: HEPARIN 5,000 UNIT/1 ML VIAL SC SCH ×2 (08:27→20:43)
--- NOTE | 2019-03-05 13:59 | PN ---
Date/Time of Note Date/Time of Note DATE: 03/05/19 TIME: 13:58 Assessment/Plan VTE Prophylaxis Risk score (from Ns)>0 risk: 2 SCD applied (from Ns): Yes Pharmacological prophylaxis: heparin Lines/Catheters IV Catheter Type (from Nrsg): Saline Lock Urinary Cath still in place: No Assessment/Plan Hospital Course EXAM Well appearing no distress Nontoxic AoX3 RRR CTAB Soft nt nd Uterine prolapse No edema 52 yo female with h/o cirrhosis, DMII, kidney stones, uterine prolapse who pres ents with sepsis from UTI Severe sepsis, lactic acidosis from pyelonephritis, bacteremia - Continue Merrem coverage until speciation resulted - Follow up cultures Hydronephrosis: - From uterine prolapse. Appreciate consult by Dr Rodrigues. Patient needs hysterectomy. 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 Will get viral serologies. Currently compensated. Needs endoscopic surveillance at some point DMII: - Basal/bolus insulin Discharge when abx plan finalized Result Diagram: 03/05/19 0627 03/05/19 0627 Results 24hrs Laboratory Tests Test 03/04/19 17:15 03/04/19 20:18 03/05/19 01:36 03/05/19 06:27 Bedside Glucose 113 237 H 211 White Blood Count 4.3 #L Red Blood Count 3.46 L Hemoglobin 10.7 L Hematocrit 33.5 L Mean Corpuscular 96.8 Volume Mean Corpuscular 30.9 Hemoglobin Mean Corpuscular 31.9 L Hemoglobin Concent Red Cell 16.3 H Distribution Width Platelet Count 47 #L Mean Platelet Volume 11.9 H Immature 0.500 H Granulocytes % Neutrophils % 54.0 Lymphocytes % 34.6 Monocytes % 8.8 Eosinophils % 1.6 Basophils % 0.5 Nucleated Red Blood 0.0 Cells % Immature 0.020 Granulocytes # Neutrophils # 2.3 Lymphocytes # 1.5 Monocytes # 0.4 Eosinophils # 0.1 Basophils # 0.0 Nucleated Red Blood 0.0 Cells # Sodium Level 145 H Potassium Level 3.3 L Chloride Level 113 H Carbon Dioxide Level 24 Anion Gap 8 Blood Urea Nitrogen 13 Creatinine 0.45 Est Glomerular > 60 Filtrat Rate mL/min Glucose Level 115 Calcium Level 8.2 L Total Bilirubin 1.2 # Direct Bilirubin 0.00 Indirect Bilirubin 1.2 H Aspartate Amino 22 Transf (AST/SGOT) Alanine 28 Aminotransferase (AL T/SGPT) Alkaline Phosphatase 89 Total Protein 6.8 Albumin 3.0 L Globulin 3.80 H Albumin/Globulin 0.78 Ratio Hepatitis B Surface NEGATIVE Antigen Hepatitis B Core NEGATIVE Total Antibody Hepatitis C Antibody NEGATIVE Test 03/05/19 08:00 03/05/19 11:58 Bedside Glucose 103 220 Subjective 24 Hr Interval Summary Free Text/Dictation Doing very well Sepsis resolved Wants to go home Exam/Review of Systems Exam Vitals Vital Signs Date Temp Pulse Resp B/P (MAP) Pulse Ox O2 O2 Flow FiO2 Time Delivery Rate 03/05/19 75 13:18 03/05/19 97.7 19 95/53 (67) 95 11:30 03/03/19 Nasal 17:46 Cannula 03/03/19 2 16:01 Intake and Output 03/04/19 03/04/19 03/05/19 1414:59 22:59 06:59 IntakeIntake Total 850 ml 2000 ml BalanceBalance 850 ml 2000 ml Results Results 24hrs Laboratory Tests Test 03/04/19 17:15 03/04/19 20:18 03/05/19 01:36 03/05/19 06:27 Bedside Glucose 113 237 H 211 White Blood Count 4.3 #L Red Blood Count 3.46 L Hemoglobin 10.7 L Hematocrit 33.5 L Mean Corpuscular 96.8 Volume Mean Corpuscular 30.9 Hemoglobin Mean Corpuscular 31.9 L Hemoglobin Concent Red Cell 16.3 H Distribution Width Platelet Count 47 #L Mean Platelet Volume 11.9 H Immature 0.500 H Granulocytes % Neutrophils % 54.0 Lymphocytes % 34.6 Monocytes % 8.8 Eosinophils % 1.6 Basophils % 0.5 Nucleated Red Blood 0.0 Cells % Immature 0.020 Granulocytes # Neutrophils # 2.3 Lymphocytes # 1.5 Monocytes # 0.4 Eosinophils # 0.1 Basophils # 0.0 Nucleated Red Blood 0.0 Cells # Sodium Level 145 H Potassium Level 3.3 L Chloride Level 113 H Carbon Dioxide Level 24 Anion Gap 8 Blood Urea Nitrogen 13 Creatinine 0.45 Est Glomerular > 60 Filtrat Rate mL/min Glucose Level 115 Calcium Level 8.2 L Total Bilirubin 1.2 # Direct Bilirubin 0.00 Indirect Bilirubin 1.2 H Aspartate Amino 22 Transf (AST/SGOT) Alanine 28 Aminotransferase (AL T/SGPT) Alkaline Phosphatase 89 Total Protein 6.8 Albumin 3.0 L Globulin 3.80 H Albumin/Globulin 0.78 Ratio Hepatitis B Surface NEGATIVE Antigen Hepatitis B Core NEGATIVE Total Antibody Hepatitis C Antibody NEGATIVE Test 03/05/19 08:00 03/05/19 11:58 Bedside Glucose 103 220 Medications Medication Current Medications IV Flush (NS 3 ml) 3 ml PER PROTOCOL IV ; Start 03/03/19 at 19:00 Hydromorphone HCl (Dilaudid) 0.5 mg Q4H PRN IV .SEVERE PAIN 7-10; Start 03/03/19 at 19:00 Heparin Sodium (Porcine) (Heparin (5000 Units/1ml)) 5,000 unit Q12 SC Last administered on 03/05/19at 08:27; Admin Dose 5,000 UNIT; Start 03/03/19 at 21:00 Insulin Glargine (Lantus) 16 units DAILY@2000 SC Last administered on 03/04/19at 20:22; Admin Dose 16 UNITS; Start 03/03/19 at 20:00 Insulin Aspart (Novolog Insulin Pen) 4 unit WITH MEALS SC Last administered on 03/05/19at 12:13; Admin Dose 4 UNIT; Start 03/04/19 at 07:55 Insulin Aspart (Novolog Insulin Pen) NOVOLOG *MILD* ALGORITHM WITH MEALS BEDTIME SC Last administered on 03/05/19at 12:14; Admin Dose 2 UNIT; Start 03/03/19 at 21:00 Meropenem/Sodium Chloride 50 ml @ 100 mls/hr Q8 IVPB Last administered on 03/05/19at 13:48; Admin Dose 100 MLS/HR; Start 03/03/19 at 22:00 Miscellaneous Information 1 ea NOTE XX ; Start 03/03/19 at 19:30 Glucose (Glutose) 15 gm Q15M PRN PO DECREASED GLUCOSE; Start 03/03/19 at 19:30 Glucose (Glutose) 22.5 gm Q15M PRN PO DECREASED GLUCOSE; Start 03/03/19 at 19:30 Dextrose (D50w Syringe) 25 ml Q15M PRN IV DECREASED GLUCOSE; Start 03/03/19 at 19:30 Dextrose (D50w Syringe) 50 ml Q15M PRN IV DECREASED GLUCOSE; Start 03/03/19 at 19:30 Glucagon (Glucagen) 1 mg Q15M PRN IM DECREASED GLUCOSE; Start 03/03/19 at 19:30 Glucose (Glutose) 15 gm Q15M PRN BUCCAL DECREASED GLUCOSE; Start 03/03/19 at 1 9:30 SUZY PARK MD Mar 05, 2019 13:59
[2019-03-05] MEDS ORDERED: traMADol 50 MG TAB PO ONE (20:30)
[2019-03-05] MEDS: INSULIN GLARGINE [LANTus] (100 UNITS/ML) SYG SC SCH (20:37)
[2019-03-06] VITALS (9 sets, daily range): BP systolic 96–120; BP diastolic 55–72; PULSE 73–83; RESP 16–18
[2019-03-06] MEDS: MEROPENEM 1 GM/50ML(PMX) 50 ML IVPB SCH (05:05)
[2019-03-06] MEDS: INSULIN ASPART [NOVOLOG] 3 ML PEN SC SCH ×7 (07:55→21:00)
[2019-03-06] MEDS: HEPARIN 5,000 UNIT/1 ML VIAL SC SCH ×2 (09:02→21:20)
--- NOTE | 2019-03-06 14:24 | CONS ---
Assessment/Plan Assessment/Plan Hospital Course (Demo Recall) 1. 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 receiving treatment with antibiotics. Patient currently shows improvement clinically however still shows abnormality i n her labs including leukopenia and thrombocytopenia continue follow-up management of urosepsis by primary team. 2. Uterine procidentia. Options for management including medical management using pessary versus surgical management including TVH and uterosacral ligament suspension versus sacral spinal ligament suspension, discussed with the patient however currently due to lab abnormality not a candidate for surgical management patient shows evidence of thrombocytopenia likely related to sepsis due to lab abnormality and increased risk of bleeding not a candidate for surgical management at this time.. Discussed this with the patient recommended currently management of urosepsis by primary team. As well as leukopenia and terminal cytopenia Needs referral urgently after discharge from the hospital to a blanket inspector for pessary fitting and pessary placement to prevent risk of recurrence she has the option of also Discussed about surgical management after discharge from the hospital as outpatient with her blanket inspector Plan of care discussed with the patient. All questions were answered. Consider consult with social science instructor for referral to blanket inspector as outpatient and facilitating her follow-up as outpatient Problems: (1) UTI (urinary tract infection) Status: Acute (2) Sepsis Status: Acute (3) Anemia Status: Acute (4) Thrombocytopenia Status: Acute (5) Severe sepsis Status: Acute (6) Pyelonephritis Status: Acute Assessment/Plan (Daily) As above Consultation Date/Type/Reason Admit Date/Time March 03, 2019 Date of Consultation: Mar 06, 2019 Type of Consult RELOCATION ASSOCIATE Reason for Consultation RELOCATION ASSOCIATE evaulation for uterine prolapse Date/Time of Note DATE: 03/06/19 TIME: 14:07 Hx of Present Illness 53 years old postmenopausal female here today admitted due to urosepsis. I was consulted for RELOCATION ASSOCIATE evaluation due to complete uterine prolapse. Patient reports history of complete uterine prolapse for the past few years. Palpation had been referred by her PCP for evaluation however 3 times her appointment was canceled. Postmenopausal for several years. Denies any postmenopausal bleeding or symptoms. Reports symptoms of prolapse is started with feeling a bulge in the introitus and pelvic pressure as well as difficulty urination. Reports was not able to empty her bladder completely and experience dribbling during urination. At times she needed to push her bladder up in order to be able to empty her bl adder. Patient reports 3 days ago symptoms are started with fever as well as chills and body ache and brought her to emergency room. Was noted to have urosepsis. She was admitted for management of sepsis. Due to complete uterine procidentia RELOCATION ASSOCIATE was consulted. Constitutional: chills, febrile; No no complaints, No improved, No diaphoresis, No disoriented, No poor po, No requiring IVF, No requiring O2, No other Eyes: No no complaints, No pain, No discharge, No redness, No visual change, No other ENT: No no complaints, No bleeding, No pain, No congestion, No discharge, No dysphagia, No sore throat, No other Respiratory: No no complaints, No pain, No cough, No pleuritic pain, No shortness of breath, No sputum, No wheezing, No other Cardiovascular: No no complaints, No chest pain, No edema, No lightheadedness, No orthopenea, No palpitations, No paroxysmal nocturnal dyspnea, No other Genitourinary: dysuria, flank pain; No no complaints, No bleeding, No discharge, No hematuria, No other Musculoskeletal: back pain; No no complaints, No bone/joint pain, No neck pain, No restricted range of motion, No swelling, No other Skin: No no complaints, No bruising, No erythema, No laceration, No pruritis, No rash, No skin lesions, No other Neurologic: No no complaints, No confusion, No dizziness, No focal-weakness, No headache, No syncope, No seizure, No other Endocrine: No no complaints, No polyuria, No polydypsia, No dry skin, No temp intolerance, No other Lymphatic: No no complaints, No adenopathy, No tender nodes, No lymphadema, No other Psychological: No no complaints, No nl mood/affect, No anxiety, No confusion, N o depression, No suicidal, No other Immunologic: No no complaints, No immunodeficiency, No pruritis, No rhinitis, No urticaria, No other Past Medical History past medical history: 1. History of liver cirrhosis 2. History of hernia 3. History of kidney problem Medical History: diabetes Home Meds Reported Medications Metformin Hcl* (Metformin Hcl*) 500 Mg Tablet, 500 MG PO WITH BREAKFAST DINNE, #60 TAB 03/03/19 Discontinued Reported Medications Metformin* (Glucophage*) 500 Mg Tab, 250 MG PO WITH BREAKFAST DINNE, #30 TAB 06/10/17 Discontinued Scripts Ciprofloxacin Hcl* (Ciprofloxacin Hcl*) 500 Mg Tablet, 500 MG PO BID for 7 Days, TAB Prov:CLEVELAND MENDOZA PA-C 07/24/18 Tramadol HCl (Tramadol HCl) 50 Mg Tablet, 50 MG PO Q6H PRN for PAIN, #20 TAB Prov:ALVARO PETERS 06/17/17 Amoxicillin/Potassium Clav (Amox-Clav 875-125 mg Tablet) 875-125 mg Tab, 1 TAB PO BID, #14 TAB Prov:POONAM PETERSNELL 06/17/17 Medications Current Medications IV Flush (NS 3 ml) 3 ml PER PROTOCOL IV ; Start 03/03/19 at 19:00 Hydromorphone HCl (Dilaudid) 0.5 mg Q4H PRN IV .SEVERE PAIN 7-10; Start 03/03/19 at 19:00 Heparin Sodium (Porcine) (Heparin (5000 Units/1ml)) 5,000 unit Q12 SC Last administered on 03/06/19at 09:02; Admin Dose 5,000 UNIT; Start 03/03/19 at 21:00 Insulin Glargine (Lantus) 16 units DAILY@2000 SC Last administered on 03/05/19at 20:37; Admin Dose 16 UNITS; Start 03/03/19 at 20:00 Insulin Aspart (Novolog Insulin Pen) 4 unit WITH MEALS SC Last administered on 03/06/19at 12:23; Admin Dose 4 UNIT; Start 03/04/19 at 07:55 Insulin Aspart (Novolog Insulin Pen) NOVOLOG *MILD* ALGORITHM WITH MEALS BEDTIME SC Last administered on 03/05/19at 17:48; Admin Dose 1 UNIT; Start 03/03/19 at 21:00 Meropenem/Sodium Chloride 50 ml @ 100 mls/hr Q8 IVPB Last administered on 03/06/19at 05:05; Admin Dose 100 MLS/HR; Start 03/03/19 at 22:00 Miscellaneous Information 1 ea NOTE XX ; Start 03/03/19 at 19:30 Glucose (Glutose) 15 gm Q15M PRN PO DECREASED GLUCOSE; Start 03/03/19 at 19:30 Glucose (Glutose) 22.5 gm Q15M PRN PO DECREASED GLUCOSE; Start 03/03/19 at 19:30 Dextrose (D50w Syringe) 25 ml Q15M PRN IV DECREASED GLUCOSE; Start 03/03/19 at 19:30 Dextrose (D50w Syringe) 50 ml Q15M PRN IV DECREASED GLUCOSE; Start 03/03/19 at 19:30 Glucagon (Glucagen) 1 mg Q15M PRN IM DECREASED GLUCOSE; Start 03/03/19 at 19:30 Glucose (Glutose) 15 gm Q15M PRN BUCCAL DECREASED GLUCOSE; Start 03/03/19 at 19:30 Allergies: Coded Allergies: acetaminophen (Verified Adverse Reaction, Severe, 03/03/19) nausea, vomiting, dizziness hydrocodone (Verified Adverse Reaction, Severe, 03/03/19) nausea, vomiting, dizziness morphine (Verified Adverse Reaction, Intermediate, 03/03/19) Past Surgical History Past surgical History: 1. s/p surgery hernia 2. ? surgery on bladder 2. Past Surgical Hx: cholecystectomy, other (Incisional hernia repair, ) Family History Significant Family History: no pertinent family hx Social History Alcohol Use: none Smoking Status: Never smoker Drug Use: none Exam/Review of Systems Exam Vitals Vital Signs Date Temp Pulse Resp B/P (MAP) Pulse Ox O2 O2 Flow FiO2 Time Delivery Rate 03/06/19 98.7 18 96/55 (69) 98 Room Air 11:15 03/06/19 73 08:11 03/03/19 2 16:01 Intake and Output 03/05/19 03/05/19 03/06/19 1515:00 23:00 07:00 IntakeIntake Total 750 ml 1800 ml BalanceBalance 750 ml 1800 ml Constitutional: alert, oriented, well developed Psych: no complaints, nl mood/affect Head: normocephalic, atraumatic Eyes: nl conjunctiva, EOMI, nl lids Neck: supple, non-tender Respiratory: clear to auscultation Cardiovascular: regular rate and rhythm, nl pulses Gastrointestinal: soft, non-tender Genitourinary - Female: other (There is evidence of complete uterine procidentia, with grade 3 cystocele. Decreased vaginal rugae and pale vaginal mucosa consistent with postmenopausal atrophic vaginitis noted. Cervix appears normal without any lesion. Vaginal epithelium normal without any lesion. Bimanual examination there is tenderness on palpation of suprapubic as well as vaginal adnexa. No fullness in adnexa noted. Uterus appears normal size.) Results Result Diagram: 03/06/19 0750 03/06/19 0750 Results 24hrs Laboratory Tests Test 03/05/19 17:43 03/05/19 20:33 03/06/19 01:49 03/06/19 07:50 Bedside Glucose 164 142 95 White Blood Count 3.6 L Red Blood Count 3.09 L Hemoglobin 9.5 L Hematocrit 29.5 L Mean Corpuscular 95.5 Volume Mean Corpuscular 30.7 Hemoglobin Mean Corpuscular 32.2 Hemoglobin Concent Red Cell 15.9 H Distribution Width Platelet Count 45 L Mean Platelet Volume 11.9 H Immature 0.300 Granulocytes % Neutrophils % 40.6 Lymphocytes % 45.8 Monocytes % 9.6 Eosinophils % 3.1 Basophils % 0.6 Nucleated Red Blood 0.0 Cells % Immature 0.010 Granulocytes # Neutrophils # 1.5 L Lymphocytes # 1.6 Monocytes # 0.3 Eosinophils # 0.1 Basophils # 0.0 Nucleated Red Blood 0.0 Cells # Sodium Level 140 Potassium Level 3.7 Chloride Level 112 H Carbon Dioxide Level 22 Anion Gap 6 Blood Urea Nitrogen 14 Creatinine 0.50 Est Glomerular > 60 Filtrat Rate mL/min Glucose Level 87 Calcium Level 8.5 Test 03/06/19 08:03 03/06/19 11:53 Bedside Glucose 88 95 Imaging Imaging PROCEDURE: CT abdomen and pelvis with contrast. CLINICAL INDICATION: 53-year-old female. UTI with kidney stones. Elevated liver enzymes. TECHNIQUE: CT scan of the abdomen and pelvis with contrast was performed on a multi-slice CT scanner utilizing axial imaging from the lung bases through the pubis symphysis. One or more the following does reduction techniques were utilized: Automated exposure control, adjustment of the mA/ or kV according to patient's size, or use of iterative reconstruction technique. Sagittal and coronal reformatted images were made. DICOM images are available for review. The CTDIvol is 12.31 mGy and the DLP is 667.25 mGycm. CONTRAST: 100 cc Omnipaque-300 IV COMPARISON: CT abdomen pelvis 07/27/2018. FINDINGS: CT abdomen Visualized lung bases: Calcified granuloma left lower lobe. No significant pleural or pericardial effusion. Liver: Bilobed and 13.6 mm low attenuation lesion superior segment 2, unchanged. Prominent left hepatic lobe. Nodular capsular margin suggesting cirrhosis. Patent portal vein. Gallbladder and bile ducts: Previous cholecystectomy. Common bile duct is at the upper limits of normal in size for a post cholecystectomy patient. Spleen: Enlarged spleen, measuring greater than 19 cm in diameter. Pancreas: Normal appearance. No ductal dilatation. No mass. No peripancreatic stranding. Adrenal glands: 1.6 cm low attenuation left adrenal nodule, unchanged. Negative right adrenal gland. Kidneys: Large kidneys with symmetric nephrograms. Bilateral hydronephrosis and hydroureter. No calcified renal stones. No solid lesions. Vasculature: No abdominal aortic aneurysm. Calcified plaque absent. Negative IVC. Contrast enhancing - esophageal and gastric and ligament varices. Lymph nodes: Sub centimeter periaortic and pericaval lymph nodes. No pathologic adenopathy. GI: No hiatal hernia. No evidence of obstruction or bowel wall thickening. Minimal diverticulosis right colon. Peritoneal cavity: No free fluid. Small cyst or fluid collection at the level of the splenic hilum, larger than on the 2018 exam. Right paramedian anterior abdominal wall hernia containing omental fat, unchanged. Midline anterior abdominal wall hernia containing omental fat, unchanged. Larger right paramedian mid abdominal wall hernia containing fat, stable. Well healed incision at this level. CT pelvis GI: Negative terminal ileum. Negative appendix. Negative sigmoid colon. Negative rectum. : Bilateral distal hydroureter. No distal ureter, UVJ and urinary bladder calcifications. Bicornuate uterus. No adnexal mass. 1.4 cm Bartholin cyst, decreased in size. Peritoneal cavity: No free fluid. Small bilateral fat filled inguinal hernias. Abdominal wall: 3.2 x 1.2 cm low attenuation collection in the midline of the anterior abdominal wall to mid pelvis level, present on the prior exam and un changed. This may represent surgically placed material. Lymph nodes: No adenopathy. Osseous structures: No lytic or blastic lesions. IMPRESSION: 1. Cirrhotic liver with portal hypertension and splenomegaly. Small gastroesophageal varices are identified. 2. 1.6 cm left adrenal nodule, unchanged. Probable adenoma. 3. Bilateral hydronephrosis and hydroureter to the level of the ureterovesicle junction. Findings unchanged from 07/27/2018. 4. At least 3 anterior abdominal wall hernias containing fat. Surgical related changes anterior abdominal wall mid pelvis level, stable. 5. Small cyst at the level of the splenic hilum, slightly larger than on the 2018 exam. 6. 1.4 cm Bartholin cyst, decreased in size from 2018 (1.9 cm). 7. Small bilateral fat filled inguinal hernias. RPTAT: HLRS Medications Medication Current Medications IV Flush (NS 3 ml) 3 ml PER PROTOCOL IV ; Start 03/03/19 at 19:00 Hydromorphone HCl (Dilaudid) 0.5 mg Q4H PRN IV .SEVERE PAIN 7-10; Start at 19:00 Heparin Sodium (Porcine) (Heparin (5000 Units/1ml)) 5,000 unit Q12 SC Last administered on 03/06/19at 09:02; Admin Dose 5,000 UNIT; Start 03/03/19 at 21:00 Insulin Glargine (Lantus) 16 units DAILY@2000 SC Last administered on 03/05/19at 20:37; Admin Dose 16 UNITS; Start 03/03/19 at 20:00 Insulin Aspart (Novolog Insulin Pen) 4 unit WITH MEALS SC Last administered on 03/06/19at 12:23; Admin Dose 4 UNIT; Start 03/04/19 at 07:55 Insulin Aspart (Novolog Insulin Pen) NOVOLOG *MILD* ALGORITHM WITH MEALS BEDTIME SC Last administered on 03/05/19at 17:48; Admin Dose 1 UNIT; Start 03/03/19 at 21:00 Meropenem/Sodium Chloride 50 ml @ 100 mls/hr Q8 IVPB Last administered on 03/06/19at 05:05; Admin Dose 100 MLS/HR; Start 03/03/19 at 22:00 Miscellaneous Information 1 ea NOTE XX ; Start 03/03/19 at 19:30 Glucose (Glutose) 15 gm Q15M PRN PO DECREASED GLUCOSE; Start 03/03/19 at 19:30 Glucose (Glutose) 22.5 gm Q15M PRN PO DECREASED GLUCOSE; Start 03/03/19 at 19:30 Dextrose (D50w Syringe) 25 ml Q15M PRN IV DECREASED GLUCOSE; Start 03/03/19 at 19:30 Dextrose (D50w Syringe) 50 ml Q15M PRN IV DECREASED GLUCOSE; Start 03/03/19 at 19:30 Glucagon (Glucagen) 1 mg Q15M PRN IM DECREASED GLUCOSE; Start 03/03/19 at 19:30 Glucose (Glutose) 15 gm Q15M PRN BUCCAL DECREASED GLUCOSE; Start 03/03/19 at 19:30 BERTHA BRADEN MD Mar 06, 2019 14:18
[2019-03-06] MEDS: CEFTRIAXONE 1 GM/50 ML (PMX) 50 ML IVPB SCH (14:56)
--- NOTE | 2019-03-06 15:29 | CONS ---
DATE OF ADMISSION: 03/03/2019 DATE OF CONSULTATION: 03/06/2019 TYPE OF CONSULTATION: Infectious disease. REASON FOR CONSULTATION: Antibiotic management. HISTORY OF PRESENT ILLNESS: Lacey Crum is a 53-year-old female who was admitted on 03/03/2019 with bilateral flank pain with suprapubic pain and dysuria. The patient is a 53-year-old. She has a history of diabetes mellitus, anemia, uterine prolapse and cirrhosis. She is status post right inguinal herniorrhaphy and cholecystectomy. She presents with fever, chills, low back pain, p ainful urination for 1 day. No chest pain, dyspnea or diarrhea. She does not smoke or drink. FAMILY HISTORY: Noncontributory. PAST MEDICAL HISTORY: She is diabetic. SOCIAL HISTORY: She does not smoke, drink or abuse drugs. ALLERGIES: 1. ACETAMINOPHEN. 2. HYDROCODONE. 3. MORPHINE. SHE GETS VOMITING AND DIZZINESS WITH THESE DRUGS. HOSPITAL COURSE: On admission, white count was 5.1, H and H 11.8 and 35.7, platelet count 41,000. B UN and creatinine is 12/0.52 with 80% neutrophils. The patient was started on Zosyn. Chest x- ray shows no acute cardiopulmonary disease. She is a 53-year-old female who comes in with evidence o f acute pyelonephritis, severe sepsis and was started on Zosyn. CT scan of the abdomen and pelvis sh ows cirrhotic liver with portal hypertension, splenomegaly, small gastroesophageal varices are identi fied, 1.6 cm left adrenal nodule, probable abnormal bilateral hydronephrosis and hydroureter to the l evel of the ureterovesical junction. Findings are unchanged from 07/27/2018, at least 3 anterior abd ominal wall hernias containing fat, small cyst at the level of the splenic hilum, Bartholin cyst, sma ll bilateral fat-filled inguinal hernias. Chest x-ray shows no cardiopulmonary disease. Urine cultu re grew E. coli and blood cultures E. coli, so she has UTI with sepsis. The organism is sensitive to cefotaxime. The patient is now well appearing, in no acute distress. Vital signs are stable. She was seen by Dr. Rodrigues who feels that she needs hysterectomy, recommended FINANCIAL REPORTING ACCOUNTANT consultation. The pat ient was then placed also on meropenem. PHYSICAL EXAMINATION: SKIN: Without generalized rash. HEENT: Within normal limits. NECK: Supple. LYMPH NODES: None palpable. CHEST: Decreased breath sounds at the bases. HEART: Without murmur or gallop. ABDOMEN: Soft, nontender, without organosplenomegaly or masses. According to Dr. Rodrigues, she has c omplete prolapse. She has bilateral CVA tenderness. EXTREMITIES: Without cyanosis, clubbing or edema. RECTAL AND GENITAL: Deferred. NEUROLOGICAL: No focal neurological abnormality. IMPRESSION AND PLAN: The patient comes in with urinary tract infection with sepsis. We are going to stop the meropenem and put her on ceftriaxone. I will dictate my findings to the hospitalist and to Dr. Rodrigues. Dictated By: JHONNY GUERRERO MD, JD/NTS Conf#: [id number] DID#: [id number] CC: SUZY PARK MD;*EndCC*
[2019-03-06] MEDS ORDERED: LIDOCAINE 1% (MPF) 5 ML VIAL SC ONE (16:30)
--- NOTE | 2019-03-06 17:00 | PN ---
Date/Time of Note Date/Time of Note DATE: 03/06/19 TIME: 16:59 Assessment/Plan VTE Prophylaxis Risk score (from Nsg)>0 risk: 2 SCD applied (from Nsg): Yes Pharmacological prophylaxis: heparin Lines/Catheters IV Catheter Type (from Nrsg): Peripheral IV Urinary Cath still in place: No Assessment/Plan Hospital Course EXAM Well appearing no distress Nontoxic AoX3 RRR CTAB Soft nt nd Uterine prolapse No edema 52 yo female with h/o cirrhosis, DMII, kidney stones, uterine prolapse who pr esents with sepsis from UTI Severe sepsis, lactic acidosis from pyelonephritis, bacteremia - Complete ceftriaxone course per ID. Will place PICC line - Follow up cultures Hydronephrosis: - From uterine prolapse. Appreciate consult by Dr Rodrigues Uterine prolapse: - Gynecology recommending pessary placement Thrombocytopenia: - 2/2 cirrohsis Cirrhosis; - Patinet was aware of this diagnosis. Will get viral serologies. Currently compensated. Needs endoscopic surveillance at some point DMII: - Basal/bolus insulin Discharge when abx plan finalized Result Diagram: 03/06/19 0750 03/06/19 0750 Results 24hrs Laboratory Tests Test 03/05/19 17:43 03/05/19 20:33 03/06/19 01:49 03/06/19 07:50 Bedside Glucose 164 142 95 White Blood Count 3.6 L Red Blood Count 3.09 L Hemoglobin 9.5 L Hematocrit 29.5 L Mean Corpuscular 95.5 Volume Mean Corpuscular 30.7 Hemoglobin Mean Corpuscular 32.2 Hemoglobin Concent Red Cell 15.9 H Distribution Width Platelet Count 45 L Mean Platelet Volume 11.9 H Immature 0.300 Granulocytes % Neutrophils % 40.6 Lymphocytes % 45.8 Monocytes % 9.6 Eosinophils % 3.1 Basophils % 0.6 Nucleated Red Blood 0.0 Cells % Immature 0.010 Granulocytes # Neutrophils # 1.5 L Lymphocytes # 1.6 Monocytes # 0.3 Eosinophils # 0.1 Basophils # 0.0 Nucleated Red Blood 0.0 Cells # Sodium Level 140 Potassium Level 3.7 Chloride Level 112 H Carbon Dioxide Level 22 Anion Gap 6 Blood Urea Nitrogen 14 Creatinine 0.50 Est Glomerular > 60 Filtrat Rate mL/min Glucose Level 87 Calcium Level 8.5 Test 03/06/19 08:03 03/06/19 11:53 Bedside Glucose 88 95 Subjective 24 Hr Interval Summary Free Text/Dictation Abx changed to ceftriaxone Health Associate recommending pessary as outpatient Exam/Review of Systems Exam Vitals Vital Signs Date Temp Pulse Resp B/P (MAP) Pulse Ox O2 O2 Flow FiO2 Time Delivery Rate 03/06/19 77 16:07 03/06/19 98.4 18 102/57 98 Room Air 15:24 (72) 03/03/19 2 16:01 Intake and Output 03/05/19 03/05/19 03/06/19 1515:00 23:00 07:00 IntakeIntake Total 750 ml 1800 ml BalanceBalance 750 ml 1800 ml Results Results 24hrs Laboratory Tests Test 03/05/19 17:43 03/05/19 20:33 03/06/19 01:49 03/06/19 07:50 Bedside Glucose 164 142 95 White Blood Count 3.6 L Red Blood Count 3.09 L Hemoglobin 9.5 L Hematocrit 29.5 L Mean Corpuscular 95.5 Volume Mean Corpuscular 30.7 Hemoglobin Mean Corpuscular 32.2 Hemoglobin Concent Red Cell 15.9 H Distribution Width Platelet Count 45 L Mean Platelet Volume 11.9 H Immature 0.300 Granulocytes % Neutrophils % 40.6 Lymphocytes % 45.8 Monocytes % 9.6 Eosinophils % 3.1 Basophils % 0.6 Nucleated Red Blood 0.0 Cells % Immature 0.010 Granulocytes # Neutrophils # 1.5 L Lymphocytes # 1.6 Monocytes # 0.3 Eosinophils # 0.1 Basophils # 0.0 Nucleated Red Blood 0.0 Cells # Sodium Level 140 Potassium Level 3.7 Chloride Level 112 H Carbon Dioxide Level 22 Anion Gap 6 Blood Urea Nitrogen 14 Creatinine 0.50 Est Glomerular > 60 Filtrat Rate mL/min Glucose Level 87 Calcium Level 8.5 Test 03/06/19 08:03 03/06/19 11:53 Bedside Glucose 88 95 Medications Medication Current Medications IV Flush (NS 3 ml) 3 ml PER PROTOCOL IV ; Start 03/03/19 at 19:00 Hydromorphone HCl (Dilaudid) 0.5 mg Q4H PRN IV .SEVERE PAIN 7-10; Start 03/03/19 at 19:00 Heparin Sodium (Porcine) (Heparin (5000 Units/1ml)) 5,000 unit Q12 SC Last administered on 03/06/19at 09:02; Admin Dose 5,000 UNIT; Start 03/03/19 at 21:00 Insulin Glargine (Lantus) 16 units DAILY@2000 SC Last administered on 03/05/19at 20:37; Admin Dose 16 UNITS; Start 03/03/19 at 20:00 Insulin Aspart (Novolog Insulin Pen) 4 unit WITH MEALS SC Last administered on 03/06/19at 12:23; Admin Dose 4 UNIT; Start 03/04/19 at 07:55 Insulin Aspart (Novolog Insulin Pen) NOVOLOG *MILD* ALGORITHM WITH MEALS BEDTIME SC Last administered on 03/05/19at 17:48; Admin Dose 1 UNIT; Start 03/03/19 at 21:00 Miscellaneous Information 1 ea NOTE XX ; Start 03/03/19 at 19:30 Glucose (Glutose) 15 gm Q15M PRN PO DECREASED GLUCOSE; Start 03/03/19 at 19:30 Glucose (Glutose) 22.5 gm Q15M PRN PO DECREASED GLUCOSE; Start 03/03/19 at 19:30 Dextrose (D50w Syringe) 25 ml Q15M PRN IV DECREASED GLUCOSE; Start 03/03/19 at 19:30 Dextrose (D50w Syringe) 50 ml Q15M PRN IV DECREASED GLUCOSE; Start 03/03/19 at 19:30 Glucagon (Glucagen) 1 mg Q15M PRN IM DECREASED GLUCOSE; Start 03/03/19 at 19:30 Glucose (Glutose) 15 gm Q15M PRN BUCCAL DECREASED GLUCOSE; Start 03/03/19 at 19:30 Ceftriaxone Sodium 50 ml @ 100 mls/hr Q24H IVPB Last administered on 03/06/19at 14:56; Admin Dose 100 MLS/HR; Start 03/06/19 at 14:30 SUZY PARK MD Mar 06, 2019 17:00
[2019-03-06] MEDS: INSULIN GLARGINE [LANTus] (100 UNITS/ML) SYG SC SCH (20:00)
[2019-03-07] VITALS (10 sets, daily range): BP systolic 100–120; BP diastolic 58–71; PULSE 71–92; RESP 18–20
[2019-03-07] MEDS: INSULIN ASPART [NOVOLOG] 3 ML PEN SC SCH ×7 (07:55→21:00)
[2019-03-07] MEDS: HEPARIN 5,000 UNIT/1 ML VIAL SC SCH ×2 (09:48→21:17)
--- NOTE | 2019-03-07 14:04 | CONS ---
Assessment/Plan Assessment/Plan Hospital Course (Demo Recall) Patient is alert laying comfortably in bed still with mild pain on bilateral flank area no fevers overnight. Microbiology: Blood and urine culture grew E. coli Antimicrobials: Rocephin Physical examination: Obese well-developed middle-aged woman who is alert in no distress. Head atraumatic normocephalic neck is supple chest rise symmetrical breath sounds clear heart S1-S2 abdomen soft bowel sounds present extremities without cyanosis skin without generalized edema rashes or jaundice Assessment: acute pyelonephritis with E. coli bacteremia Plan: Patient is on appropriate antibiotic regimen, will order repeat blood cultures. She will need to complete 2 weeks antibiotics Consultation Date/Type/Reason Admit Date/Time Mar 03, 2019 at 17:48 Initial Consult Date 03/06/19 Type of Consult id Requesting Provider: SUZY PARK MD Date/Time of Note DATE: 03/07/19 TIME: 14:03 Exam/Review of Systems Exam Vitals Vital Signs Date Temp Pulse Resp B/P (MAP) Pulse Ox O2 O2 Flow FiO2 Time Delivery Rate 03/07/19 76 12:33 03/07/19 97.7 20 100/62 95 Room Air 11:26 (75) 03/03/19 2 16:01 Intake and Output 03/06/19 03/06/19 03/07/19 1414:59 22:59 06:59 IntakeIntake Total 100 ml 800 ml BalanceBalance 100 ml 800 ml Results Result Diagram: 03/06/19 0750 03/06/19 0750 Results 24hrs Laboratory Tests Test 03/06/19 17:46 03/06/19 21:07 03/07/19 08:01 03/07/19 11:59 Bedside Glucose 112 180 107 80 Medications Medication Current Medications IV Flush (NS 3 ml) 3 ml PER PROTOCOL IV ; Start 03/03/19 at 19:00 Hydromorphone HCl (Dilaudid) 0.5 mg Q4H PRN IV .SEVERE PAIN 7-10; Start 03/03/19 at 19:00 Heparin Sodium (Porcine) (Heparin (5000 Units/1ml)) 5,000 unit Q12 SC Last administered on 03/07/19at 09:48; Admin Dose 5,000 UNIT; Start 03/03/19 at 21:00 Insulin Glargine (Lantus) 16 units DAILY@2000 SC Last administered on 03/06/19at 20:00; Admin Dose 16 UNITS; Start 03/03/19 at 20:00 Insulin Aspart (Novolog Insulin Pen) 4 unit WITH MEALS SC Last administered on 03/06/19at 17:51; Admin Dose 4 UNIT; Start 03/04/19 at 07:55 Insulin Aspart (Novolog Insulin Pen) NOVOLOG *MILD* ALGORITHM WITH MEALS BEDTIME SC Last administered on 03/05/19at 17:48; Admin Dose 1 UNIT; Start 03/03/19 at 21:00 Miscellaneous Information 1 ea NOTE XX ; Start 03/03/19 at 19:30 Glucose (Glutose) 15 gm Q15M PRN PO DECREASED GLUCOSE; Start 03/03/19 at 19:30 Glucose (Glutose) 22.5 gm Q15M PRN PO DECREASED GLUCOSE; Start 03/03/19 at 19 :30 Dextrose (D50w Syringe) 25 ml Q15M PRN IV DECREASED GLUCOSE; Start 03/03/19 at 19:30 Dextrose (D50w Syringe) 50 ml Q15M PRN IV DECREASED GLUCOSE; Start 03/03/19 at 19:30 Glucagon (Glucagen) 1 mg Q15M PRN IM DECREASED GLUCOSE; Start 03/03/19 at 19:30 Glucose (Glutose) 15 gm Q15M PRN BUCCAL DECREASED GLUCOSE; Start 03/03/19 at 19:30 Ceftriaxone Sodium 50 ml @ 100 mls/hr Q24H IVPB Last administered on 03/06/19at 14:56; Admin Dose 100 MLS/HR; Start 03/06/19 at 14:30 TOSIN CORTZE NP Mar 07, 2019 14:04
--- NOTE | 2019-03-07 15:20 | DS ---
Date/Time of Note Date/Time of Note DATE: 03/07/19 TIME: 15:18 Discharge Summary Admission/Discharge Info Admit Date/Time Mar 03, 2019 at 17:48 Discharge Date/Time Discharge Diagnosis Sepsis UTI Cirrhosis Hydronephrosis Uterine prolapse Patient Condition: Stable Hx of Present Illness 53 yo female with h/o DMII, uterine prolapse, kidney stones presents with fever and malaise Patient in usual state of health until yesterday. Began to develop fever and malaise. Has progressed to back pain with lower pelvic pain. Mild dysuria. Severe lethargy. Came to ED where found to have marked fever. She has been given zosyn and NSAID, feels better. Hospital Course 52 yo female with h/o cirrhosis, DMII, kidney stones, uterine prolapse who presents with severe sepsis. She was found to have a UTI with bacteremia. She was treated with merrem and symptoms resolved. Blood cultures grew E coli senstiive to cefriaxone. she was arranged for home infusion of ceftriaxone via PICC line She was advised to follow up [facility] gastroenterology at a tertiary center for cirrhosis management She was found to have bilateral hydronephrosis from uterine prolapse. Seen by urology who recommended hysterectomy. Gynecology saw her and recommended outpatient evaluation for pessary placement Diabetes was managed with basal/bolus insulin Home Meds Reported Medications Metformin Hcl* (Metformin Hcl*) 500 Mg Tablet, 500 MG PO WITH BREAKFAST DINNE, #60 TAB 03/03/19 Discontinued Reported Medications Metformin* (Glucophage*) 500 Mg Tab, 250 MG PO WITH BREAKFAST DINNE, #30 TAB 06/10/17 Discontinued Scripts Ciprofloxacin Hcl* (Ciprofloxacin Hcl*) 500 Mg Tablet, 500 MG PO BID for 7 Days, TAB Prov:CLEVELAND MENDOZA PA-C 07/24/18 Tramadol HCl (Tramadol HCl) 50 Mg Tablet, 50 MG PO Q6H PRN for PAIN, #20 TAB Prov:ALVARO PETERS 06/17/17 Amoxicillin/Potassium Clav (Amox-Clav 875-125 mg Tablet) 875-125 mg Tab, 1 TAB PO BID, #14 TAB Prov:ALVARO PETERS 06/17/17 Primary Care Provider Care Physician No Primary Pending Labs Laboratory Tests Test 03/06/19 17:46 03/06/19 21:07 03/07/19 08:01 03/07/19 11:59 Bedside 112 180 107 80 Glucose mg/dL (70-220) mg/dL (70-220) mg/dL (70-220) mg/dL (70-220) SUZY PARK MD Mar 07, 2019 15:20
--- NOTE | 2019-03-07 15:23 | PDOCDIS ---
Discharge Instructions DIAGNOSIS Discharge Diagnosis Sepsis UTI Cirrhosis Hydronephrosis Uterine prolapse CONDITION [id number] Patient Condition: [id number] Stable FOLLOW UP/APPOINTMENTS Follow-up Plan Make an appointment to see admissions specialist for management of uterus prolapse Make an appointment with a liver doctor at [facility], [facility], or [facility] to discuss liver transplant SUZY PARK MD Mar 07, 2019 15:23
[2019-03-07] MEDS: CEFTRIAXONE 1 GM/50 ML (PMX) 50 ML IVPB SCH (16:18)
[2019-03-07] MEDS: INSULIN GLARGINE [LANTus] (100 UNITS/ML) SYG SC SCH (21:17)
[2019-03-08] VITALS (9 sets, daily range): BP systolic 96–116; BP diastolic 57–70; PULSE 70–87; RESP 18
[2019-03-08] MEDS: INSULIN ASPART [NOVOLOG] 3 ML PEN SC SCH ×4 (07:55→12:46)
[2019-03-08] MEDS: HEPARIN 5,000 UNIT/1 ML VIAL SC SCH (08:25)
--- NOTE | 2019-03-08 13:57 | PN ---
Date/Time of Note Date/Time of Note DATE: 03/08/19 TIME: 13:57 Assessment/Plan VTE Prophylaxis Risk score (from Nsg)>0 risk: 3 SCD applied (from Nsg): Yes Pharmacological prophylaxis: heparin Lines/Catheters IV Catheter Type (from Nrsg): PICC Line Central line still needed: Yes Urinary Cath still in place: No Assessment/Plan Hospital Course 52 yo female with h/o cirrhosis, DMII, kidney stones, uterine prolapse who presents with severe sepsis. She was found to have a UTI with bacteremia. She was treated with merrem and symptoms resolved. Blood cultures grew E coli senstiive to cefriaxone. she was arranged for home infusion of ceftriaxone via PICC line She was advised to follow up [facility] gastroenterology at a tertiary center for cirrhosis management She was found to have bilateral hydronephrosis from uterine prolapse. Seen by urology who recommended hysterectomy. 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 Exam/Review of Systems Exam Vitals Vital Signs Date Temp Pulse Resp B/P (MAP) Pulse Ox O2 O2 Flow FiO2 Time Delivery Rate 03/08/19 97.6 75 18 110/68 96 Room Air 12:38 (82) Intake and Output 03/07/19 03/07/19 03/08/19 1515:00 23:00 07:00 IntakeIntake Total 1600 ml BalanceBalance 1600 ml Constitutional: alert, oriented, well developed Psych: no complaints, nl mood/affect Head: normocephalic, atraumatic Eyes: nl conjunctiva, EOMI, nl lids, nl sclera, PERRL ENMT: nl external ears & nose, nl lips & teeth, nl nasal mucosa & septum Neck: supple, non-tender Respiratory: clear to auscultation, normal air movement Cardiovascular: regular rate and rhythm, nl pulses Gastrointestinal: soft, nl liver, spleen, non-tender Musculoskeletal: nl extremities to inspection, nl gait and stance Extremities: normal pulses Neurological: [employer]-XII intact, nl mental status, nl speech, nl strength Skin: nl turgor; No rash or lesions Lymph: nl lymph nodes Results Results 24hrs Laboratory Tests Test 03/07/19 17:36 03/07/19 20:57 03/08/19 08:13 03/08/19 12:40 Bedside Glucose 119 93 105 96 Medications Medication Current Medications IV Flush (NS 3 ml) 3 ml PER PROTOCOL IV ; Start 03/03/19 at 19:00 Hydromorphone HCl (Dilaudid) 0.5 mg Q4H PRN IV .SEVERE PAIN 7-10; Start 03/03/19 at 19:00 Heparin Sodium (Porcine) (Heparin (5000 Units/1ml)) 5,000 unit Q12 SC Last administered on 03/08/19at 08:25; Admin Dose 5,000 UNIT; Start 03/03/19 at 21:00 Insulin Glargine (Lantus) 16 units DAILY@2000 SC Last administered on 03/07/19at 21:17; Admin Dose 16 UNITS; Start 03/03/19 at 20:00 Insulin Aspart (Novolog Insulin Pen) 4 unit WITH MEALS SC Last administered on 03/08/19at 12:46; Admin Dose 4 UNIT; Start 03/04/19 at 07:55 Insulin Aspart (Novolog Insulin Pen) NOVOLOG *MILD* ALGORITHM WITH MEALS BEDTIME SC Last administered on 03/05/19at 17:48; Admin Dose 1 UNIT; Start 03/03/19 at 21:00 Miscellaneous Information 1 ea NOTE XX ; Start 03/03/19 at 19:30 Glucose (Glutose) 15 gm Q15M PRN PO DECREASED GLUCOSE; Start 03/03/19 at 19:30 Glucose (Glutose) 22.5 gm Q15M PRN PO DECREASED GLUCOSE; Start 03/03/19 at 19:30 Dextrose (D50w Syringe) 25 ml Q15M PRN IV DECREASED GLUCOSE; Start 03/03/19 at 19:30 Dextrose (D50w Syringe) 50 ml Q15M PRN IV DECREASED GLUCOSE; Start 03/03/19 at 19:30 Glucagon (Glucagen) 1 mg Q15M PRN IM DECREASED GLUCOSE; Start 03/03/19 at 19:30 Glucose (Glutose) 15 gm Q15M PRN BUCCAL DECREASED GLUCOSE; Start 03/03/19 at 19:30 Ceftriaxone Sodium 50 ml @ 100 mls/hr Q24H IVPB Last administered on 03/07/19at 16:18; Admin Dose 100 MLS/HR; Start 03/06/19 at 14:30 IV Flush (NS 10 ml) 10 ml PRN PRN IV IV PROTOCOL; Start 03/07/19 at 21:00 SUZY PARK MD Mar 08, 2019 13:57
[2019-03-08] MEDS: CEFTRIAXONE 1 GM/50 ML (PMX) 50 ML IVPB SCH (15:41)
--- NOTE | 2019-03-08 17:09 | CONS ---
Consultation Date/Type/Reason Admit Date/Time Mar 03, 2019 at 17:48 Initial Consult Date SUBJECTIVE: Patient is awake,alert, sitting up in achair. No fevers. PICC line is place. VS: stable T: 98.2 LABS: Reviewed. Microbiology: Blood and urine culture grew E. coli Antimicrobials: Rocephin Physical examination: GEN: Obese well-developed middle-aged woman who is alert in no distress. HENT: Head atraumatic normocephalic, neck is supple PULM: chest rise symmetrical, breath sounds clear Heart: S1-S2 Abdomen: soft, bowel sounds present Extremities: no cyanosis Skin: no generalized edema rashes or jaundice Assessment: acute pyelonephritis with E. coli bacteremia Plan: Patient is on appropriate antibiotic regimen. PICC line in place. She will need to complete 2 weeks antibiotics. D/C planning. Requesting Provider: SUZY PARK MD Date/Time of Note DATE: 03/08/19 TIME: 17:06 Exam/Review of Systems Exam Vitals Vital Signs Date Temp Pulse Resp B/P (MAP) Pulse Ox O2 O2 Flow FiO2 Time Delivery Rate 03/08/19 70 16:01 03/08/19 98.2 18 110/65 98 Room Air 15:16 (80) Intake and Output 03/07/19 03/07/19 03/08/19 1515:00 23:00 07:00 IntakeIntake Total 1600 ml BalanceBalance 1600 ml Results Result Diagram: 03/06/19 0750 03/06/19 0750 Results 24hrs Laboratory Tests Test 03/07/19 17:36 03/07/19 20:57 03/08/19 08:13 03/08/19 12:40 Bedside Glucose 119 93 105 96 Medications Medication Current Medications IV Flush (NS 3 ml) 3 ml PER PROTOCOL IV ; Start 03/03/19 at 19:00 Hydromorphone HCl (Dilaudid) 0.5 mg Q4H PRN IV .SEVERE PAIN 7-10; Start 03/03/19 at 19:00 Heparin Sodium (Porcine) (Heparin (5000 Units/1ml)) 5,000 unit Q12 SC Last administered on 03/08/19at 08:25; Admin Dose 5,000 UNIT; Start 03/03/19 at 21:00 Insulin Glargine (Lantus) 16 units DAILY@2000 SC Last administered on 03/07/19at 21:17; Admin Dose 16 UNITS; Start 03/03/19 at 20:00 Insulin Aspart (Novolog Insulin Pen) 4 unit WITH MEALS SC Last administered on 03/08/19at 12:46; Admin Dose 4 UNIT; Start 03/04/19 at 07:55 Insulin Aspart (Novolog Insulin Pen) NOVOLOG *MILD* ALGORITHM WITH MEALS BEDTIME SC Last administered on 03/05/19at 17:48; Admin Dose 1 UNIT; Start 03/03/19 at 21:00 Miscellaneous Information 1 ea NOTE XX ; Start 03/03/19 at 19:30 Glucose (Glutose) 15 gm Q15M PRN PO DECREASED GLUCOSE; Start 03/03/19 at 19:30 Glucose (Glutose) 22.5 gm Q15M PRN PO DECREASED GLUCOSE; Start 03/03/19 at 19:30 Dextrose (D50w Syringe) 25 ml Q15M PRN IV DECREASED GLUCOSE; Start 03/03/19 at 19:30 Dextrose (D50w Syringe) 50 ml Q15M PRN IV DECREASED GLUCOSE; Start 03/03/19 at 19:30 Glucagon (Glucagen) 1 mg Q15M PRN IM DECREASED GLUCOSE; Start 03/03/19 at 19:30 Glucose (Glutose) 15 gm Q15M PRN BUCCAL DECREASED GLUCOSE; Start 03/03/19 at 19:30 Ceftriaxone Sodium 50 ml @ 100 mls/hr Q24H IVPB Last administered on 03/08/19at 15:41; Admin Dose 100 MLS/HR; Start 03/06/19 at 14:30 IV Flush (NS 10 ml) 10 ml PRN PRN IV IV PROTOCOL; Start 03/07/19 at 21:00 FATOU STEEL Mar 08, 2019 17:09
== END 2019-03-08 17:08 | disposition home health service (06) | DRG 872 ==
LOC: E/R 15:21 → TEL 17:48 → SUATTDRO 18:30
PROVIDERS: ADMIT Internal Medicine; ATTEND Internal Medicine
PROC: 02HV33Z Insertion of Infusion Device into Superior Vena Cava, Percutaneous Approach (ICD-10-PCS; principal; 2019-03-07)
DX: A41.51 Sepsis due to Escherichia coli [E. coli] (principal); N10 Acute pyelonephritis; N13.30 Unspecified hydronephrosis; E87.2 Acidosis; K74.60 Unspecified cirrhosis of liver; E11.8 Type 2 diabetes mellitus with unspecified complications; N81.3 Complete uterovaginal prolapse; D69.6 Thrombocytopenia, unspecified; R65.20 Severe sepsis without septic shock; D64.9 Anemia, unspecified; Z79.84 Long term (current) use of oral hypoglycemic drugs
CPT/HCPCS: 36415; 36569; 71045; 74177; 76937; 80048; 80053; 81001; 81003; 82962; 83036; 83605; 84484; 85025; 85610; 85730; 86704; 86709; 86803; 87086; 87340; 93005; 96374; 96375; 97110; 97116; 97161; 97530; J0696; J1644; J1815; J1885; J2185; J2543; J7030; Q9967

== ENCOUNTER 2019-06-24 15:23 | Emergency (ER) | payer BC ==
[~2019-06-24] VITALS: Ht 152.4 cm; Wt 62.2 kg
[~2019-06-24 15:23] MED LIST changes: -AMOX1TAB10 PO; +CEPH-443 PO; -CIPR500T4 PO; -METF-849 PO; +METF500T24 PO; -TRAM50TA2 PO
[2019-06-24 15:27] VITALS: BP 125/79; PULSE 70; RESP 18; Ht 152.4 cm; Wt 62.2 kg
--- NOTE | 2019-06-24 16:44 | EN ---
Date/Time of Note Date/Time of Note DATE: 06/24/19 TIME: 16:43 ER Progress Note [id number] female with left sided abdominal pain for last 2 to 3 days. Pain with bowel movements. No SIRS criteria. Okay to initiate evaluation in ED 2. CANDICE JOHNOSN MD Jun 24, 2019 16:44
[2019-06-24] MEDS ORDERED: ONDANSETRON 4 MG INJ IV STA (17:14)
[2019-06-24] MEDS ORDERED: SOD CHLORIDE 0.9% 1,000 ML IV STA (17:14)
[2019-06-24] MEDS ORDERED: IBUPROFEN 600 MG TAB PO ONE (17:30)
[2019-06-24] MEDS ORDERED: ACETAMINOPHEN 325 MG TAB PO ONE (17:30)
[2019-06-24] MEDS ORDERED: POTASSIUM CHLORIDE (SR) 20 MEQ TAB PO STA (18:36)
[2019-06-24] MEDS ORDERED: CEFTRIAXONE 1 GM/50 ML (PMX) 50 ML IVPB ONE (19:00)
--- NOTE | 2019-06-24 20:39 | ERD ---
ER Documentation Chief Complaint Chief Complaint back pain radiating to abdomen since yesterday HPI This is a 53-year-old female with past medical history of type 2 diabetes presents emergency department complaining of left mid back pain with radiation to her left flank and left lower quadrant for the past 1 day. Pain is currently rated 9/10 in severity and constant. She denies any nausea, vomiting, diarrhea, fevers, chills, or other symptoms at this time. ROS All systems reviewed and are negative except as per history of present illness. Medications Home Meds Active Scripts Cephalexin* (Keflex*) 500 Mg Capsule, 500 MG PO TID for 7 Days, CAP Prov:CLEVELAND MENDOZA PA-C 06/24/19 Reported Medications Metformin Hcl* (Metformin Hcl*) 500 Mg Tablet, 500 MG PO WITH BREAKFAST DINNE, #60 TAB 03/03/19 Allergies Allergies: Coded Allergies: acetaminophen (Verified Adverse Reaction, Severe, N/V,DIZZINESS, 06/24/19) nausea, vomiting, dizziness hydrocodone (Verified Adverse Reaction, Severe, N/V,DIZZINESS, 06/24/19) nausea, vomiting, dizziness ibuprofen (Verified Adverse Reaction, Severe, PT WITH LIVER CIRRHOSIS, 06/24/19) morphine (Verified Adverse Reaction, Severe, N/V/DIZZINESS, 06/24/19) PMhx/Soc History of Surgery: Yes Anesthesia Reaction: No Hx Neurological Disorder: No Hx Respiratory Disorders: No Hx Cardiac Disorders: No Hx Psychiatric Problems: No Hx Miscellaneous Medical Probl: Yes (DM , KIDNEY STONE , UTERINE PROLAPSE sclerosis) Hx Alcohol Use: No Hx Substance Use: No Hx Tobacco Use: No Smoking Status: Never smoker FmHx Family History: No diabetes Physical Exam Vitals Vital Signs Date Temp Pulse Resp B/P (MAP) Pulse Ox O2 O2 Flow FiO2 Time Delivery Rate 06/24/19 98.0 70 18 125/79 94 15:27 (94) Physical Exam Const: No acute distress Head: Atraumatic Eyes: Normal Conjunctiva ENT: Normal External Ears, Nose and Mouth. Neck: Full range of motion. No meningismus. Resp: Clear to auscultation bilaterally Cardio: Regular rate and rhythm, no murmurs Abd: Soft, tenderness palpation of the left lower quadrant, no rebound tenderness or guarding, no McBurney's point tenderness non distended. Normal leslie wel sounds Skin: No petechiae or rashes Back: Tenderness to palpation of the left flank. Ext: No cyanosis, or edema Neur: Awake and alert Psych: Normal Mood and Affect Result Diagram: 06/24/19 1733 06/24/19 1733 Results 24 hrs Laboratory Tests Test 06/24/19 17:28 06/24/19 17:32 06/24/19 17:33 Urine Color YELLOW Urine Clarity CLEAR Urine pH 6.0 Urine Specific [place] 1.006 Urine Ketones NEGATIVE mg/dL Urine Nitrite POSITIVE mg/dL Urine Bilirubin NEGATIVE mg/dL Urine Urobilinogen NEGATIVE mg/dL Urine Leukocyte Esterase TRACE Osiris/ul Urine Microscopic RBC 2 /HPF Urine Microscopic WBC 8 /HPF Urine Squamous Epithelial Cells FEW /HPF Urine Bacteria MANY /HPF Urine Hemoglobin 1+ mg/dL Urine Glucose NEGATIVE mg/dL Urine Total Protein NEGATIVE mg/dl Prothrombin Time 16.6 Sec Prothrombin Time Ratio 1.3 INR International 1.33 Normalized Ratio Activated Partial Thromboplast 36.6 Sec Time White Blood Count 3.2 10^3/ul Red Blood Count 4.27 10^6/ul Hemoglobin 13.5 g/dl Hematocrit 41.7 % Mean Corpuscular Volume 97.7 fl Mean Corpuscular Hemoglobin 31.6 pg Mean Corpuscular 32.4 g/dl Hemoglobin Concent Red Cell Distribution Width 15.8 % Platelet Count 42 10^3/UL Mean Platelet Volume 11.5 fl Immature Granulocytes % 0.000 % Neutrophils % % Segmented Neutrophils % (Manual) 44 % Band Neutrophils % (Manual) 2 % Lymphocytes % % Lymphocytes % (Manual) 44 % Monocytes % % Monocytes % (Manual) 9 % Eosinophils % % Basophils % % Basophils % (Manual) 1 % Nucleated Red Blood Cells % 0.0 /100WBC Immature Granulocytes # 0.000 10^3/ul Neutrophils # 10^3/ul Neutrophils # (Manual) 1.4 10^3/ul Band Neutrophils # 0.0 10^3/ul Lymphocytes (Manual) 1.4 10^3/ul Lymphocytes # 10^3/ul Monocytes # 10^3/ul Monocytes # (Manual) 0.2 10^3/ul Eosinophils # 10^3/ul Basophils # 10^3/ul Basophils # (Manual) 0.0 10^3/ul Nucleated Red Blood Cells # 10^3/ul Platelet Estimate SIG DECREASED Sodium Level 146 mmol/L Potassium Level 3.1 mmol/L Chloride Level 112 mmol/L Carbon Dioxide Level 21 mmol/L Anion Gap 13 Blood Urea Nitrogen 10 mg/dl Creatinine 0.38 mg/dl Est Glomerular Filtrat > 60 mL/min Rate mL/min Glucose Level 141 mg/dl Calcium Level 9.0 mg/dl Magnesium Level 1.9 mg/dl Total Bilirubin 1.9 mg/dl Direct Bilirubin 0.00 mg/dl Indirect Bilirubin 1.9 mg/dl Aspartate Amino Transf (AST/SGOT) 66 IU/L Alanine 51 IU/L Aminotransferase (ALT/SGPT) Alkaline Phosphatase 111 IU/L Total Protein 8.9 g/dl Albumin 4.3 g/dl Globulin 4.60 g/dl Albumin/Globulin Ratio 0.93 Lipase 169 U/L Current Medications Medications Dose Sig/Stef Start Time Status Last (Trade) Ordered Route PRN Stop Time Admin Dose Reason Admin Ibuprofen 600 mg ONCE ONCE 06/24/19 DC (Motrin) PO 17:30 06/24/19 17:31 Sodium 1,000 ml @ Q1H STAT 06/24/19 DC 06/24/19 Chloride 1,000 mls/hr IV 17:14 06/24/19 17:32 18:13 Ondansetron 4 mg ONCE STAT 06/24/19 DC 06/24/19 HCl (Zofran IV 17:14 06/24/19 17:33 Inj) 17:16 650 mg ONCE ONCE 06/24/19 DC 06/24/19 Acetaminophen PO 17:30 06/24/19 17:32 (Tylenol 17:31 Tab) Ceftriaxone 50 ml @ ONCE ONCE 06/24/19 DC 06/24/19 Sodium 100 mls/hr IVPB 19:00 06/24/19 18:46 19:29 Potassium 60 meq ONCE STAT 06/24/19 DC 06/24/19 Chloride PO 18:36 06/24/19 18:45 (Klor-Con 20) 18:38 [place] [id number] Radiology Main Line: [phone] DIAGNOSTIC IMAGING REPORT Patient: GUNJAN PIERCE : 1965 Age: 53 Sex: F MR #: [id number] DOS: 06/24/19 6704 Ordering MD: CLEVELAND MENDOZA PA-C Location: [facility] [place] Room/Bed: PROCEDURE: CT abdomen and pelvis without contrast. CLINICAL INDICATION: Abdominal Pain TECHNIQUE: CT scan of the abdomen and pelvis without oral contrast was performed and is reconstructed at 2.5 mm contiguous axial intervals from the dome of the diaphragm to the inferior pubic rami.. The patient was scanned without intravenous contrast. Sagittal and coronal reformatted images were obtained from the axial source images. The calculated radiation dose measures 569 mGy centimeters. The CTDI measures 11.8 mGy. Individualized dose optimization technique was used for the performance of this exam. This included 1. Automated exposure control. 2. Adjustment of the mA and / or kV according to the patient's size. 3. Use of iterative reconstructed technique. DICOM images are available. COMPARISON: CT abdomen pelvis March 04, 2019 FINDINGS: The lung bases are clear of any infiltrate or nodule. No effusion is seen. The liver is of normal size with no solid mass or ductal dilatation. There is a nodular contour to the liver compatible with cirrhosis. There is a bilobed cyst on the diaphragmatic aspect of the left lobe measuring 15 mm in diameter. gallbladder is not confidently seen. There is mild extrahepatic bile duct dilatation. No stones are visualized. no adrenal or pancreatic abnormalities present. spleen is enlarged measuring 16 cm in length. Kidneys are of normal size and contour. No mass Is seen. There is a 2 mm nonobstructing stone in the mid to lower pole of the left kidney. There is moderate bilateral hydroureter nephrosis to the level of the ureterovesicular junction. No stones are seen. There is a cystocele with a inferior portion of the urinary bladder and the ureterovesicular junctions bulging into the vagina. There is compression of the distal ureters with resultant hydroureter nephrosis. No bladder mass or stone is present. Uterus and ovaries appear normal. There is no aneurysm. No adenopathy is present. No bowel mass or obstruction is present. The appendix is normal. No phlegmon, ascites or pneumoperitoneum is visualized. There are multiple supraumbilical hernias containing fat. Noted is a well-demarcated encapsulated fluid collection in the midline in the anterior lower abdominal and upper pelvic wall measuring 4.7 cm T R by 5 millimeters AP by 9 cm CC. This is unchanged when compared with the prior study and most likely represents a postsurgical seroma. The osseous structures are intact. There are bilateral inguinal hernias containing fat. IMPRESSION: Bladder cystocele bulging into the vagina compressing the distal ureters with resultant moderate hydroureter nephrosis. 2 mm nonobstructing left renal calculus. Cirrhotic liver. Cholecystectomy. No evidence of choledocholithiasis or biliary obstruction. Splenomegaly. Anterior abdominal wall hernias containing fat. Post anterior pelvic wall laparotomy with stable chronic fluid collection likely representing seroma. Bilateral inguinal hernias containing fat. Hepatic cyst. .Yuriy Raines MD, MD Date Time Electronically viewed and signed by .Yuriy Raines MD, MD on 06/24/2019 18:22 .A/ CC: CLEVELAND MENDOZA PA-C [id number] Procedures/MDM 53-year-old female presents emergency department complaining of left flank and left lower quadrant pain. Patient was administered IV morphine with improvement of symptoms. CBC: no e/o of systemic infection or severe anemia CMP: no e/o severe acidosis, alkalosis, renal failure, diabetic ketoacidosis, liver disease. Potassium was lowered at 3.1 and 60 MeQ was given as recommended by attending ED physician, Dr. Almanza Lipase: no e/o pancreatitis PT/INR: normal coagulation Urine: no e/o acute infection or hematuria CT abdomen and pelvis was notable for compression of the ureters and a cystocele through the vagina. The full report interpreted by the radiologist may be viewed above. Kidney stone as well as cystocele and pressure on the left ureter. No evidence to suggest acute surgical abdomen, sepsis, serous bacterial infection, or other emergent process. I did discuss his case with attending ED physician, Dr. Solomon Almanza who was made aware of the patient's case and recommended follow-up with [facility] physician and urologist as an outpatient within the next 24 hours. Medical decision making: Symptoms are likely secondary to left Patient's gastrointestinal symptoms have stabilized while in the department. No evidence of severe dehydration, sepsis, or surgical abdomen. Extensive discussion with family and patient that occult disease cannot be ruled out. 8 hour recheck for repeat abdominal exam is planned. No evidence of life-threatening pathology at time of discharge. Pt/family in agreement with discharge plan/diagnosis. Pt/family advised to return immediately with any new or worsening symptoms. Follow-up with primary care physician within the next 1-2 days. Departure Diagnosis: Primary Impression: UTI (urinary tract infection) Condition: Fair Patient Instructions: Understanding Urinary Tract Infections (UTIs) [facility] Usted se hurst hecho un examen mdico de control que le indica que no est en edi condicin que requiera tratamiento urgente en el Departamento de Emergencia. Un estudio ms profundo y el tratamiento de wall condicin pueden esperar sin ningn riesgo hasta que usted sea atendida/o en el consultorio de wall mdico o edi clnica. Es responsabilidad suya arreglar edi maryse para el seguimiento del jorge. MANEJO DE CONDICIONES NO URGENTES EN EL FUTURO 1) Si usted tiene un mdico de atencin primaria: Usted debera llamar a wall mdico de atencin primaria antes de venir al departamento de emergencia. Despus de las horas de consultorio, wall doctor o wall asociado/a est disponible por telfono. El mdico o enfermero de mirtha en el servicio telefnico puede asesorarle por isaac medio para atender el problema, o jorge contrario se puede programar edi maryse. 2) Si usted no tiene un mdico de atencin primaria: Llame al mdico o clnica de referencia que aparece abajo cathleen las horas de consultorio para hacer edi maryse para que le vean. CLINICAS: [facility] [phone] [facility] [phone] [facility] [phone] [facility] [phone] [facility]. [facility] [phone] [facility] [phone] [address] Additional Instructions: Llame al doctor MAANA y anna edi MARYSE PARA DENTRO DE 1-2 PAYNE.Dgale a la secretaria que nosotros le instruimos hacer esta maryse.Avise o llame si wall condicin se empeora antes de la maryse. Regresa aqui si peor o no mejor. CLEVELAND MENDOZA PA-C Jun 24, 2019 20:39
== END 2019-06-24 19:54 | disposition home or self-care (01) ==
LOC: FTE 15:23
DX: N39.0 Urinary tract infection, site not specified (principal); E11.9 Type 2 diabetes mellitus without complications; Z79.84 Long term (current) use of oral hypoglycemic drugs
CPT/HCPCS: 36415; 74176; 80053; 81001; 83690; 83735; 85025; 85610; 85730; 87086; 96361; 96365; 96375; J0696; J2405; J7030; Z7502; Z7610

== ENCOUNTER 2019-08-03 23:09 | Emergency (ER) | payer BC ==
[~2019-08-03] VITALS: Ht 124.5 cm; Wt 62.4 kg
[~2019-08-03 23:09] MED LIST changes: +CALC1TAB79 PO; +CEFT1PIG2 IVPB; +LACT10SO21 PO; +LACT20SO2 PO; +OMEG100024 PO; +RANI150T5 PO
[2019-08-03 23:25] VITALS: BP 123/72; PULSE 81; RESP 18; Ht 124.5 cm; Wt 62.4 kg
[2019-08-04] MEDS ORDERED: KETOROLAC 30 MG INJ IM STA (00:47)
== END 2019-08-04 02:00 | disposition home or self-care (01) ==
LOC: FTE 23:09
DX: N39.0 Urinary tract infection, site not specified (principal); E11.9 Type 2 diabetes mellitus without complications; Z79.84 Long term (current) use of oral hypoglycemic drugs
CPT/HCPCS: 81003; 81025; 96372; J1885; Z7502